=== PATIENT | female | born 1985 | race Caucasian/White ===

== ENCOUNTER → 2016-11-02 | Outpatient (CLI) | payer MEDICARE, OTHER ==
--- NOTE | 2016-11-02 11:49 | FL ---
EXAMINATION TYPE: FL barium swallow w video DATE OF EXAM: 11/02/2016 11:31 AM COMPARISON: NONE HISTORY: Pelvis and debris collection in the posterior nasopharynx. TECHNIQUE: Fluoroscopy. FINDINGS: Fluoroscopic guidance was provided for the procedure performed in conjunction with the [facility] pathology department. Please see complete report forthcoming from the Speech Pathology departmen t. Various consistencies from thin liquid to solids were administered. No aspiration or penetration was evident. No significant pooling was observed in the vallecula. There was normal propulsion of the bolus. IMPRESSION: 1. Normal modified barium swallow.
== END | disposition home or self-care (01) ==
LOC: RADFLMAIN 09:57
PROVIDERS: ATTEND Otolaryngology
DX: R13.10 Dysphagia, unspecified (principal)
CPT/HCPCS: 74230

== ENCOUNTER 2018-05-11 14:40 | Inpatient (IN) | payer MEDICARE, MEDICAID ==
--- NOTE | 2018-05-11 15:43 | ED ---
General Adult HPI - General Chief complaint: Psychiatric Symptoms Stated complaint: Psychosis Time Seen by Provider: 05/11/18 14:47 Source: patient, family, police, EMS, RN notes reviewed Mode of arrival: ambulatory Limitations: altered mental status - History of Present Illness Initial comments: Chief complaint history of present illness this is a 32-year-old female brought emergency room by [employer]. The patient's family filled out a petition. The patient does have history of psychotic breaks in the past. Patient states that she is suffering from past life he has deep. 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 Patient also presents with swollen left wrist left hand which is black and blue. Does not have an explanation as to how that happened. - Related Data Previous Rx's Medication Instructions Recorded ARIPiprazole [Abilify] 15 mg PO DAILY #30 tab 11/26/14 Allergies Allergy/AdvReac Type Severity Reaction Status Date / Time Sulfa (Sulfonamide Allergy Rash/Hives Verified 11/24/14 11:49 Antibiotics) Review of Systems ROS Statement: Those systems with pertinent positive or pertinent negative responses have been documented in the HPI. Review of systems. Due to the patient's general psychotic states she's not answering questions in an appropriate manner. Past medical problems is observed includes psychotic breaks. ALLERGIES to sulfa denies smoking denies drinking. What little history is available, small charges the patient's not answering correctly. ROS Other: All systems not noted in ROS Statement are negative. Past Medical History Past Medical History: No Reported History History of Any Multi-Drug Resistant Organisms: None Reported Past Surgical History: No Surgical Hx Reported Past Anesthesia/Blood Transfusion Reactions: No Reported Reaction Past Psychological History: Schizophrenia Smoking Status: Current every day smoker Past Alcohol Use History: None Reported Past Drug Use History: None Reported - Past Family History Father Family Medical History: No Reported History Additional Family Medical History / Comment(s): Age 52 Mother Family Medical History: No Reported History Additional Family Medical History / Comment(s): Age 52 General Exam - General Exam Comments Initial Comments: General: The patient is awake, appears agitated, speaking in her Rayle's about not see Lobo, [place], medical problems 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 Vital signs shows temperature 90.8 pulse 126 respiratory rate 16 pulse ox 90% room air blood pressure 170/103. Eye: Pupils are equal, round and reactive to light, extra-ocular movements are intact ; there is normal conjunctiva bilaterally. No signs of icterus. Ears, nose, mouth and throat: There are moist mucous membranes and no oral lesions. Neck: The neck is supple, no complaint of neck pain when asked. Cardiovascular: Tachycardic heart rate 120. Respiratory: Lungs are clear to auscultation, respirations are non-labored, breath sounds are equal. No wheezes, stridor, rales, or rhonchi. Gastrointestinal: No apparent discomfort with palpation. No guarding. Back: There is no tenderness to palpation in the midline. There is no obvious deformity. No rashes noted. Musculoskeletal: The patient is not well kept. She does have what there does appear to have been a surgery on the radial aspect of the wrist. The patient states that this was done by a surgeon to gain control over her. appears to be a painful swollen left wrist and hand. Neurological: Patient is able to stand and walk. Move her upper and lower extremities when asked to do so. Skin: Multiple areas where the patient has caused excoriation. Psychiatric: Patient appears to have a psychotic break. Talking gibberish, thinks she is suffering past life PTSD. 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 Limitations: altered mental status Course Vital Signs 05/11/18 05/11/18 14:54 19:04 Temperature 98 F Pulse Rate 126 H 111 H Respiratory 16 18 Rate Blood Pressure 170/103 O2 Sat by Pulse 98 98 Oximetry Procedures - Procedures Initial comment: 6 OCL splint 3" x 12" applied left hand and wrist, short forearm application. Dr. Delgado Medical Decision Making - Medical Decision Making The patient's discharge. Thoughts and conversation continue. Past history of psychotic break. Today's episode seems similar to events with the patient was admitted in medications altered. Labs show white count of 7 hemoglobin 13 hematocrit of 40 with a potassium 4.5. BUN 18 creatinine 0.7 GFR greater than 90. Glucose 122. Toxicology negative for Tylenol, aspirin. Patient was evaluated by psychiatric nurse she spoke with the psychiatrist the patient be admitted to the hospital. Tray of the wrist and hand done and reviewed by the radiologist. His impression is suspected acute fracture through the distal radius and radial aspect pass a prior open reduction internal fixation as read by Dr. Chavez I applied a 3" x 12" OCL splint for stabilization. Patient reports feeling better. No change in neuro status to the fingertips after application of the splint. Patient advised to keep it elevated - Lab Data Result diagrams: 05/11/18 16:32 05/11/18 16:32 Lab Results 05/11/18 05/11/18 Range/Units 16:32 16:32 WBC 7.3 (3.8-10.6) k/uL RBC 4.46 (3.80-5.40) m/uL Hgb 13.0 (11.4-16.0) gm/dL Hct 40.9 (34.0-46.0) % MCV 91.7 (80.0-100.0) fL MCH 29.2 (25.0-35.0) pg MCHC 31.9 (31.0-37.0) g/dL RDW 13.1 (11.5-15.5) % Plt Count 635 H (150-450) k/uL Neutrophils % 63 % Lymphocytes % 28 % Monocytes % 5 % Eosinophils % 1 % Basophils % 0 % Neutrophils # 4.6 (1.3-7.7) k/uL Lymphocytes # 2.1 (1.0-4.8) k/uL Monocytes # 0.4 (0-1.0) k/uL Eosinophils # 0.1 (0-0.7) k/uL Basophils # 0.0 (0-0.2) k/uL Sodium 143 (137-145) mmol/L Potassium 4.5 (3.5-5.1) mmol/L Chloride 107 (98-107) mmol/L Carbon Dioxide 25 (22-30) mmol/L Anion Gap 11 mmol/L BUN 18 H (7-17) mg/dL Creatinine 0.70 (0.52-1.04) mg/dL Est GFR (CKD-EPI)AfAm >90 (>60 ml/min/1.73 sqM) Est GFR (CKD-EPI)NonAf >90 (>60 ml/min/1.73 sqM) Glucose 122 H (74-99) mg/dL Calcium 10.5 H (8.4-10.2) mg/dL Total Bilirubin 0.3 (0.2-1.3) mg/dL AST 40 H (14-36) U/L ALT 38 (9-52) U/L Alkaline Phosphatase 99 (38-126) U/L Total Protein 8.1 (6.3-8.2) g/dL Albumin 5.0 (3.5-5.0) g/dL Salicylates <1.0 mg/dL Acetaminophen <10.0 ug/mL Serum Alcohol <10 mg/dL Disposition Clinical Impression: Psychotic disorder, Fracture of left radius Disposition: TRANSFER TO PSYCH HOSP/UNIT Condition: Serious Is patient prescribed a controlled substance at d/c from ED?: No Referrals: None,Stated [Primary Care Provider] - 1-2 days
[2018-05-11] MEDS ORDERED: SODIUM CHLORIDE 0.9% 500 ML IV STA (15:44)
[2018-05-11 16:45] LABS: Basophils % (A) 0 %; Eosinophils # (A) 0.1 k/uL (0-0.7); Eosinophils % (A) 1 %; HCT 40.9 % (34.0-46.0); Lymphocytes # (A) 2.1 k/uL (1.0-4.8); Lymphocytes % (A) 28 %; MCH 29.2 pg (25.0-35.0); MCHC 31.9 g/dL (31.0-37.0); MCV 91.7 fL (80.0-100.0); Mean Platelet Volume 6.2; Monocytes # (A) 0.4 k/uL (0-1.0); Monocytes % (A) 5 %; Neutrophils # (A) 4.6 k/uL (1.3-7.7); Neutrophils % (A) 63 %; Platelet Count 635 k/uL (150-450); RBC 4.46 m/uL (3.80-5.40); RDW 13.1 % (11.5-15.5); WBC 7.3 k/uL (3.8-10.6)
[2018-05-11 17:26] LABS: ALT 38 U/L (9-52); AST 40 U/L (14-36); Acetaminophen <10.0 ug/mL; Alcohol <10 mg/dL; Alkaline Phosphatase 99 U/L (38-126); Anion Gap 11 mmol/L; Blood Urea Nitrogen 18 mg/dL (7-17); Calcium 10.5 mg/dL (8.4-10.2); Carbon Dioxide 25 mmol/L (22-30); Chloride 107 mmol/L (98-107); Glucose 122 mg/dL (74-99); Potassium 4.5 mmol/L (3.5-5.1); Salicylate <1.0 mg/dL; Sodium 143 mmol/L (137-145); Total Bilirubin 0.3 mg/dL (0.2-1.3); Total Protein 8.1 g/dL (6.3-8.2)
--- NOTE | 2018-05-11 18:22 | XR ---
EXAMINATION TYPE: XR wrist complete LT DATE OF EXAM: 05/11/2018 COMPARISON: None at this location. HISTORY: Pain TECHNIQUE: 4 view left wrist. FINDINGS: There are plate and screws over the distal radius compatible with prior open reduction inte rnal fixation. There appears to be an acute fracture from the radial aspect of the distal radius with extension into the articular surface. This extends past a distal radial screw. The wrist appears intact. Mild diffuse soft tissue swelling appears to be present. IMPRESSION: 1. Suspected acute fracture through the distal radius the radial aspect pass a prior open reduction internal fixation.
--- NOTE | 2018-05-11 18:25 | XR ---
EXAMINATION TYPE: XR hand complete LT DATE OF EXAM: 05/11/2018 COMPARISON: Wrist images same date HISTORY: Pain TECHNIQUE: Three-view left hand FINDINGS: The suspected fracture of the distal radius is again evident. On this image there appears t o be a fracture of the ulnar styloid as well. The hand appears intact. No acute fractures within the hand are evident. Mild joint space narrowing i s present. Soft tissue swelling is over the wrist. IMPRESSION: 1. Fracture of the wrist including the distal radius and likely of the ulnar styloid not as well-vis ualized on the wrist study. 2. The left hand appears intact.
[2018-05-11] MEDS ORDERED: MAG HYDROX/AL HYDROX/SIMETH 30 ML CUP PO PRN (21:10)
[2018-05-11] MEDS ORDERED: ZIPRASIDONE 20 MG VIAL IM PRN (21:10)
[2018-05-11] MEDS ORDERED: MAGNESIUM HYDROXIDE 2,400 MG/10 ML CUP PO PRN (21:10)
[2018-05-11] MEDS ORDERED: LORazepam 1 MG TAB PO PRN (21:10)
[2018-05-11] MEDS ORDERED: ACETAMINOPHEN TAB 325 MG TAB PO PRN (21:10)
[2018-05-11] MEDS ORDERED: LORazepam 2 MG/ML INJ IM PRN (21:31)
[2018-05-11] MEDS ORDERED: WATER FOR INJECTION, STERILE 10 ML IV ONE (21:41)
[2018-05-11] MEDS ORDERED: ZIPRASIDONE 20 MG VIAL IM ONE (21:41)
[2018-05-11] MEDS: DIVALPROEX 500 MG TABLET.DR PO SCH (21:51)
[2018-05-12 00:07] VITALS: BMI 20.2
[2018-05-12] MEDS ORDERED: HALOPERIDOL LACTATE 5 MG/ML 1 ML VIAL IM STA (03:20)
[2018-05-12] MEDS ORDERED: LORazepam 2 MG/ML INJ IM STA (03:22)
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
[2018-05-12] MEDS: ARIPiprazole 10 MG TAB PO SCH (11:05)
[2018-05-12] MEDS: NICOTINE 14MG/24HR PATCH TRANSDERM SCH (11:05)
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
[2018-05-12] MEDS: DIVALPROEX 500 MG TABLET.DR PO SCH (20:11)
[2018-05-12 23:28] LABS: Bilirubin, Delta 0.3 mg/dL (0.0-0.2); Total Bilirubin 0.3 mg/dL (0.2-1.3); Total Protein 8.2 g/dL (6.3-8.2)
[2018-05-13] MEDS: ARIPiprazole 10 MG TAB PO SCH (08:48)
[2018-05-13] MEDS: NICOTINE 14MG/24HR PATCH TRANSDERM SCH (08:49)
[2018-05-13] MEDS ORDERED: ARIPiprazole 400 MG VIAL (NO CHARGE) IM ONE (09:54)
--- NOTE | 2018-05-13 09:59 | P.PN ---
Progress Note - Text Interval history: The patient is found in her room she follows me to an interview room. The patient was admitted again to the mental health unit for acute symptoms of psychosis. A drug screen was not available however this usually occurs in the context of stimulant or opioid use which exacerbates her psychosis. She admits to using Concerta recently before this admission. She was picked up by police his family called for help. The patient was reported to be agitated and demonstrating bizarre behavior. She apparently fractured her left upper extremity and has undergone open reduction internal fixation. She is focused on that injury and getting that cared for. We reviewed her last many mental health note from November. She states that she had stopped going to appointments. We reviewed her current psychotropic medication. She is agreeable to continuing with Abilify and is agreeable to having the Abilify maintena injection again. She was also placed on Depakote. This may not be necessary. I will confer with the treatment team regarding her recent behavior on the mental health unit. Historically she has been managed with Abilify as a mood stabilizer. Mental status exam: The patient is a thin female appearing her stated age. She has a disheveled appearance hygiene seems impaired. She is wearing eyeglasses. She has a splint that is wrapped in gauze involving her left hand and arm. She is dressed in her own attire which appears oversized. She has little spontaneous speech she appears to have some thought blocking. She appears distractible. She is endorsing no symptoms. She denies having any hallucinations or specific delusions. She denies having any thoughts of harming herself or others. She is not a valid historian at this time. She demonstrated no verbal or physical aggressiveness. She demonstrates no abnormal involuntary movements. Insight and judgment are impaired. Affect is flat. Plan: The patient will continue on the Abilify at its current dose. She is agreeable to receiving the Abilify maintena injection which she has been on in the past. We will initiate this at 400 mg IM today. I will consider discontinuing the Depakote as it may not be necessary as an augmentation strategy. I will confirm with staff regarding her behavior on the mental health unit. Vital signs reviewed. We will monitor her for safety. Reality orientation is provided when possible.
[2018-05-13] MEDS ORDERED: ARIPiprazole IM SYRINGE 400 MG (NO CHARGE) IM ONE (10:15)
[2018-05-13 11:52] LABS: Hemoglobin A1C 5.5 % (4.0-6.0)
[2018-05-13] MEDS: IBUPROFEN 600 MG TAB PO PRN (14:05)
--- NOTE | 2018-05-13 15:08 | P.CNOR ---
History of Present Illness - HPI Consult date: 05/13/18 History of present illness: This is a 32 year-old female who is admitted to the mental health unit. Orthopedics is consulted due to left wrist injury. Patient had a fall one week ago. Patient has a history of ORIF of the left wrist. Patient admits to pain in the left wrist today and states that her splint is not supportive. Patient denies any numbness, weakness or tingling. Review of Systems See HPI. Past Medical History Past Medical History: No Reported History, Unable to Obtain Additional Past Medical History / Comment(s): due to acute psychosis History of Any Multi-Drug Resistant Organisms: None Reported Past Surgical History: Unable to Obtain Additional Past Surgical History / Comment(s): xray of the left forearm shows evidence of open reduction and internal fixation of old fracture of the L forearm Past Anesthesia/Blood Transfusion Reactions: No Reported Reaction Past Psychological History: Unable to Obtain Smoking Status: Current every day smoker - Past Family History Father Family Medical History: No Reported History, Unable to Obtain Additional Family Medical History / Comment(s): Age 52 Mother Family Medical History: No Reported History, Unable to Obtain Additional Family Medical History / Comment(s): Age 52 Medications and Allergies Home Medications Medication Instructions Recorded Confirmed Type ARIPiprazole [Abilify] 15 mg PO DAILY #30 tab 11/26/14 05/11/18 Rx Allergies Allergy/AdvReac Type Severity Reaction Status Date / Time Sulfa (Sulfonamide Allergy Rash/Hives Verified 05/11/18 23:06 Antibiotics) Physical Examination On exam patient is lying comfortably in bed in on acute distress. There is no swelling, erythema or ecchymosis of the left wrist. There is tenderness to palpation over the left wrist. Patient has good range of motion of the left hand. Patient has pain with range of motion of the left wrist. Sensation intact. Capillary refill is normal at <2 seconds. Neurovascular status and circulatory status are intact. Results X-rays of the left wrist and hand are negative for any acute fracture or dislocation. Evidence of an old fracture left distal radius. No loosening of hardware. - Labs Labs: Abnormal Lab Results - Last 24 Hours (Table) 05/11/18 Range/Units 16:32 Delta Bilirubin 0.3 H (0.0-0.2) mg/dL AST 44 H (14-36) U/L Cholesterol 205 H (<200) mg/dL LDL Cholesterol, Calc 127 H (0-99) mg/dL H & H 05/11/18 Range/Units 16:32 Hgb 13.0 (11.4-16.0) gm/dL Hct 40.9 (34.0-46.0) % Result Diagrams: 05/11/18 16:32 05/11/18 16:32 Assessment and Plan (1) Left wrist pain Current Visit: Yes Status: Acute Code(s): M25.532 - PAIN IN LEFT WRIST SNOMED Code(s): 28887639 (2) Sprain of left wrist Current Visit: Yes Status: Acute Code(s): S63.502A - UNSPECIFIED SPRAIN OF LEFT WRIST, INITIAL ENCOUNTER SNOMED Code(s): 46120788 Plan: 1. Will obtain a brace for the left wrist. 2. Rest, ice and elevate the left wrist. 3. Work on gentle range of motion. 4. No surgical intervention planned. Patient may follow up as an outpatient on an as needed basis.
[2018-05-13] MEDS: DIVALPROEX 500 MG TABLET.DR PO SCH (20:11)
[2018-05-14] MEDS: NICOTINE 14MG/24HR PATCH TRANSDERM SCH (08:17)
[2018-05-14] MEDS: ARIPiprazole 10 MG TAB PO SCH (08:18)
[2018-05-14] MEDS: IBUPROFEN 600 MG TAB PO PRN ×2 (08:18→16:54)
--- NOTE | 2018-05-14 11:03 | P.PN ---
Progress Note - Text Interval history: The patient's found in her room she follows me to an interview room. Staff report that the patient has been isolating in her room other than meals. She was seen by orthopedics their consult was reviewed. They recommend a brace for her left upper extremity. We reviewed her medications. She has no questions regarding Abilify. She states that the Depakote seems to help stabilize her mood. She denies having any symptoms. Mental status exam: The patient is alert, hygiene grooming are impaired, she has not showered since she's been on the mental health unit. Eye contact is intermittent. She is dressed in the same clothing is yesterday. She has a splint on her left upper extremity which is wrapped in gauze. She quickly denies having any symptoms when asking about suicidal thoughts homicidal thoughts or symptoms of psychosis. She offers little spontaneous speech. She demonstrates no abnormal involuntary movements. She demonstrates no verbal or physical aggressiveness. She maintains a flat affect. Insight and judgment limited. Plan: The patient will continue on her current medications, we will continue to evaluate her daily to assess her clinical stabilization. We will monitor her for safety. She is instructed to shower and participate in the milieu. Vital signs reviewed.
[2018-05-14 17:02] LABS: Amorphous Sediment,Urine Rare /hpf; Appearance,Urine Cloudy (Clear); Bilirubin,Urine Negative (Negative); Blood,Urine Negative (Negative); Color,Urine Yellow; Glucose,Urine (UA) Negative (Negative); Ketones,Urine Negative (Negative); Leukocyte Esterase,Urine Negative (Negative); Mucus,Urine Rare /hpf; Nitrite,Urine Negative (Negative); PH, Urine 6.5 (5.0-8.0); Protein,Urine Negative (Negative); RBC,Urine 1 /hpf (0-5); Specific Gravity,Urine 1.019 (1.001-1.035); Squamous Epithelial Cell,Urine 3 /hpf (0-4); Urobilinogen,Urine <2.0 mg/dL (<2.0)
[2018-05-14 17:10] LABS: Amphetamine Screen,Urine Not Detected (NotDetected); Barbiturate Screen,Urine Not Detected (NotDetected); Benzodiazepines Screen,Urine Not Detected (NotDetected); Cocaine Screen,Urine Not Detected (NotDetected); Methadone Screen, Urine Not Detected (NotDetected); Opiate Screen,Urine Not Detected (NotDetected); Oxycodone Screen, Urine Not Detected (NotDetected); Phencyclidine Screen,Urine Not Detected (NotDetected); Tricyclic Antidepressant,Urine Not Detected (NotDetected); Urn Cannabinoid Scrn Not Detected (NotDetected)
[2018-05-14] MEDS: DIVALPROEX 500 MG TABLET.DR PO SCH (20:20)
[2018-05-15 06:48] VITALS: BP 127/76; PULSE 83; RESP 14; TEMP 98.1
[2018-05-15] MEDS: IBUPROFEN 600 MG TAB PO PRN ×2 (08:28→17:16)
[2018-05-15] MEDS: ARIPiprazole 10 MG TAB PO SCH (08:28)
[2018-05-15] MEDS: NICOTINE 14MG/24HR PATCH TRANSDERM SCH (08:31)
--- NOTE | 2018-05-15 08:41 | P.PN ---
Progress Note - Text Interval history: The patient is found in her room she follows me to an interview room. The patient now has an orthopedic brace on her left hand. She states that she was able to sleep last night to shower yesterday and attended one group. We discussed the importance of her attending most of the groups. In comparison to when she came in she states she feels better. She states that she felt "scrambled". She feels that her thoughts are beginning to become more organized. Mental status exam: The patient is alert she is a thin female appearing her stated age. She is wearing an orthopedic brace on her left hand. She wears her eyeglasses. Hygiene and grooming are improved. She is dressed in hospital gowns. She reports her mood is improved. She continues to deny having any auditory or visual hallucinations or any specific delusions. She presented with acute delusional thought content. She demonstrates no verbal or physical aggressiveness. She is oriented to person place and date. There is some poverty of thought. She does not generate conversation but will provide responses to questions asked. Insight and judgment are limited. She is reporting no suicidal or homicidal ideation intent or plan. Plan: The patient will continue on her current medication. She is instructed to fully engage in the milieu today. She does appear to be stabilizing in terms of her acute symptoms. I anticipate she will be appropriate for discharge in the next 1-2 days. Vital signs reviewed.
[2018-05-15] MEDS: DIVALPROEX 500 MG TABLET.DR PO SCH (20:12)
[2018-05-16] MEDS: IBUPROFEN 600 MG TAB PO PRN (08:20)
[2018-05-16] MEDS: ARIPiprazole 10 MG TAB PO SCH (08:20)
--- NOTE | 2018-05-16 08:40 | P.DS ---
Providers Date of admission: 05/11/18 20:41 Expected date of discharge: 05/16/18 Attending physician: Alek Hill Consults: 05/11/18 21:10 Consult Physician Routine Consulting Provider: James Page Consult Reason/Comments: H & P and medical care Do you want consulting provider notified?: Yes Primary care physician: Stated None - Discharge Diagnosis(es) (1) Schizophrenia Current Visit: Yes Status: Acute Priority: High (2) Stimulant use disorder Current Visit: Yes Status: Acute Priority: High (3) Opioid use disorder Current Visit: Yes Status: Acute Priority: Medium Hospital Course: Brief summary of admission note: This patient is a 32-year-old single female who was admitted to the mental health unit for symptoms of acute psychosis and bizarre agitated behavior. She was brought in by the police as she was petition by family. the patient is known to have a history of schizophrenia and had been noncompliant with medication. She is also known to have a history of stimulant and opiate abuse. For full details please refer to the psychiatric evaluation dated 05/12/2018. Summary of hospital course: The patient was admitted to the mental health unit she did sign in voluntarily. I assumed her care this past Sunday. She was evaluated by the [facility] physician and started on Abilify and Depakote. The patient has been stabilized with Abilify several times in the past. She was agreeable to receiving the Abilify maintena injection. The Abilify maintena injection was given on 05/13/2018. The Depakote was discontinued as it is felt to be unnecessary. The patient isolated in her room for several days but she has been increasing her participation in the milieu especially yesterday. She is alert she has been attending to her activities of daily living and is directable. She did present with a sprain of her left hand she was seen by orthopedics and was given a brace. This is in the context of her having a previous fracture to that extremity. We discussed the patient's substance use as she reported using stimulants not prescribed to her. She does not wish to participate in inpatient chemical dependency treatment. Mental status exam: The patient is a thin female appearing her stated age. She presents with adequate hygiene grooming. She is wearing her eyeglasses she is wearing an orthopedic brace on her left hand. She is dressed in her own clothing. She seated calmly in the chair. Eye contact is appropriate speech is fluent spontaneous nonpressured. She reports her mood is better. She is reporting no suicidal or homicidal ideation intent or plan. She is reporting no auditory or visual hallucinations. She is endorsing no specific delusions. She is demonstrating much less psychomotor slowing. Affect demonstrates some range including smiling and appropriate use of humor. She does not demonstrate any tangential thinking loose associations or flight of ideas. She does not appear hypomanic or manic. She remains oriented to person place and date. She is demonstrating no verbal or physical aggressiveness. She demonstrates no abnormal involuntary movements. Impressions 1. Schizophrenia, stimulant use disorder, opioid use disorder 2. Sprain of left hand, history of fracture to that extremity Plan: The patient will be discharged from the mental health unit to return home. She will continue on Abilify 10 mg daily for a total of 14 days after receiving the Abilify maintena injection. She was given her last Abilify maintena injection on 05/13/2018 which was 400 mg. The Depakote is felt to be unnecessary and I will discontinue that medication. She is instructed to abstain from any use of alcohol or marijuana or any illicit drug. She specifically instructed to abstain from any use of stimulants. We discussed these medications we'll exacerbate symptoms of psychosis and elevate her safety risk area she does not wish to participate in inpatient chemical dependency treatment. She is willing to address these issues along with her symptoms of psychosis as an outpatient and we'll continue to follow with [facility]. She will follow up with orthopedics regarding her left hand as directed. She is instructed to return to the hospital with any acute safety concerns. Patient Condition at Discharge: Stable Plan - Discharge Summary Discharge Rx Participant: Yes New Discharge Prescriptions: New ARIPiprazole [Abilify] 10 mg PO DAILY #11 tab ARIPiprazole IM [Abilify Maintena] 400 mg IM QMONTH #1 vial Discontinued ARIPiprazole [Abilify] 15 mg PO DAILY #30 tab Discharge Medication List ARIPiprazole IM [Abilify Maintena] 400 mg IM QMONTH #1 vial 05/16/18 [Rx] ARIPiprazole [Abilify] 10 mg PO DAILY #11 tab 05/16/18 [Rx] Follow up Appointment(s)/Referral(s): None,Stated [Primary Care Provider] - 1-2 days
== END 2018-05-16 12:53 | disposition home or self-care (01) | DRG 885 ==
LOC: EC 14:40 → EEVIPCON 20:41 → 3MHU 20:41
PROVIDERS: ADMIT Psychiatry & Neurology Psychiatry; ATTEND Psychiatry & Neurology Psychiatry
DX: F20.0 Paranoid schizophrenia (principal); S52.92XA Unspecified fracture of left forearm, initial encounter for closed fracture; F11.10 Opioid abuse, uncomplicated; F15.10 Other stimulant abuse, uncomplicated; F17.200 Nicotine dependence, unspecified, uncomplicated; S63.502A Unspecified sprain of left wrist, initial encounter; V18.4XXA Pedal cycle driver injured in noncollision transport accident in traffic accident, initial encounter; Y93.55 Activity, bike riding; Z79.899 Other long term (current) drug therapy; Z91.14 Patient's other noncompliance with medication regimen; Z88.2 Allergy status to sulfonamides
CPT/HCPCS: 29125; 36415; 80053; 80061; 80076; 80306; 80320; 81001; 83036; 83520; 84443; 84703; 85025; 96360; 99285

== ENCOUNTER 2018-05-23 13:47 | Inpatient (IN) | payer MEDICARE, MEDICAID ==
--- NOTE | 2018-05-23 14:32 | ED ---
General Adult HPI - General Chief complaint: Psychiatric Symptoms Stated complaint: Mental Health Time Seen by Provider: 05/23/18 13:49 Source: patient, police, RN notes reviewed Mode of arrival: ambulatory Limitations: no limitations - History of Present Illness Initial comments: Patient is a 32-year-old female presenting to the emergency department with secretary of police escort. Patient is petition. Patient states she was taken from her trailer where she is doing work in [employer]. Patient is singing most of her sentences and sings spontaneously disorganized thoughts. Patient also mentions concerns regarding a federal agent. Patient also states she needs to contact the master of [employer]. She states he is too busy at this time for her to contact him. Patient otherwise states she has no problems. Patient denies any hallucinations. Patient states she is taking her medications. Patient has no physical complaints. - Related Data Previous Rx's Medication Instructions Recorded ARIPiprazole [Abilify] 10 mg PO DAILY #11 tab 05/16/18 Allergies Allergy/AdvReac Type Severity Reaction Status Date / Time Sulfa (Sulfonamide Allergy Rash/Hives Verified 05/23/18 14:57 Antibiotics) Review of Systems ROS Statement: Those systems with pertinent positive or pertinent negative responses have been documented in the HPI. ROS Other: All systems not noted in ROS Statement are negative. Constitutional: Denies: fever Eyes: Denies: eye pain ENT: Denies: ear pain Respiratory: Denies: cough Cardiovascular: Denies: chest pain Endocrine: Denies: fatigue Gastrointestinal: Denies: abdominal pain Genitourinary: Denies: dysuria Musculoskeletal: Denies: back pain Skin: Denies: rash Neurological: Denies: weakness Psychiatric: Denies: auditory hallucinations, visual hallucinations, homicidal thoughts, suicidal thoughts Past Medical History Past Medical History: No Reported History, Unable to Obtain Additional Past Medical History / Comment(s): due to acute psychosis History of Any Multi-Drug Resistant Organisms: None Reported Past Surgical History: Unable to Obtain Additional Past Surgical History / Comment(s): xray of the left forearm shows evidence of open reduction and internal fixation of old fracture of the L forearm Past Anesthesia/Blood Transfusion Reactions: No Reported Reaction Past Psychological History: Unable to Obtain Smoking Status: Current every day smoker - Past Family History Father Family Medical History: No Reported History, Unable to Obtain Additional Family Medical History / Comment(s): Age 52 Mother Family Medical History: No Reported History, Unable to Obtain Additional Family Medical History / Comment(s): Age 52 General Exam Limitations: no limitations General appearance: alert, in no apparent distress Head exam: Present: atraumatic Eye exam: Present: normal appearance ENT exam: Present: normal oropharynx Neck exam: Present: normal inspection Respiratory exam: Present: normal lung sounds bilaterally Cardiovascular Exam: Present: regular rate, normal rhythm GI/Abdominal exam: Present: soft. Absent: tenderness Extremities exam: Present: normal inspection Neurological exam: Present: alert Psychiatric exam: Present: other (Flight of ideas. Hypomanic. Disorganized thoughts.) Skin exam: Present: normal color Course Vital Signs 05/23/18 13:56 Temperature 97.6 F Pulse Rate 114 H Respiratory 22 Rate Blood Pressure 136/84 O2 Sat by Pulse 99 Oximetry Medical Decision Making - Medical Decision Making Patient was seen by mental health services with plans for admission. Positive clinical certificate completed. Disposition Clinical Impression: Acute psychosis Disposition: TRANSFER TO PSYCH HOSP/UNIT Is patient prescribed a controlled substance at d/c from ED?: No Referrals: None,Stated [Primary Care Provider] - 1-2 days Decision Time: 16:04
[2018-05-23] MEDS ORDERED: ZIPRASIDONE 20 MG VIAL IM STA (15:28)
[2018-05-23] MEDS ORDERED: LORazepam 2 MG/ML INJ IM STA (15:29)
[2018-05-23] MEDS ORDERED: MAGNESIUM HYDROXIDE 2,400 MG/10 ML CUP PO PRN (16:18)
[2018-05-23] MEDS ORDERED: MAG HYDROX/AL HYDROX/SIMETH 30 ML CUP PO PRN (16:18)
[2018-05-23] MEDS ORDERED: ZIPRASIDONE 20 MG VIAL IM PRN (16:18)
[2018-05-23] MEDS: ARIPiprazole 10 MG TAB PO SCH (17:09)
[2018-05-23] MEDS: NICOTINE 14MG/24HR PATCH TRANSDERM SCH (17:11)
[2018-05-23 17:13] VITALS: BMI 17.2
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
[2018-05-24] MEDS: ARIPiprazole 10 MG TAB PO SCH (09:18)
[2018-05-24] MEDS: NICOTINE 14MG/24HR PATCH TRANSDERM SCH (09:19)
[2018-05-24 09:35] LABS: Basophils # (A) 0.1 k/uL (0-0.2); Basophils % (A) 1 %; Eosinophils # (A) 0.1 k/uL (0-0.7); Eosinophils % (A) 2 %; HCT 39.5 % (34.0-46.0); Lymphocytes # (A) 1.4 k/uL (1.0-4.8); Lymphocytes % (A) 20 %; MCH 30.3 pg (25.0-35.0); MCHC 32.8 g/dL (31.0-37.0); MCV 92.5 fL (80.0-100.0); Mean Platelet Volume 6.4; Monocytes # (A) 0.3 k/uL (0-1.0); Monocytes % (A) 4 %; Neutrophils # (A) 5.3 k/uL (1.3-7.7); Neutrophils % (A) 73 %; Platelet Count 477 k/uL (150-450); RBC 4.27 m/uL (3.80-5.40); RDW 12.7 % (11.5-15.5); WBC 7.2 k/uL (3.8-10.6)
[2018-05-24 10:13] LABS: ALT 32 U/L (9-52); AST 23 U/L (14-36); Albumin 4.3 g/dL (3.5-5.0); Alkaline Phosphatase 80 U/L (38-126); Anion Gap 9 mmol/L; Bilirubin, Delta 0.3 mg/dL (0.0-0.2); Bilirubin,Unconjugated 0.1 mg/dL (0.0-1.1); Blood Urea Nitrogen 19 mg/dL (7-17); Calcium 9.8 mg/dL (8.4-10.2); Carbon Dioxide 26 mmol/L (22-30); Chloride 106 mmol/L (98-107); Glucose 150 mg/dL (74-99); Sodium 141 mmol/L (137-145); Total Bilirubin 0.4 mg/dL (0.2-1.3)
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
[2018-05-24] MEDS: ACETAMINOPHEN TAB 325 MG TAB PO PRN (13:31)
[2018-05-25] MEDS: ACETAMINOPHEN TAB 325 MG TAB PO PRN (08:23)
[2018-05-25] MEDS: ARIPiprazole 10 MG TAB PO SCH (08:23)
[2018-05-25] MEDS: NICOTINE 14MG/24HR PATCH TRANSDERM SCH (08:23)
[2018-05-25] MEDS: LORazepam 1 MG TAB PO PRN (15:28)
--- NOTE | 2018-05-25 15:30 | P.PN ---
Progress Note - Text Progress Note Date: 05/25/18 Interval history: Patient seen in cross coverage today. She describes that she had been having thoughts that the RAMEZ was getting inside her mind. She reports that she is not thinking this way today. She was just recently hospitalized as an inpatient states she received an injection of Abilify maintenna. Mental status exam: She is alert and cooperative with the interview. Her affect overall is restricted. She describes her mood as "embarrassed." She denies any thoughts of harm to self or others. She reports that she had been dealing with thoughts that the RAMEZ was getting inside her mind, currently denies these thoughts. She does not verbalize any hallucinations. Plan: Patient will be maintained on current psychotropic medication regimen. Continue to monitor for any medication side effects and monitor her ongoing response. We'll continue to cover this patient through the weekend.
[2018-05-26] MEDS: ARIPiprazole 10 MG TAB PO SCH (08:31)
[2018-05-26] MEDS: NICOTINE 14MG/24HR PATCH TRANSDERM SCH (08:31)
--- NOTE | 2018-05-26 15:32 | P.PN ---
Progress Note - Text Progress Note Date: 05/26/18 Interval history: Patient is seen in [facility] again today. She does state that her mood is doing pretty good today. She states that she did eat breakfast and lunch today. She does not voice any adverse psychotropic medication side effects. Mental status exam: She is alert and cooperative with the interview. Her answers are fairly brief. She has overall restricted affect. She denies any thoughts of harm to self or others. She denies any paranoid/bothersome thoughts. She describes her mood is doing pretty good. Plan: Patient will be maintained on current psychotropic medication regimen. Continue to monitor for any medication side effects and monitor her ongoing response to treatment. Continue to monitor for any psychosis symptoms.
[2018-05-26] MEDS: LORazepam 1 MG TAB PO PRN (17:31)
[2018-05-27] MEDS: NICOTINE 14MG/24HR PATCH TRANSDERM SCH (09:05)
[2018-05-27] MEDS: ARIPiprazole 10 MG TAB PO SCH (09:05)
--- NOTE | 2018-05-27 10:26 | P.PN ---
Progress Note - Text Progress Note Date: 05/27/18 Interval History: Patient is a 32-year-old female who is being seen in coverage for Dr. Hill patient reports that she is feeling better but cannot elaborate on that further. She states she has not been attending groups or activities and has been sleeping and eating well. She denies any side effects from the medication. Mental Status: Appearance/Attitude: Patient is found in her room comes to the interview room dressed casually and makes intermittent eye contact and was cooperative. Behavior: Patient does not exhibit any psychomotor agitation or retardation. Speech/Language: Patient's speech is of normal volume and rhythm and she is coherent Thought Process: Patient's answers are brief and goal directed with little elaboration Thought Content: Patient denies any auditory or visual hallucinations and no delusions or paranoid ideation were elicited. Patient states she's been sleeping and eating well but has not been attending groups or activities and does not report any side effects. Suicidal/Homicidal Ideation: Patient denies any current suicidal or homicidal ideation Sensorium/Cognition: Patient is alert and oriented to person, place and time Mood/Affect: Patient's mood is pleasant and her affect is blunted Insight/Judgment: Patient's insight and judgment are fair Assessment: Patient continues on Abilify 10 mg orally and states that she is not having any psychotic symptoms and was not feeling suicidal or depressed. Patient has been compliant with her medications here. She is not attending groups or activities. She reports that she is sleeping and eating well and no side effects from the medication. Plan: Patient continues on Abilify 10 mg, she received her long-acting injectable Abilify on May 13. Patient continues to require hospitalization to further stabilize.
[2018-05-27] MEDS: LORazepam 1 MG TAB PO PRN (16:12)
[2018-05-27] MEDS: ACETAMINOPHEN TAB 325 MG TAB PO PRN (16:12)
[2018-05-28] MEDS: ARIPiprazole 10 MG TAB PO SCH (08:18)
[2018-05-28] MEDS: NICOTINE 14MG/24HR PATCH TRANSDERM SCH (08:18)
--- NOTE | 2018-05-28 11:15 | P.PN ---
Progress Note - Text Interval history: The patient is found in her room she follows me to an interview room. The patient was readmitted for an exacerbation of her psychotic symptoms. She states she did not engage in any substance use but did go off of the oral Abilify. That has been since restarted upon her readmission. She states that she continues to have concerns that the government is placing applications on her brain and that she is able to be tracked. She reports being fearful of going to groups as the government can "track paranoid schizophrenia". She states she will attempt groups now but we talked about it. Since she has been here she feels a little safer. She describes being limited because of the temporary wrist brace she is wearing. Prior to last hospitalization she had sprained her left wrist. Mental status exam: The patient is an alert disheveled female she is than she is dressed in layers. She is wearing a temporary brace on her left upper extremity. She wears eyeglasses. She is cooperative. She does have spontaneous speech. She demonstrates no pressured speech. She is reporting no suicidal or homicidal ideation. She discusses her fearfulness that she is being tracked and does not wish to discuss her thoughts with others as this will worsen the monitoring. She describes the government being able to place applications on her brain. She does have a repetitive motion of sticking her tongue out during the session several times we will track this further. Plan: The patient will continue on the current medication she did stabilize on the oral Abilify last time all waiting for the Abilify maintena to reach efficacy. She is encouraged to attend groups we will monitor her food intake. Vital signs reviewed.
[2018-05-28] MEDS: ACETAMINOPHEN TAB 325 MG TAB PO PRN (15:46)
[2018-05-28] MEDS: LORazepam 1 MG TAB PO PRN (15:46)
[2018-05-29] MEDS: ARIPiprazole 10 MG TAB PO SCH (08:21)
--- NOTE | 2018-05-29 10:53 | P.PN ---
Progress Note - Text Interval history: The patient is found in her room she follows me to an interview room. She states she's feeling better. She states she was admitted here because she thought "we were going to war". She also indicates that the stress of just using one arm was overwhelming which also facilitated the admission. She states that she has been attending groups staff agreed that her group participation has increased. She reports eating meals. Mental status exam: The patient is a thin female appearing her stated age. She is wearing her eyeglasses she is dressed in her own clothing and is wearing a brace on her left wrist. She removes the brace and shows me the surgical wound which is closed with no sign of infection. She reports her mood is better. She maintains a bland affect. She is reporting no suicidal or homicidal ideation. It does appear that symptoms of psychosis seem to be improving. She demonstrates no verbal or physical aggressiveness. Again she seems to be protruding her tongue intermittently throughout the session area she was asked if she is doing this voluntarily and she was uncertain. She does indicate that her lips are dry. Plan: The patient will continue on her current psychotropic medication. It does appear that she is responding to the Abilify again. She is not sufficiently stabilized yet but may be appropriate for discharge sometime this week. We will monitor her by mouth intake and group participation. We will monitor for safety. Vital signs reviewed.
[2018-05-29] MEDS: ACETAMINOPHEN TAB 325 MG TAB PO PRN (15:21)
[2018-05-29] MEDS: LORazepam 1 MG TAB PO PRN (15:23)
[2018-05-30] MEDS: ARIPiprazole 10 MG TAB PO SCH (08:02)
--- NOTE | 2018-05-30 09:17 | P.PN ---
Progress Note - Text Interval history: The patient is found in the hallway she follows me to an interview room. She did attend goalsetting group this morning and states that she attended several groups yesterday. She states her mood is good. She indicates that she slept last night appetite is stable. She reports feeling safe in the hospital. She has no questions or concerns regarding her medication. Mental status exam: The patient's is dressed in her own clothing and hospital attire. She is wearing her eyeglasses and continues to wear the brace on her left wrist. She is seated in the chair she does shake her legs during the session. She does continue to have an intermittent protrusion of her tongue. She indicates her mood is good. Affect is constricted. She is reporting no suicidal or homicidal ideation intent or plan. She has little spontaneous speech but does provide an answer to questions asked. Thinking appears to be concrete. She demonstrates no verbal or physical aggressiveness. She is oriented to person place and date. She demonstrates no tangential thinking loose associations or flight of ideas. She denies having any auditory or visual hallucinations. She reports feeling safe and endorses no paranoid or persecutory thoughts. Plan: The patient continue on her current psychotropic medication. We continue to provide the oral form of the Abilify as we wait for the Abilify maintena to demonstrate efficacy. The patient appears to be stabilizing again here in the hospital. She may be appropriate for discharge as early as tomorrow. I will confer with the treatment team regarding her behavior over the last 24 hours. We'll continue to monitor her for safety.
[2018-05-30 11:30] LABS: Amphetamine Screen,Urine Not Detected (NotDetected); Barbiturate Screen,Urine Not Detected (NotDetected); Benzodiazepines Screen,Urine Detected (NotDetected); Cocaine Screen,Urine Not Detected (NotDetected); Methadone Screen, Urine Not Detected (NotDetected); Opiate Screen,Urine Not Detected (NotDetected); Oxycodone Screen, Urine Not Detected (NotDetected); Phencyclidine Screen,Urine Not Detected (NotDetected); Tricyclic Antidepressant,Urine Not Detected (NotDetected); Urn Cannabinoid Scrn Not Detected (NotDetected)
[2018-05-30 12:36] LABS: Appearance,Urine Turbid (Clear); Bilirubin,Urine Negative (Negative); Blood,Urine Negative (Negative); Color,Urine Light Yellow; Glucose,Urine (UA) Negative (Negative); Ketones,Urine Negative (Negative); Leukocyte Esterase,Urine Negative (Negative); Mucus,Urine Rare /hpf; Nitrite,Urine Negative (Negative); Protein,Urine Negative (Negative); Specific Gravity,Urine 1.012 (1.001-1.035); Squamous Epithelial Cell,Urine 1 /hpf (0-4); Urobilinogen,Urine <2.0 mg/dL (<2.0)
[2018-05-30] MEDS: LORazepam 1 MG TAB PO PRN (14:48)
[2018-05-30] MEDS: ACETAMINOPHEN TAB 325 MG TAB PO PRN (14:48)
[2018-05-31 06:35] VITALS: BP 105/51; PULSE 74; RESP 20; TEMP 98.2
[2018-05-31] MEDS: ARIPiprazole 10 MG TAB PO SCH (08:51)
--- NOTE | 2018-05-31 10:59 | P.DS ---
Providers Date of admission: 05/23/18 16:15 Expected date of discharge: 05/31/18 Attending physician: Alek Hill Consults: 05/23/18 16:18 Consult Physician Routine Consulting Provider: James Physician Consult Reason/Comments: Medical care Do you want consulting provider notified?: Yes Primary care physician: Stated None - Discharge Diagnosis(es) (1) Schizophrenia Current Visit: No Status: Acute Priority: High (2) Stimulant use disorder Current Visit: Yes Status: Acute Priority: High (3) Opioid use disorder Current Visit: No Status: Acute Priority: Medium Hospital Course: Brief summary admission note: The patient is a 32-year-old single female who was admitted to the mental health unit with a relapse of psychotic symptoms. The patient is known to us and had a recent admission for a similar presentation. She has a known history of schizophrenia. During her last hospitalization she was started on Abilify maintena and was provided with the oral medication until the depot form reached steady state. Upon discharge the patient did not comply with the oral Abilify and experienced symptoms of psychosis that were debilitating. She had presented stating we were at war and she felt she was in danger. For full details please refer to the psychiatric evaluation performed on 05/24/2018. Summary of hospital course: The patient was admitted to the mental health unit she signed in voluntarily. The oral Abilify was restarted. The patient initially did not attend groups but as she improved she became more active and participated. She noted a resolution of her psychotic symptoms while here. Again she was seen by internal medicine for routine history and physical exam. No further attention was needed regarding her orthopedic issue involving her left wrist. She demonstrated no agitated behavior no aggressiveness. She will be participating in a support meeting involving her friend Shekhar today prior to discharge. Mental status exam: The patient is a thin female appearing her stated age. She is wearing eyeglasses and her left wrist brace. She is dressed in her own clothing and a hospital gown. Speech is fluent nonpressured. She has little spontaneous speech but provides answers to questions asked although brief. She states her mood is fine. She has a constricted affect. She reports no suicidal or homicidal ideation intent or plan. She is endorsing no auditory or visual hallucinations or any specific delusions. There is no observed evidence of psychosis. She demonstrates no tangential thinking loose associations or flight of ideas. She does not appear hypomanic or manic. Insight and judgment grossly intact. During the stay she has demonstrated some protrusion her tongue but none today. She is oriented to person place and date. Impressions 1. Schizophrenia, stimulant use disorder, opioid use disorder Plan: The patient will be discharged from mental health unit today to return to her own residence residing with a friend. She will follow up with [facility] social work will confirm that appointment. She will follow- up with orthopedics as previously scheduled. She is instructed to abstain from any use of alcohol marijuana or any other substance as it may elevate her safety risk and or cause an exacerbation of psychotic symptoms. She was provided and Abilify maintena injection with her last stay is not yet due for another dose this will be given as an outpatient. At this time is no imminent safety risk she is appropriate for transition outpatient care. She is instructed to return to the hospital any acute safety concerns. Patient Condition at Discharge: Stable Plan - Discharge Summary Discharge Rx Participant: No New Discharge Prescriptions: Continue ARIPiprazole IM [Abilify Maintena] 400 mg IM QMONTH ARIPiprazole [Abilify] 10 mg PO DAILY #14 tab Discharge Medication List ARIPiprazole IM [Abilify Maintena] 400 mg IM QMONTH 05/23/18 [History] ARIPiprazole [Abilify] 10 mg PO DAILY #14 tab 05/31/18 [Rx] Follow up Appointment(s)/Referral(s): [facility] [Outside] - 06/03/18 4:00 pm (06-03-18 @ 4:00 with Gabbie Robertson 06-14-18 @ 2:00 with Malu Chavez ) None,Stated [Primary Care Provider] - 1-2 days
== END 2018-05-31 14:49 | disposition home or self-care (01) | DRG 885 ==
LOC: EC 13:47 → 3MHU 16:15
PROVIDERS: ADMIT Psychiatry & Neurology Psychiatry; ATTEND Psychiatry & Neurology Psychiatry
DX: F20.9 Schizophrenia, unspecified (principal); F11.10 Opioid abuse, uncomplicated; F15.10 Other stimulant abuse, uncomplicated; F17.200 Nicotine dependence, unspecified, uncomplicated; Z79.899 Other long term (current) drug therapy; Z91.14 Patient's other noncompliance with medication regimen; Z88.2 Allergy status to sulfonamides; Z91.410 Personal history of adult physical and sexual abuse; S62.92XS Unspecified fracture of left hand, sequela; V19.3XXS Pedal cyclist (driver) (passenger) injured in unspecified nontraffic accident, sequela; M25.532 Pain in left wrist
CPT/HCPCS: 80053; 80306; 81001; 81025; 82075; 82248; 84443; 85025; 96372; 99284

== ENCOUNTER 2018-08-23 13:46 | Inpatient (IN) | payer MEDICARE, MEDICAID ==
[2018-08-23] MEDS ORDERED: LORazepam 1 MG TAB PO STA ×2 (13:50→13:52)
--- NOTE | 2018-08-23 15:15 | ED ---
Psych HPI - General Chief Complaint: Psychiatric Symptoms Stated Complaint: Mental health Time Seen by Provider: 08/23/18 13:46 Source: police, EMS, RN notes reviewed Mode of arrival: EMS - History of Present Illness Initial Comments: This is a 33-year-old female was brought in by police and paramedics for agitation and confusion she was barricaded in her house and would not come out. She was very verbally and physically threatening. She is brought in here on a pickup order. He didn't demonstrate flight of ideas. Thinking that went his cockroaches she was again barricaded in her house that wearing clothing she had a be extricated. She's not been sleeping she's been hallucinating. She denies any alcohol or drugs. She has not been taking her medication per report. MD Complaint: other - Related Data Home Medications Medication Instructions Recorded Confirmed ARIPiprazole [Abilify] 15 mg PO HS 08/23/18 08/23/18 Trihexyphenidyl HCl 2 mg PO TID 08/23/18 08/23/18 cloNIDine HCL [Catapres] 0.1 mg PO HS 08/23/18 08/23/18 Allergies Allergy/AdvReac Type Severity Reaction Status Date / Time Sulfa (Sulfonamide Allergy Rash/Hives Verified 08/23/18 14:20 Antibiotics) Review of Systems ROS Statement: Those systems with pertinent positive or pertinent negative responses have been documented in the HPI. ROS Other: All systems not noted in ROS Statement are negative. Past Medical History Past Medical History: No Reported History, Unable to Obtain Additional Past Medical History / Comment(s): due to acute psychosis History of Any Multi-Drug Resistant Organisms: None Reported Past Surgical History: Unable to Obtain Additional Past Surgical History / Comment(s): xray of the left forearm shows evidence of open reduction and internal fixation of old fracture of the L forearm Past Anesthesia/Blood Transfusion Reactions: No Reported Reaction Past Psychological History: Unable to Obtain Smoking Status: Current every day smoker Past Alcohol Use History: None Reported Past Drug Use History: None Reported - Past Family History Father Family Medical History: No Reported History, Unable to Obtain Additional Family Medical History / Comment(s): Age 52 Mother Family Medical History: No Reported History, Unable to Obtain Additional Family Medical History / Comment(s): Age 52 General Exam - General Exam Comments Initial Comments: This a well-developed asthenic appearing female who is awake alert demonstrating tangential thoughts flight of ideas with pressured speech. Limitations: no limitations General appearance: alert, anxious Head exam: Present: atraumatic, normocephalic, normal inspection Eye exam: Present: normal appearance, PERRL, EOMI. Absent: scleral icterus, conjunctival injection, periorbital swelling ENT exam: Present: mucous membranes dry Neck exam: Present: normal inspection. Absent: tenderness, meningismus, lymphadenopathy Respiratory exam: Present: normal lung sounds bilaterally. Absent: respiratory distress, wheezes, rales, rhonchi, stridor Cardiovascular Exam: Present: normal rhythm, bradycardia, normal heart sounds. Absent: systolic murmur, diastolic murmur, rubs, gallop, clicks GI/Abdominal exam: Present: soft, normal bowel sounds. Absent: distended, tenderness, guarding, rebound, rigid Extremities exam: Present: normal inspection, full ROM, normal capillary refill. Absent: tenderness, pedal edema, joint swelling, calf tenderness Back exam: Present: normal inspection Neurological exam: Present: alert, oriented X3, CN II-XII intact Psychiatric exam: Present: normal affect, normal mood Skin exam: Present: warm, dry, intact, normal color. Absent: rash Course Vital Signs 08/23/18 13:56 Temperature 97.7 F Pulse Rate 50 L Respiratory 22 Rate Blood Pressure 142/93 O2 Sat by Pulse 99 Oximetry Medical Decision Making - Medical Decision Making Hgb require oral medication for sedation. Patient was evaluated by psychiatric service and will be admitted for inpatient treatment of schizophrenia and acute psychosis. Disposition Clinical Impression: Schizophrenia, Acute exacerbation of psychosis Disposition: TRANSFER TO PSYCH HOSP/UNIT Condition: Stable Referrals: None,Stated [Primary Care Provider] - 1-2 days
[2018-08-23 15:32] LABS: Amphetamine Screen,Urine Detected (NotDetected); Barbiturate Screen,Urine Not Detected (NotDetected); Benzodiazepines Screen,Urine Not Detected (NotDetected); Cocaine Screen,Urine Not Detected (NotDetected); Methadone Screen, Urine Not Detected (NotDetected); Opiate Screen,Urine Not Detected (NotDetected); Oxycodone Screen, Urine Not Detected (NotDetected); Phencyclidine Screen,Urine Not Detected (NotDetected); Tricyclic Antidepressant,Urine Not Detected (NotDetected); Urn Cannabinoid Scrn Not Detected (NotDetected)
[2018-08-23] MEDS ORDERED: MAGNESIUM HYDROXIDE 2,400 MG/10 ML CUP PO PRN (15:44)
[2018-08-23] MEDS ORDERED: ZIPRASIDONE 20 MG VIAL IM PRN (15:44)
[2018-08-23] MEDS ORDERED: MAG HYDROX/AL HYDROX/SIMETH 30 ML CUP PO PRN (15:44)
[2018-08-23] MEDS ORDERED: ACETAMINOPHEN TAB 325 MG TAB PO PRN (15:44)
[2018-08-23] MEDS ORDERED: LORazepam 2 MG/ML INJ IM PRN (15:50)
[2018-08-23] MEDS: TRIHEXYPHENIDYL 2 MG TAB PO SCH ×2 (16:01→21:12)
[2018-08-23] MEDS: cloNIDine HCL 0.1 MG TAB PO SCH ×2 (21:12→21:54)
[2018-08-23] MEDS: ARIPiprazole 15 MG TAB PO SCH (21:12)
[2018-08-24] MEDS: TRIHEXYPHENIDYL 2 MG TAB PO SCH ×3 (07:56→21:07)
[2018-08-24 09:16] LABS: Basophils # (A) 0.1 k/uL (0-0.2); Basophils % (A) 1 %; Eosinophils # (A) 0.3 k/uL (0-0.7); Eosinophils % (A) 4 %; HCT 38.8 % (34.0-46.0); HGB 12.2 gm/dL (11.4-16.0); Lymphocytes # (A) 1.5 k/uL (1.0-4.8); Lymphocytes % (A) 23 %; MCH 29.4 pg (25.0-35.0); MCHC 31.6 g/dL (31.0-37.0); Mean Platelet Volume 6.2; Monocytes # (A) 0.4 k/uL (0-1.0); Monocytes % (A) 5 %; Neutrophils # (A) 4.3 k/uL (1.3-7.7); Neutrophils % (A) 65 %; Platelet Count 453 k/uL (150-450); RBC 4.17 m/uL (3.80-5.40); RDW 12.7 % (11.5-15.5); WBC 6.6 k/uL (3.8-10.6)
[2018-08-24 09:23] LABS: ALT 45 U/L (9-52); AST 35 U/L (14-36); Alkaline Phosphatase 92 U/L (38-126); Anion Gap 10 mmol/L; Bilirubin, Delta 0.4 mg/dL (0.0-0.2); Bilirubin,Unconjugated 0.1 mg/dL (0.0-1.1); Blood Urea Nitrogen 15 mg/dL (7-17); Calcium 9.4 mg/dL (8.4-10.2); Carbon Dioxide 22 mmol/L (22-30); Chloride 109 mmol/L (98-107); Cholesterol 160 mg/dL (<200); Glucose 102 mg/dL (74-99); HDL Cholesterol 63 mg/dL (40-60); LDL Cholesterol,Calculated 88 mg/dL (0-99); Potassium 4.2 mmol/L (3.5-5.1); Sodium 141 mmol/L (137-145); Total Bilirubin 0.5 mg/dL (0.2-1.3); Total Protein 6.7 g/dL (6.3-8.2); Triglycerides 43 mg/dL (<150)
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
[2018-08-24 17:53] LABS: Hemoglobin A1C 5.2 % (4.0-6.0)
[2018-08-24] MEDS: ARIPiprazole 15 MG TAB PO SCH (21:07)
[2018-08-24] MEDS: cloNIDine HCL 0.1 MG TAB PO SCH (21:07)
--- NOTE | 2018-08-24 23:44 | P.MDCNMH ---
History of Present Illness H&P Date: 08/24/18 Chief Complaint: Psychosis Patient is a 33-year-old female with a known history of schizophrenia was brought to the hospital by police and paramedics for agitation and confusion. She was barricaded in her house and would not come out. Patient was verbally and physically threatening. Patient was brought to the hospital by police. Apparently patient has not been sleeping and was having hallucinations, thinking about cockroaches went over again. Denied any alcohol abuse. UDS is positive for amphetamines. Patient does smoke on daily basis. Patient has not been taking her medications. Currently denied any complaints of chest pain or shortness of breath. No nausea vomiting or abdominal pain or diarrhea. No fever no chills. No cough or sputum production. No headache or dizziness or lightheadedness. Review of Systems Constitutional: Patient denies any fever or chills . No generalized weakness or weight loss. Abdomen: Patient denied nausea vomiting and diarrhea and abdominal pain. Cardiovascular: Patient denies any chest pain or short of breath no palpitations. Respiratory: patient denied any cough is from production. No shortness of breath Neurologic: Patient denied any numbness or tingling headache. Musculoskeletal: Patient denies any complaints of joint swelling or deformity. Skin: Negative Psychiatric: Anxious and agitated Endocrine: No heat or cold intolerance. No recent weight gain. Genitourinary: No dysuria or hematuria. All other 14 point ROS negative except the above Past Medical History Past Medical History: No Reported History, Unable to Obtain Additional Past Medical History / Comment(s): due to acute psychosis History of Any Multi-Drug Resistant Organisms: None Reported Past Surgical History: Unable to Obtain Additional Past Surgical History / Comment(s): xray of the left forearm shows evidence of open reduction and internal fixation of old fracture of the L forearm Past Anesthesia/Blood Transfusion Reactions: No Reported Reaction Past Psychological History: Unable to Obtain Smoking Status: Current every day smoker Past Alcohol Use History: None Reported Past Drug Use History: None Reported - Past Family History Father Family Medical History: No Reported History, Unable to Obtain Additional Family Medical History / Comment(s): Age 52 Mother Family Medical History: No Reported History, Unable to Obtain Additional Family Medical History / Comment(s): Age 52 Medications and Allergies Home Medications Medication Instructions Recorded Confirmed Type ARIPiprazole [Abilify] 15 mg PO HS 08/23/18 08/23/18 History Trihexyphenidyl HCl 2 mg PO TID 08/23/18 08/23/18 History cloNIDine HCL [Catapres] 0.1 mg PO HS 08/23/18 08/23/18 History Allergies Allergy/AdvReac Type Severity Reaction Status Date / Time Sulfa (Sulfonamide Allergy Rash/Hives Verified 08/23/18 14:20 Antibiotics) Physical Exam Vitals: Vital Signs Temp Pulse Pulse Resp BP BP Pulse Ox 08/24/18 06:20 73 12 110/65 08/23/18 21:10 101/61 08/23/18 15:55 90 20 99/65 08/23/18 13:56 97.7 F 50 L 22 142/93 99 PHYSICAL EXAMINATION: Patient is lying in the bed comfortably, no acute distress, awake alert and oriented.. HEENT: Normocephalic. Neck is supple. Pupils reactive. Nostrils clear. Oral cavity is moist. Ears reveal no drainage. Neck reveals no JVD, carotid bruits, or thyromegaly. CHEST EXAMINATION: Trachea is central. Symmetrical expansion. Lung epstein clear to auscultation and percussion. CARDIAC: Normal S1, S2 with no gallops. No murmurs ABDOMEN: Soft. Bowel sounds normal. No organomegaly. No abdominal bruits. Extremities: reveal no edema. No clubbing or cyanosis Neurologically awake, alert, oriented x3 with well-coordinated movements. No focal deficits noted Skin: No rash or skin lesions. Psychiatric: Coperative. denied any suicidal ideation. Seems anxious. Musculoskeletal: No joint swelling or deformity. Normal range of motion. Cranial Nerve Examination - Cranial Nerves Cranial Nerve I- Olfactory: Intact Cranial Nerve II- Optic: Intact Cranial Nerve III- Oculomotor: Intact Cranial Nerve IV- Trochlear: Intact Cranial Nerve V- Trigeminal: Intact Cranial Nerve - Abducens: Intact Cranial Nerve VII- Facial: Intact Cranial Nerve VIII- Auditory: Intact Cranial Nerve IX- Glossopharyngeal: Intact Cranial Nerve X- Vagus: Intact Cranial Nerve XI- Accessory: Intact Cranial Nerve XII- Hypoglossal: Intact Results CBC & Chem 7: 08/24/18 08:41 08/24/18 08:41 Labs: Abnormal Lab Results - Last 24 Hours (Table) 11/16/18 11/17/18 11/17/18 Range/Units 14:53 08:41 08:41 Plt Count 453 H (150-450) k/uL Chloride 109 H (98-107) mmol/L Glucose 102 H (74-99) mg/dL Delta Bilirubin 0.4 H (0.0-0.2) mg/dL HDL Cholesterol 63 H (40-60) mg/dL Ur Amphetamines Screen Detected H (NotDetected) Assessment and Plan Assessment: Acute psychosis History of schizophrenia Hypertension controlled Noncompliance medications Mild thrombocytosis Early ambulation for DVT prophylaxis Smoking cessation has been counseled extensively. Plan: Patient be continued on current psychiatric medications. Continue the current management and follow up closely. Further recommendations based on the clinical course. Thank you for your consult
[2018-08-25] MEDS: TRIHEXYPHENIDYL 2 MG TAB PO SCH ×3 (08:36→20:46)
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
[2018-08-25] MEDS: cloNIDine HCL 0.1 MG TAB PO SCH (20:46)
[2018-08-25] MEDS: ARIPiprazole 15 MG TAB PO SCH (20:46)
[2018-08-26] MEDS: TRIHEXYPHENIDYL 2 MG TAB PO SCH (08:08)
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
[2018-08-26] MEDS: BENZTROPINE MESYLATE 1 MG TAB PO SCH (20:25)
[2018-08-26] MEDS: ARIPiprazole 15 MG TAB PO SCH (20:25)
[2018-08-26] MEDS: cloNIDine HCL 0.1 MG TAB PO SCH (20:25)
[2018-08-27] MEDS: BENZTROPINE MESYLATE 1 MG TAB PO SCH ×2 (08:12→20:42)
--- NOTE | 2018-08-27 13:21 | P.PN ---
Subjective Progress Note Date: 08/27/18 Principal diagnosis: Schizophrenia, stimulant use disorder I want patient's rooms morning and had wake her up. She was easily arousable and oriented person place and time. She states that depression is 4 out of 10 anxiety 4 out of 10. She has no auditory or visual hallucinations. Prior to coming in the hospital if she was seeing cockroaches on the floor which didn't exist. I asked her to get up and be part of the day since he slept most of yesterday and encouraged her to groups and activities. Objective - Vital Signs Vital signs: Vital Signs Temp 98.4 F 08/27/18 06:28 Pulse 60 08/27/18 06:28 Resp 20 08/27/18 06:28 BP 96/59 08/27/18 06:28 Pulse Ox 99 08/23/18 13:56 Intake & Output 08/26/18 08/27/18 08/27/18 18:59 06:59 18:59 Weight 52.6 kg - Labs CBC & Chem 7: 08/24/18 08:41 08/24/18 08:41 Assessment and Plan (1) Acute exacerbation of psychosis Narrative/Plan: This is a 33-year-old female was brought in by police and paramedics for agitation and confusion she was barricaded in her house and would not come out. She was very verbally and physically threatening. She is brought in here on a pickup order. He didn't demonstrate flight of ideas. Thinking that went his cockroaches she was again barricaded in her house that wearing clothing she had a be extricated. She's not been sleeping she's been hallucinating. She denies any alcohol or drugs. She has not been taking her medication per report. Musculoskeletal Abnormal/Involuntary Movements: [none Strength: [greater than antigravity (greater than/equal to 3/5) in all extremities Muscle Tone: [no impairment Gait: [grossly normal Station: [grossly normal Mental Status Examination - General Appearance: [ disheveled bizarre, appears younger than stated age] Speech/Language: [spontaneous, expressive,sof Attitude/Behavior: [cooperative Mood: [depressed, anxious, irritable, fearful, hopelessness Affect: [lively, incongruent, labile] Orientation: [time, person, place situation] Thought Content: [ delusions Risk Factors: [She is not suicidal (ideations, plan), and/or Homicidal ( ideations, plan), other] Perception: hallucinations (auditory Thought Processes: [concrete, circumstantial, tangential, other] Concentration/Attention Span: [impaired] [Per observation and interview with the patient] Recent Memory: [ impaired] [0, 1, 2 or 3 out of 3 in 3 minutes] Remote Memory: [wnl] [past events, as related history] Intelligence: [below average] [based on history, based on vocabulary, syntax, grammar, and content] Judgement: [ poor] [per patient's behavior/history of present illness] Insight: [poor] [understanding severity of illness/history of present illness] Admitting Diagnosis: [Schizophrenia, stimulant use disorder] Patient Strengths - Housing stability: [x] Able to vocalize needs: [x] Patient Limitations: [medication, non-compliance, pathological/unsupported environment Initial Plan of Care: [To be admitted to the psychiatric unit on an involuntary basis since she's on demand hearing and required to receive psychiatric treatment. She had recently been at another hospital where she was mandated for treatment. Her last hospitalization here was formal voluntary but she is now been placed on 90 day order and she is not been compliant with her medications or her appointments. She'll be evaluated by medicine, psychiatry, nursing staff, social work, recreational therapy and multidisciplinary team approach Sunday through Sunday and adjustment of her medications until she is stable. She was placed on the medicines that she was restless but taking outpatient includes Abilify.] Estimated Length of Stay: [3 days] Initial Discharge Plan: [facility], [facility] Prognosis: [good, fair, guarded] [ Current Visit: Yes Status: Acute Priority: High Code(s): F29 - UNSP PSYCHOSIS NOT DUE TO A SUBSTANCE OR KNOWN PHYSIOL COND SNOMED Code(s): 43199435 (2) Schizophrenia Current Visit: Yes Status: Acute Priority: High Code(s): F20.9 - SCHIZOPHRENIA, UNSPECIFIED SNOMED Code(s): 54768168 Plan: Continue her Artane 3 times a day, Abilify 15 mg by mouth daily. Encourage her to go to groups and activities and stay up during the daytime. She will continue on clonidine for withdrawal from the amphetamines.Stop Artane and change to Cogentin 1 mg po bid. Time with Patient: Less than 30
[2018-08-27] MEDS: cloNIDine HCL 0.1 MG TAB PO SCH (20:42)
[2018-08-27] MEDS: ARIPiprazole 15 MG TAB PO SCH (20:42)
[2018-08-28] MEDS: BENZTROPINE MESYLATE 1 MG TAB PO SCH ×2 (07:41→20:17)
--- NOTE | 2018-08-28 11:16 | P.PN ---
Subjective Progress Note Date: 08/28/18 Principal diagnosis: Schizophrenia, stimulant use disorder versus schizoaffective bipolar type I want patient's rooms morning and had wake her up. She was easily arousable and oriented person place and time. She states that depression is 4 out of 10 anxiety 4 out of 10. She has no auditory or visual hallucinations. Prior to coming in the hospital if she was seeing cockroaches on the floor which didn't exist. I asked her to get up and be part of the day since he slept most of yesterday and encouraged her to groups and activities. She does to admit to having racing thoughts and periods of paranoia when she listens to the news. She tends to have rapid cycling moments unrelated to the amphetamines. We discussed in detail about on Sunday using Abilify maintana and use of Depakote at bedtime with her side effect medication Cogentin twice a day. She is agreeable to the treatment plan. Objective - Vital Signs Vital signs: Vital Signs Temp 98.4 F 08/27/18 06:28 Pulse 60 08/27/18 06:28 Resp 20 08/27/18 06:28 BP 96/59 08/27/18 06:28 Pulse Ox 99 08/23/18 13:56 Intake & Output 08/27/18 08/28/18 08/28/18 18:59 06:59 18:59 Weight 52.6 kg - Labs CBC & Chem 7: 08/24/18 08:41 08/24/18 08:41 Assessment and Plan (1) Acute exacerbation of psychosis Narrative/Plan: This is a 33-year-old female was brought in by police and paramedics for agitation and confusion she was barricaded in her house and would not come out. She was very verbally and physically threatening. She is brought in here on a pickup order. He didn't demonstrate flight of ideas. Thinking that went his cockroaches she was again barricaded in her house that wearing clothing she had a be extricated. She's not been sleeping she's been hallucinating. She denies any alcohol or drugs. She has not been taking her medication per report. Musculoskeletal Abnormal/Involuntary Movements: [none Strength: [greater than antigravity (greater than/equal to 3/5) in all extremities Muscle Tone: [no impairment Gait: [grossly normal Station: [grossly normal Mental Status Examination - General Appearance: [ disheveled bizarre, appears younger than stated age] Speech/Language: [spontaneous, expressive,sof Attitude/Behavior: [cooperative Mood: [depressed, anxious, irritable, fearful, hopelessness Affect: [lively, incongruent, labile] Orientation: [time, person, place situation] Thought Content: [ delusions Risk Factors: [She is not suicidal (ideations, plan), and/or Homicidal ( ideations, plan), other] Perception: hallucinations (auditory Thought Processes: [concrete, circumstantial, tangential, other] Concentration/Attention Span: [impaired] [Per observation and interview with the patient] Recent Memory: [ impaired] [0, 1, 2 or 3 out of 3 in 3 minutes] Remote Memory: [wnl] [past events, as related history] Intelligence: [below average] [based on history, based on vocabulary, syntax, grammar, and content] Judgement: [ poor] [per patient's behavior/history of present illness] Insight: [poor] [understanding severity of illness/history of present illness] Admitting Diagnosis: [Schizophrenia, stimulant use disorder versus schizoaffective bipolar type] Patient Limitations: [medication, non-compliance, pathological/unsupported environment Initial Plan of Care: [To be admitted to the psychiatric unit on an involuntary basis since she's on demand hearing and required to receive psychiatric treatment. She had recently been at another hospital where she was mandated for treatment. Her last hospitalization here was formal voluntary but she is now been placed on 90 day order and she is not been compliant with her medications or her appointments. She'll be evaluated by medicine, psychiatry, nursing staff, social work, recreational therapy and multidisciplinary team approach Sunday through Sunday and adjustment of her medications until she is stable. She was placed on the medicines that she was restless but taking outpatient includes Abilify.] Estimated Length of Stay: [3 days] Initial Discharge Plan: [[place], [facility], referred to therapist Prognosis: [good] [ Current Visit: Yes Status: Acute Priority: High Code(s): F29 - UNSP PSYCHOSIS NOT DUE TO A SUBSTANCE OR KNOWN PHYSIOL COND SNOMED Code(s): 65003581 (2) Schizophrenia Current Visit: Yes Status: Acute Priority: High Code(s): F20.9 - SCHIZOPHRENIA, UNSPECIFIED SNOMED Code(s): 41175023 Plan: Continue her Artane 3 times a day, Abilify 20 mg by mouth daily. Encourage her to go to groups and activities and stay up during the daytime. She will continue on clonidine for withdrawal from the amphetamines.Stop Artane and change to Cogentin 1 mg po bid. we'll also add Depakote 250 mg ER at bedtime for her racing thoughts and mood instability. Time with Patient: Less than 30
[2018-08-28] MEDS: LORazepam 1 MG TAB PO PRN (16:38)
[2018-08-28] MEDS: DIVALPROEX ER 250 MG TAB.ER.24H PO SCH (20:17)
[2018-08-28] MEDS: cloNIDine HCL 0.1 MG TAB PO SCH (20:18)
[2018-08-29] MEDS: BENZTROPINE MESYLATE 1 MG TAB PO SCH ×2 (07:53→20:34)
--- NOTE | 2018-08-29 13:56 | P.PN ---
Subjective Progress Note Date: 08/29/18 Principal diagnosis: Schizophrenia Patient seen and interviewed in detail. Reports feeling some what better. She has been medications complaint and tolerating them well. Reports feeling paranoid at times, but denies hearinga ny voices or seeing things. Eating and sleeping well. Denies any suicidal or homicidal ideation. MSE : AAOx4. Fair grooming andeye contact. Speech soft tone. Mood anxious with congruent affect. Denies any suicidal or homicidal ideation. Paranoid delusional. Inisght and judgement improving gradually. Plan : Will use SOLIS atypical antipsychotics eventually for better complaince. Castro while will keep her on current medications. Objective - Vital Signs Vital signs: Vital Signs Temp 97.5 F L 08/29/18 06:33 Pulse 69 08/29/18 06:33 Resp 16 08/29/18 06:33 BP 109/55 08/29/18 06:33 Pulse Ox 99 08/23/18 13:56 - Labs CBC & Chem 7: 08/24/18 08:41 08/24/18 08:41
[2018-08-29] MEDS: LORazepam 1 MG TAB PO PRN (15:50)
[2018-08-29] MEDS: cloNIDine HCL 0.1 MG TAB PO SCH (20:34)
[2018-08-29] MEDS: DIVALPROEX ER 250 MG TAB.ER.24H PO SCH (20:34)
[2018-08-30] MEDS: BENZTROPINE MESYLATE 1 MG TAB PO SCH ×2 (08:04→20:45)
[2018-08-30] MEDS: LORazepam 1 MG TAB PO PRN (16:34)
--- NOTE | 2018-08-30 17:47 | P.PN ---
Subjective Progress Note Date: 08/30/18 Principal diagnosis: Schizophrenia Schizophrenia Patient seen and interviewed in detail. Reports feeling some what better. She has been medications complaint and tolerating them well. Reports feeling paranoid at times, but denies hearinga ny voices or seeing things. Eating and sleeping well. Denies any suicidal or homicidal ideation. MSE : AAOx4. Fair grooming andeye contact. Speech soft tone. Mood anxious with congruent affect. Denies any suicidal or homicidal ideation. Paranoid delusional. Inisght and judgement improving gradually. Plan : Will use SOLIS atypical antipsychotics eventually for better complaince. Castro while will keep her on current medications. Objective - Vital Signs Vital signs: Vital Signs Temp 97.8 F 08/30/18 06:45 Pulse 63 08/30/18 06:45 Resp 16 08/30/18 06:45 BP 99/51 08/30/18 06:45 Pulse Ox 99 08/23/18 13:56 - Labs CBC & Chem 7: 08/24/18 08:41 08/24/18 08:41
[2018-08-30] MEDS: cloNIDine HCL 0.1 MG TAB PO SCH (20:45)
[2018-08-30] MEDS: DIVALPROEX ER 250 MG TAB.ER.24H PO SCH (20:45)
[2018-08-31] MEDS: BENZTROPINE MESYLATE 1 MG TAB PO SCH ×2 (08:36→20:07)
--- NOTE | 2018-08-31 11:21 | P.PN ---
Subjective Progress Note Date: 08/31/18 Principal diagnosis: Schizophrenia Schizophrenia Patient seen and interviewed in detail. Reports feeling some what better. She has been medications complaint and tolerating them well. Reports feeling paranoid at times, but denies hearing any voices or seeing things. Eating and sleeping well. Denies any suicidal or homicidal ideation. MSE : AAOx4. Fair grooming and eye contact. Speech soft tone. Mood anxious with congruent affect. Denies any suicidal or homicidal ideation. Paranoid delusional. Insight and judgment improving gradually. Plan : Will use SOLIS atypical antipsychotics eventually for better compliance. Castro while will keep her on current medications. Objective - Vital Signs Vital signs: Vital Signs Temp 97.8 F 08/30/18 06:45 Pulse 63 08/30/18 06:45 Resp 16 08/30/18 06:45 BP 99/51 08/30/18 06:45 Pulse Ox 99 08/23/18 13:56 - Labs CBC & Chem 7: 08/24/18 08:41 08/24/18 08:41
[2018-08-31] MEDS: cloNIDine HCL 0.1 MG TAB PO SCH (20:07)
[2018-08-31] MEDS: DIVALPROEX ER 250 MG TAB.ER.24H PO SCH (20:07)
[2018-09-01] MEDS: BENZTROPINE MESYLATE 1 MG TAB PO SCH ×2 (08:47→20:20)
[2018-09-01] MEDS: LORazepam 1 MG TAB PO PRN (16:37)
--- NOTE | 2018-09-01 18:23 | P.PN ---
Subjective Progress Note Date: 09/01/18 Principal diagnosis: Schizophrenia Schizophrenia Patient seen and interviewed in detail. Reports feeling some what better. She has been medications complaint and tolerating them well. Reports feeling paranoid at times, but denies hearing any voices or seeing things. Eating and sleeping well. Denies any suicidal or homicidal ideation. MSE : AAOx4. Fair grooming and eye contact. Speech soft tone. Mood anxious with congruent affect. Denies any suicidal or homicidal ideation. Paranoid delusional. Insight and judgment improving gradually. Plan : Will use SOLIS atypical antipsychotics eventually for better compliance. Castro while will keep her on current medications. Objective - Vital Signs Vital signs: Vital Signs Temp 97.7 F 09/01/18 06:41 Pulse 67 09/01/18 06:41 Resp 18 09/01/18 06:41 BP 98/53 09/01/18 06:41 Pulse Ox 99 08/23/18 13:56 Intake & Output 08/31/18 09/01/18 09/01/18 18:59 06:59 18:59 Weight 54.3 kg - Labs CBC & Chem 7: 08/24/18 08:41 08/24/18 08:41
[2018-09-01] MEDS: cloNIDine HCL 0.1 MG TAB PO SCH (20:20)
[2018-09-01] MEDS: DIVALPROEX ER 250 MG TAB.ER.24H PO SCH (20:20)
[2018-09-02] MEDS: BENZTROPINE MESYLATE 1 MG TAB PO SCH ×2 (07:54→20:07)
--- NOTE | 2018-09-02 11:54 | P.PN ---
Subjective Progress Note Date: 09/02/18 Principal diagnosis: Schizophrenia, stimulant use disorder versus schizoaffective bipolar type I want patient's rooms morning and had wake her up. She was easily arousable and oriented person place and time. She states that depression is 4 out of 10 anxiety 4 out of 10. She has no auditory or visual hallucinations. Prior to coming in the hospital if she was seeing cockroaches on the floor which didn't exist. I asked her to get up and be part of the day since he slept most of yesterday and encouraged her to groups and activities. She does to admit to having racing thoughts and periods of paranoia when she listens to the news. She tends to have rapid cycling moments unrelated to the amphetamines. We discussed in detail about on Sunday using Abilify maintana and use of Depakote at bedtime with her side effect medication Cogentin twice a day. She is agreeable to the treatment plan. X I hate it I just want to be normal I HATE IT WHEN I GET OCCUPIED BY SPIRITS Objective - Vital Signs Vital signs: Vital Signs Temp 97.9 F 09/02/18 06:36 Pulse 64 09/02/18 06:36 Resp 16 09/02/18 06:36 BP 95/62 09/02/18 06:36 Pulse Ox 99 08/23/18 13:56 Intake & Output 09/01/18 09/02/18 09/02/18 18:59 06:59 18:59 Weight 54.3 kg - Labs CBC & Chem 7: 08/24/18 08:41 08/24/18 08:41 Assessment and Plan (1) Acute exacerbation of psychosis Narrative/Plan: This is a 33-year-old female was brought in by police and paramedics for agitation and confusion she was barricaded in her house and would not come out. She was very verbally and physically threatening. She is brought in here on a pickup order. He didn't demonstrate flight of ideas. Thinking that went his cockroaches she was again barricaded in her house that wearing clothing she had a be extricated. She's not been sleeping she's been hallucinating. She denies any alcohol or drugs. She has not been taking her medication per report. Mental Status Examination - General Appearance: [ disheveled bizarre, appears younger than stated age] Speech/Language: [spontaneous, expressive,soft Attitude/Behavior: [cooperative Mood: [depressed, anxious, irritable, fearful, hopelessness Affect: [lively, incongruent, labile] Orientation: [time, person, place situation] Thought Content: [ delusions Risk Factors: [She is not suicidal (ideations, plan), and/or Homicidal ( ideations, plan), other] Perception: hallucinations (auditory Thought Processes: [concrete, circumstantial, tangential, other] Concentration/Attention Span: [impaired] [Per observation and interview with the patient] Recent Memory: [ impaired] [0, 1, 2 or 3 out of 3 in 3 minutes] Remote Memory: [wnl] [past events, as related history] Intelligence: [below average] [based on history, based on vocabulary, syntax, grammar, and content] Judgement: [ poor] [per patient's behavior/history of present illness] Insight: [poor] [understanding severity of illness/history of present illness] Admitting Diagnosis: [Schizophrenia, stimulant use disorder versus schizoaffective bipolar type] Patient Limitations: [medication, non-compliance, pathological/unsupported environment Initial Plan of Care: [To be admitted to the psychiatric unit on an involuntary basis since she's on demand hearing and required to receive psychiatric treatment. She had recently been at another hospital where she was mandated for treatment. Her last hospitalization here was formal voluntary but she is now been placed on 90 day order and she is not been compliant with her medications or her appointments. She'll be evaluated by medicine, psychiatry, nursing staff, social work, recreational therapy and multidisciplinary team approach Sunday through Sunday and adjustment of her medications until she is stable. She was placed on the medicines that she was restless but taking outpatient includes Abilify.] Estimated Length of Stay: [3 days] Initial Discharge Plan: [home, [facility], referred to therapist Prognosis: [good] [ Current Visit: Yes Status: Acute Priority: High Code(s): F29 - UNSP PSYCHOSIS NOT DUE TO A SUBSTANCE OR KNOWN PHYSIOL COND SNOMED Code(s): 51773108 (2) Schizophrenia Current Visit: Yes Status: Acute Priority: High Code(s): F20.9 - SCHIZOPHRENIA, UNSPECIFIED SNOMED Code(s): 02274172 Plan: Continue her Artane 3 times a day, Abilify 10 mg by mouth daily. Encourage her to go to groups and activities and stay up during the daytime. She will continue on clonidine for withdrawal from the amphetamines.Stop Artane and change to Cogentin 1 mg po bid. we'll also add Depakote 500 mg ER at bedtime for her racing thoughts and mood instability. Today she will get the Abilify intramuscular maintenna of 300 mg.
[2018-09-02] MEDS ORDERED: ARIPiprazole IM 400 MG VIAL (NO COST) IM ONE (12:00)
[2018-09-02] MEDS: LORazepam 1 MG TAB PO PRN (16:01)
[2018-09-02] MEDS: ARIPiprazole 10 MG TAB PO SCH (20:07)
[2018-09-02] MEDS: cloNIDine HCL 0.1 MG TAB PO SCH (20:07)
[2018-09-02] MEDS: DIVALPROEX ER 500 MG TAB.ER.24H PO SCH (20:07)
[2018-09-03] MEDS: BENZTROPINE MESYLATE 1 MG TAB PO SCH ×2 (08:25→20:12)
--- NOTE | 2018-09-03 13:26 | P.PN ---
Subjective Progress Note Date: 09/03/18 Principal diagnosis: Schizophrenia, stimulant use disorder versus schizoaffective bipolar type I want patient's rooms morning and had wake her up. She was easily arousable and oriented person place and time. She states that depression is 4 out of 10 anxiety 4 out of 10. She has no auditory or visual hallucinations. Prior to coming in the hospital if she was seeing cockroaches on the floor which didn't exist. I asked her to get up and be part of the day since he slept most of yesterday and encouraged her to groups and activities. She does to admit to having racing thoughts and periods of paranoia when she listens to the news. She tends to have rapid cycling moments unrelated to the amphetamines. We discussed in detail about on Sunday using Abilify maintana and use of Depakote at bedtime with her side effect medication Cogentin twice a day. She is agreeable to the treatment plan. X I feel that the medications are working. Decreasing racing thoughts and no SI/ HI. No auditory or visual. Objective - Vital Signs Vital signs: Vital Signs Temp 98 F 09/03/18 06:33 Pulse 81 09/03/18 06:33 Resp 18 09/03/18 06:33 BP 97/53 09/03/18 06:33 Pulse Ox 99 08/23/18 13:56 - Labs CBC & Chem 7: 08/24/18 08:41 08/24/18 08:41 Assessment and Plan (1) Acute exacerbation of psychosis Narrative/Plan: This is a 33-year-old female was brought in by police and paramedics for agitation and confusion she was barricaded in her house and would not come out. She was very verbally and physically threatening. She is brought in here on a pickup order. He didn't demonstrate flight of ideas. Thinking that went his cockroaches she was again barricaded in her house that wearing clothing she had a be extricated. She's not been sleeping she's been hallucinating. She denies any alcohol or drugs. She has not been taking her medication per report. Mental Status Examination - General Appearance: [ disheveled bizarre, appears younger than stated age] Speech/Language: [spontaneous, expressive,soft Attitude/Behavior: [cooperative Mood: [depressed, anxious, irritable, fearful, hopelessness Affect: [lively, incongruent, labile] Orientation: [time, person, place situation] Thought Content: [ delusions Risk Factors: [She is not suicidal (ideations, plan), and/or Homicidal ( ideations, plan), other] Perception: hallucinations (auditory Thought Processes: [concrete, circumstantial, tangential, other] Concentration/Attention Span: [impaired] [Per observation and interview with the patient] Recent Memory: [ impaired] [ 2 out of 3 in 3 minutes] Remote Memory: [wnl] [past events, as related history] Intelligence: [below average] [based on history, based on vocabulary, syntax, grammar, and content] Judgement: [ poor] [per patient's behavior/history of present illness] Insight: [poor] [understanding severity of illness/history of present illness] Admitting Diagnosis: [Schizophrenia, stimulant use disorder versus schizoaffective bipolar type] Patient Limitations: [medication, non-compliance, pathological/unsupported environment Initial Plan of Care: [To be admitted to the psychiatric unit on an involuntary basis since she's on demand hearing and required to receive psychiatric treatment. She had recently been at another hospital where she was mandated for treatment. Her last hospitalization here was formal voluntary but she is now been placed on 90 day order and she is not been compliant with her medications or her appointments. She'll be evaluated by medicine, psychiatry, nursing staff, social work, recreational therapy and multidisciplinary team approach Sunday through Sunday and adjustment of her medications until she is stable. She was placed on the medicines that she was restless but taking outpatient includes Abilify.] Estimated Length of Stay: [1 days] Initial Discharge Plan: [[place], [facility], referred to therapist Prognosis: [good] [ Current Visit: Yes Status: Acute Priority: Low Code(s): F29 - UNSP PSYCHOSIS NOT DUE TO A SUBSTANCE OR KNOWN PHYSIOL COND SNOMED Code(s): 77146919 (2) Schizophrenia Current Visit: Yes Status: Acute Priority: Low Code(s): F20.9 - SCHIZOPHRENIA, UNSPECIFIED SNOMED Code(s): 78054278 Plan: Continue her Artane 3 times a day, Abilify 10 mg by mouth daily. Encourage her to go to groups and activities and stay up during the daytime. She will continue on clonidine for withdrawal from the amphetamines. to Cogentin 2 mg po bid. we'll also add Depakote 500 mg ER at bedtime for her racing thoughts and mood instability. she will got the Abilify intramuscular maintenna of 300 mg.Depakote level Time with Patient: Less than 30
[2018-09-03 14:07] VITALS: BMI 18.7
[2018-09-03] MEDS: LORazepam 1 MG TAB PO PRN (16:47)
[2018-09-03] MEDS: cloNIDine HCL 0.1 MG TAB PO SCH (20:12)
[2018-09-03] MEDS: DIVALPROEX ER 500 MG TAB.ER.24H PO SCH (20:12)
[2018-09-03] MEDS: ARIPiprazole 10 MG TAB PO SCH (20:12)
[2018-09-04] MEDS: BENZTROPINE MESYLATE 1 MG TAB PO SCH ×2 (08:20→20:56)
--- NOTE | 2018-09-04 09:29 | P.PN ---
Subjective Progress Note Date: 09/04/18 Principal diagnosis: Schizophrenia, stimulant use disorder versus schizoaffective bipolar type I want patient's rooms morning and had wake her up. She was easily arousable and oriented person place and time. She states that depression is 4 out of 10 anxiety 4 out of 10. She has no auditory or visual hallucinations. Prior to coming in the hospital if she was seeing cockroaches on the floor which didn't exist. I asked her to get up and be part of the day since he slept most of yesterday and encouraged her to groups and activities. She does to admit to having racing thoughts and periods of paranoia when she listens to the news. She tends to have rapid cycling moments unrelated to the amphetamines. We discussed in detail about on Sunday using Abilify maintana and use of Depakote at bedtime with her side effect medication Cogentin twice a day. She is agreeable to the treatment plan. I feel that the medications are working. Decreasing racing thoughts and no SI/ HI. No auditory or visual. Objective - Vital Signs Vital signs: Vital Signs Temp 98.1 F 09/04/18 06:20 Pulse 73 09/04/18 06:20 Resp 12 09/04/18 06:20 BP 92/55 09/04/18 06:20 Pulse Ox 99 08/23/18 13:56 Intake & Output 09/03/18 09/04/18 09/04/18 18:59 06:59 18:59 Weight 54.3 kg - Labs CBC & Chem 7: 08/24/18 08:41 08/24/18 08:41 Assessment and Plan (1) Acute exacerbation of psychosis Narrative/Plan: This is a 33-year-old female was brought in by police and paramedics for agitation and confusion she was barricaded in her house and would not come out. She was very verbally and physically threatening. She is brought in here on a pickup order. He didn't demonstrate flight of ideas. Thinking that went his cockroaches she was again barricaded in her house that wearing clothing she had a be extricated. She's not been sleeping she's been hallucinating. She denies any alcohol or drugs. She has not been taking her medication per report. Mental Status Examination - General Appearance: [ disheveled bizarre, appears younger than stated age] Speech/Language: [spontaneous, expressive,soft Attitude/Behavior: [cooperative Mood: [depressed, anxious, irritable, fearful, hopelessness Affect: [lively, incongruent, labile] Orientation: [time, person, place situation] Thought Content: [ delusions Risk Factors: [She is not suicidal (ideations, plan), and/or Homicidal ( ideations, plan), other] Perception: hallucinations (auditory Thought Processes: [concrete, circumstantial, tangential, other] Concentration/Attention Span: [impaired] [Per observation and interview with the patient] Recent Memory: [ impaired] [ 2 out of 3 in 3 minutes] Remote Memory: [wnl] [past events, as related history] Intelligence: [below average] [based on history, based on vocabulary, syntax, grammar, and content] Judgement: [ poor] [per patient's behavior/history of present illness] Insight: [poor] [understanding severity of illness/history of present illness] Admitting Diagnosis: [Schizophrenia, stimulant use disorder versus schizoaffective bipolar type] Patient Limitations: [medication, non-compliance, pathological/unsupported environment Initial Plan of Care: [To be admitted to the psychiatric unit on an involuntary basis since she's on demand hearing and required to receive psychiatric treatment. She had recently been at another hospital where she was mandated for treatment. Her last hospitalization here was formal voluntary but she is now been placed on 90 day order and she is not been compliant with her medications or her appointments. She'll be evaluated by medicine, psychiatry, nursing staff, social work, recreational therapy and multidisciplinary team approach Sunday through Sunday and adjustment of her medications until she is stable. She was placed on the medicines that she was restless but taking outpatient includes Abilify.] Estimated Length of Stay: [1 days] Initial Discharge Plan: [home, [facility], referred to therapist Prognosis: [good] [ Current Visit: Yes Status: Acute Priority: Low Code(s): F29 - UNSP PSYCHOSIS NOT DUE TO A SUBSTANCE OR KNOWN PHYSIOL COND SNOMED Code(s): 10195997 (2) Schizophrenia Current Visit: Yes Status: Acute Priority: Low Code(s): F20.9 - SCHIZOPHRENIA, UNSPECIFIED SNOMED Code(s): 44875513 Plan: Continue her Artane 3 times a day, Abilify 10 mg by mouth daily. Encourage her to go to groups and activities and stay up during the daytime. She will continue on clonidine for withdrawal from the amphetamines. add Cogentin 2 mg po bid. we'll also add Depakote 500 mg ER at bedtime for her racing thoughts and mood instability. she will got the Abilify intramuscular maintenna of 300 mg.Depakote level
[2018-09-04 18:37] LABS: Appearance,Urine Cloudy (Clear); Bacteria,Urine Few /hpf; Bilirubin,Urine Negative (Negative); Blood,Urine Negative (Negative); Color,Urine Light Yellow; Glucose,Urine (UA) Negative (Negative); Ketones,Urine Negative (Negative); Leukocyte Esterase,Urine Negative (Negative); Mucus,Urine Rare /hpf; Nitrite,Urine Positive (Negative); PH, Urine 6.5 (5.0-8.0); Protein,Urine Negative (Negative); Squamous Epithelial Cell,Urine 4 /hpf (0-4); Urobilinogen,Urine <2.0 mg/dL (<2.0); WBC,Urine 2 /hpf (0-5)
[2018-09-04] MEDS: LORazepam 1 MG TAB PO PRN (19:41)
[2018-09-04] MEDS: ARIPiprazole 10 MG TAB PO SCH (20:56)
[2018-09-04] MEDS: DIVALPROEX ER 500 MG TAB.ER.24H PO SCH (20:56)
[2018-09-04] MEDS: cloNIDine HCL 0.1 MG TAB PO SCH (20:56)
[2018-09-05 08:08] VITALS: BP 141/55; PULSE 73; RESP 16; TEMP 98
[2018-09-05] MEDS: BENZTROPINE MESYLATE 1 MG TAB PO SCH (08:33)
[2018-09-05] MEDS ORDERED: ARIPiprazole IM 400 MG VIAL (NO COST) IM ONE (11:30)
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
== END 2018-09-05 12:10 | disposition home or self-care (01) | DRG 885 ==
LOC: EC 13:46 → 3MHU 15:17
PROVIDERS: ADMIT Psychiatry & Neurology Psychiatry; ATTEND Psychiatry & Neurology Psychiatry
DX: F25.0 Schizoaffective disorder, bipolar type (principal); F15.14 Other stimulant abuse with stimulant-induced mood disorder; Z71.6 Tobacco abuse counseling; F17.210 Nicotine dependence, cigarettes, uncomplicated; F43.10 Post-traumatic stress disorder, unspecified; Z79.899 Other long term (current) drug therapy; Z91.19 Patient's noncompliance with other medical treatment and regimen; Z87.81 Personal history of (healed) traumatic fracture; Z88.2 Allergy status to sulfonamides; I10 Essential (primary) hypertension; F98.8 Other specified behavioral and emotional disorders with onset usually occurring in childhood and adolescence; Z56.0 Unemployment, unspecified; T43.8X6A Underdosing of other psychotropic drugs, initial encounter; Z91.128 Patient's intentional underdosing of medication regimen for other reason
CPT/HCPCS: 80053; 80061; 80164; 80306; 81001; 81025; 82075; 82248; 83036; 84443; 85025; 99285

== ENCOUNTER 2019-06-23 21:02 | Inpatient (IN) | payer MEDICARE, MEDICAID ==
--- NOTE | 2019-06-23 21:30 | ED ---
Psych HPI - General Chief Complaint: Psychiatric Symptoms Stated Complaint: Mental Health Time Seen by Provider: 06/23/19 21:30 Source: patient, police Mode of arrival: ambulatory - History of Present Illness Initial Comments: Coco is a 33-year-old female that extensive psychiatric history who is brought to the emergency department today by police with a pickup order. The patient was seen and evaluated by psychiatry last week at which time her urine drug screen was positive for multiple drugs the patient was manic or possibly psychotic at that time. Today she did not attend her follow-up appointment there is concern for her safety therefore pickup order was issued. Patient states that she didn't hear anybody come to her home for her follow-up visit. She developed the door. She states that he can obviously see her brain is working fine and she doesn't need to be here. - Related Data Home Medications Medication Instructions Recorded Confirmed Divalproex ER [Depakote ER] 500 mg PO HS 06/23/19 06/23/19 Divalproex Sodium [Depakote ER] 250 mg PO HS 06/23/19 06/23/19 LORazepam [Ativan] 2 mg PO Q4H PRN 06/23/19 06/23/19 Paliperidone IM [Invega Sustenna] 234 mg IM Q28D 06/23/19 06/23/19 Valbenazine Tosylate [Ingrezza] 40 mg PO DAILY 06/23/19 06/23/19 Previous Rx's Medication Instructions Recorded cloNIDine HCL [Catapres] 0.1 mg PO HS 30 Days #30 tab 09/05/18 Allergies Allergy/AdvReac Type Severity Reaction Status Date / Time Sulfa (Sulfonamide Allergy Rash/Hives Verified 06/23/19 22:02 Antibiotics) Review of Systems ROS Statement: Those systems with pertinent positive or pertinent negative responses have been documented in the HPI. ROS Other: All systems not noted in ROS Statement are negative. Past Medical History Past Medical History: No Reported History, Unable to Obtain Additional Past Medical History / Comment(s): due to acute psychosis History of Any Multi-Drug Resistant Organisms: None Reported Past Surgical History: Unable to Obtain Additional Past Surgical History / Comment(s): xray of the left forearm shows evidence of open reduction and internal fixation of old fracture of the L forearm Past Anesthesia/Blood Transfusion Reactions: No Reported Reaction Past Psychological History: Unable to Obtain Smoking Status: Current every day smoker Past Alcohol Use History: None Reported Past Drug Use History: None Reported - Past Family History Father Family Medical History: No Reported History, Unable to Obtain Additional Family Medical History / Comment(s): Age 52 Mother Family Medical History: No Reported History, Unable to Obtain Additional Family Medical History / Comment(s): Age 52 General Exam - General Exam Comments Initial Comments: Physical Exam GENERAL: Patient is well-developed and well-nourished. Patient is nontoxic and well- hydrated and is in no distress. HENT: Normocephalic, Atraumatic. EYES: PERRL, EOMI PULMONARY: Unlabored respirations. No audible rales rhonchi or wheezing was noted. CARDIOVASCULAR: There is a regular rate and rhythm without any murmurs gallops or rubs. ABDOMEN: Soft and nontender with normal bowel sounds. SKIN: Skin is clear with no lesions or rashes and otherwise unremarkable. : Deferred NEUROLOGIC: Patient is alert and oriented x3. Moving all extremities spontaneously MUSCULOSKELETAL: Normal extremities with adequate strength and full range of motion. No lower extremity swelling or edema. No calf tenderness. PSYCHIATRIC: Agitated, manic Limitations: no limitations Course Vital Signs 06/23/19 06/24/19 06/24/19 21:15 05:48 10:40 Temperature 99.2 F 97.6 F 98.0 F Pulse Rate 112 H 90 76 Respiratory 18 16 16 Rate Blood Pressure 145/80 108/65 120/85 O2 Sat by Pulse 97 96 100 Oximetry Medical Decision Making - Medical Decision Making The patient was seen and evaluated, history is obtained from police, review of the pickup order and the patient Patient with a history of psychiatric illness, noncompliance with medication, substance abuse, patient is been somewhat manic Concern for her safety Patient was evaluated by EPS, at this time there is no admission criteria here however the patient needs to be evaluated further and will be evaluated in the morning. She care was signed out to Dr. Wright, patient is pending evaluation by [facility] - Lab Data Result diagrams: 06/23/19 22:25 06/23/19 22:25 Lab Results 06/23/19 06/23/19 06/23/19 Range/Units 06:00 06:00 22:25 WBC (3.8-10.6) k/uL RBC (3.80-5.40) m/uL Hgb (11.4-16.0) gm/dL Hct (34.0-46.0) % MCV (80.0-100.0) fL MCH (25.0-35.0) pg MCHC (31.0-37.0) g/dL RDW (11.5-15.5) % Plt Count (150-450) k/uL Neutrophils % % Lymphocytes % % Monocytes % % Eosinophils % % Basophils % % Neutrophils # (1.3-7.7) k/uL Lymphocytes # (1.0-4.8) k/uL Monocytes # (0-1.0) k/uL Eosinophils # (0-0.7) k/uL Basophils # (0-0.2) k/uL Sodium 140 (137-145) mmol/L Potassium 4.3 (3.5-5.1) mmol/L Chloride 104 (98-107) mmol/L Carbon Dioxide 27 (22-30) mmol/L Anion Gap 9 mmol/L BUN 13 (7-17) mg/dL Creatinine 0.81 (0.52-1.04) mg/dL Est GFR (CKD-EPI)AfAm >90 (>60 ml/min/1.73 sqM) Est GFR (CKD-EPI)NonAf >90 (>60 ml/min/1.73 sqM) Glucose 106 H (74-99) mg/dL Estimated Ave Glu mg/dL 114 Hemoglobin A1c 5.6 (4.0-6.0) % Calcium 9.4 (8.4-10.2) mg/dL Total Bilirubin <0.1 L (0.2-1.3) mg/dL AST 20 (14-36) U/L ALT 11 (9-52) U/L Alkaline Phosphatase 90 (38-126) U/L Total Protein 6.8 (6.3-8.2) g/dL Albumin 4.0 (3.5-5.0) g/dL Triglycerides 89 (<150) mg/dL Cholesterol 138 (<200) mg/dL LDL Cholesterol, Calc 81 (0-99) mg/dL HDL Cholesterol 39 L (40-60) mg/dL TSH 1.870 (0.465-4.680) mIU/L Urine Color Urine Appearance (Clear) Urine pH (5.0-8.0) Ur Specific [place] (1.001-1.035) Urine Protein (Negative) Urine Glucose (UA) (Negative) Urine Ketones (Negative) Urine Blood (Negative) Urine Nitrite (Negative) Urine Bilirubin (Negative) Urine Urobilinogen (<2.0) mg/dL Ur Leukocyte Esterase (Negative) Urine RBC (0-5) /hpf Urine WBC (0-5) /hpf Ur Squamous Epith Cells (0-4) /hpf Urine Mucus (None) /hpf Urine HCG, Qual (Not Detectd) Salicylates <1.0 mg/dL Urine Opiates Screen (NotDetected) Ur Oxycodone Screen (NotDetected) Urine Methadone Screen (NotDetected) Ur Propoxyphene Screen (NotDetected) Acetaminophen <10.0 ug/mL Ur Barbiturates Screen (NotDetected) Valproic Acid 26.7 ug/mL U Tricyclic Antidepress (NotDetected) Ur Phencyclidine Scrn (NotDetected) Ur Amphetamines Screen (NotDetected) U Methamphetamines Scrn (NotDetected) U Benzodiazepines Scrn (NotDetected) Urine Cocaine Screen (NotDetected) U Marijuana (THC) Screen (NotDetected) Serum Alcohol <10 mg/dL 06/23/19 06/23/19 06/23/19 Range/Units 22:25 22:25 22:25 WBC 6.0 (3.8-10.6) k/uL RBC 4.01 (3.80-5.40) m/uL Hgb 12.3 (11.4-16.0) gm/dL Hct 36.3 (34.0-46.0) % MCV 90.5 (80.0-100.0) fL MCH 30.7 (25.0-35.0) pg MCHC 33.9 (31.0-37.0) g/dL RDW 14.6 (11.5-15.5) % Plt Count 316 (150-450) k/uL Neutrophils % 61 % Lymphocytes % 25 % Monocytes % 7 % Eosinophils % 5 % Basophils % 1 % Neutrophils # 3.7 (1.3-7.7) k/uL Lymphocytes # 1.5 (1.0-4.8) k/uL Monocytes # 0.4 (0-1.0) k/uL Eosinophils # 0.3 (0-0.7) k/uL Basophils # 0.1 (0-0.2) k/uL Sodium (137-145) mmol/L Potassium (3.5-5.1) mmol/L Chloride (98-107) mmol/L Carbon Dioxide (22-30) mmol/L Anion Gap mmol/L BUN (7-17) mg/dL Creatinine (0.52-1.04) mg/dL Est GFR (CKD-EPI)AfAm (>60 ml/min/1.73 sqM) Est GFR (CKD-EPI)NonAf (>60 ml/min/1.73 sqM) Glucose (74-99) mg/dL Estimated Ave Glu mg/dL Hemoglobin A1c (4.0-6.0) % Calcium (8.4-10.2) mg/dL Total Bilirubin (0.2-1.3) mg/dL AST (14-36) U/L ALT (9-52) U/L Alkaline Phosphatase (38-126) U/L Total Protein (6.3-8.2) g/dL Albumin (3.5-5.0) g/dL Triglycerides (<150) mg/dL Cholesterol (<200) mg/dL LDL Cholesterol, Calc (0-99) mg/dL HDL Cholesterol (40-60) mg/dL TSH (0.465-4.680) mIU/L Urine Color Light Yellow Urine Appearance Clear (Clear) Urine pH 6.5 (5.0-8.0) Ur Specific [place] 1.009 (1.001-1.035) Urine Protein Negative (Negative) Urine Glucose (UA) Negative (Negative) Urine Ketones Negative (Negative) Urine Blood Negative (Negative) Urine Nitrite Negative (Negative) Urine Bilirubin Negative (Negative) Urine Urobilinogen <2.0 (<2.0) mg/dL Ur Leukocyte Esterase Moderate H (Negative) Urine RBC 1 (0-5) /hpf Urine WBC 11 H (0-5) /hpf Ur Squamous Epith Cells 2 (0-4) /hpf Urine Mucus Rare H (None) /hpf Urine HCG, Qual Not Detected (Not Detectd) Salicylates mg/dL Urine Opiates Screen Not Detected (NotDetected) Ur Oxycodone Screen Not Detected (NotDetected) Urine Methadone Screen Not Detected (NotDetected) Ur Propoxyphene Screen Not Detected (NotDetected) Acetaminophen ug/mL Ur Barbiturates Screen Not Detected (NotDetected) Valproic Acid ug/mL U Tricyclic Antidepress Not Detected (NotDetected) Ur Phencyclidine Scrn Not Detected (NotDetected) Ur Amphetamines Screen Detected H (NotDetected) U Methamphetamines Scrn Detected H (NotDetected) U Benzodiazepines Scrn Detected H (NotDetected) Urine Cocaine Screen Not Detected (NotDetected) U Marijuana (THC) Screen Not Detected (NotDetected) Serum Alcohol mg/dL Disposition Clinical Impression: Acute exacerbation of psychosis, Substance abuse Disposition: HOME SELF-CARE Condition: Stable Is patient prescribed a controlled substance at d/c from ED?: No
[2019-06-23 22:37] LABS: Basophils # (A) 0.1 k/uL (0-0.2); Basophils % (A) 1 %; Eosinophils # (A) 0.3 k/uL (0-0.7); Eosinophils % (A) 5 %; HCT 36.3 % (34.0-46.0); HGB 12.3 gm/dL (11.4-16.0); Lymphocytes # (A) 1.5 k/uL (1.0-4.8); Lymphocytes % (A) 25 %; MCH 30.7 pg (25.0-35.0); MCHC 33.9 g/dL (31.0-37.0); MCV 90.5 fL (80.0-100.0); Mean Platelet Volume 6.5; Monocytes # (A) 0.4 k/uL (0-1.0); Monocytes % (A) 7 %; Neutrophils # (A) 3.7 k/uL (1.3-7.7); Neutrophils % (A) 61 %; Platelet Count 316 k/uL (150-450); RBC 4.01 m/uL (3.80-5.40); RDW 14.6 % (11.5-15.5)
[2019-06-23 22:44] LABS: Appearance,Urine Clear (Clear); Bilirubin,Urine Negative (Negative); Blood,Urine Negative (Negative); Color,Urine Light Yellow; Glucose,Urine (UA) Negative (Negative); Ketones,Urine Negative (Negative); Leukocyte Esterase,Urine Moderate (Negative); Mucus,Urine Rare /hpf; Nitrite,Urine Negative (Negative); PH, Urine 6.5 (5.0-8.0); Protein,Urine Negative (Negative); RBC,Urine 1 /hpf (0-5); Specific Gravity,Urine 1.009 (1.001-1.035); Squamous Epithelial Cell,Urine 2 /hpf (0-4); Urobilinogen,Urine <2.0 mg/dL (<2.0); WBC,Urine 11 /hpf (0-5)
[2019-06-23 22:46] LABS: ALT 11 U/L (9-52); AST 20 U/L (14-36); Acetaminophen <10.0 ug/mL; African American GFR (CKD) >90 (>60 ml/min/1.73 sqM); Alcohol <10 mg/dL; Alkaline Phosphatase 90 U/L (38-126); Anion Gap 9 mmol/L; Blood Urea Nitrogen 13 mg/dL (7-17); Calcium 9.4 mg/dL (8.4-10.2); Carbon Dioxide 27 mmol/L (22-30); Chloride 104 mmol/L (98-107); Glucose 106 mg/dL (74-99); Potassium 4.3 mmol/L (3.5-5.1); Salicylate <1.0 mg/dL; Sodium 140 mmol/L (137-145); Total Bilirubin <0.1 mg/dL (0.2-1.3); Total Protein 6.8 g/dL (6.3-8.2)
[2019-06-23 22:48] LABS: Amphetamine Screen,Urine Detected (NotDetected); Barbiturate Screen,Urine Not Detected (NotDetected); Benzodiazepines Screen,Urine Detected (NotDetected); Cocaine Screen,Urine Not Detected (NotDetected); Methadone Screen, Urine Not Detected (NotDetected); Opiate Screen,Urine Not Detected (NotDetected); Oxycodone Screen, Urine Not Detected (NotDetected); Phencyclidine Screen,Urine Not Detected (NotDetected); Tricyclic Antidepressant,Urine Not Detected (NotDetected); Urn Cannabinoid Scrn Not Detected (NotDetected)
[2019-06-24] MEDS ORDERED: NICOTINE 21MG/24HR PATCH TRANSDERM STA (13:37)
[2019-06-24] MEDS ORDERED: ACETAMINOPHEN TAB 325 MG TAB PO STA (14:08)
[2019-06-24] MEDS ORDERED: LORazepam 2 MG/ML INJ IM STA (18:24)
[2019-06-24] MEDS ORDERED: MAG HYDROX/AL HYDROX/SIMETH 30 ML CUP PO PRN (19:11)
[2019-06-24] MEDS ORDERED: ACETAMINOPHEN TAB 325 MG TAB PO PRN (19:11)
[2019-06-24] MEDS ORDERED: MAGNESIUM HYDROXIDE 2,400 MG/10 ML CUP PO PRN (19:11)
[2019-06-24] MEDS ORDERED: LORazepam 2 MG/ML INJ IM PRN (19:13)
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
--- NOTE | 2019-06-25 14:28 | P.CONS ---
History of Present Illness - History of Present Illness This is a pleasant 53 years old female with past medical history of schizophr enia. She was admitted to the psychiatric mental health unit for acute psychosis signs and symptoms. We were consulted for apical management. Patient is walking without difficulty. She denies chest pain or dyspnea. She has no nausea vomiting. She starting that well. No abdominal pain. No change in urine or bowel habits. No fever. No headache. No weakness or abnormal sensation. Vitas looks stable. Labs were unremarkable, she has negative urine test. Urine drug green is showing amphetamine, methamphetamine, benzodiazepine. She smokes about 2-3 cigars per day, no alcohol or illicit tracts as patient states. Review of Systems CONSTITUTIONAL: No fever, no malaise, no fatigue. HEENT: No recent visual problems or hearing problems. Denied any sore throat. CARDIOVASCULAR: No orthopnea, PND, no palpitations, no syncope. PULMONARY: No shortness of breath, no cough, no hemoptysis. GASTROINTESTINAL: No diarrhea, no nausea, no vomiting, no abdominal pain. Normoactive bowel sounds. NEUROLOGICAL: No headaches, no weakness, no numbness. HEMATOLOGICAL: Denies any bleeding or petechiae. GENITOURINARY: Denies any burning micturition, frequency, or urgency. MUSCULOSKELETAL/RHEUMATOLOGICAL: Denies any joint pain, swelling, or any muscle pain. ENDOCRINE: Denies any polyuria or polydipsia. Past Medical History Past Medical History: No Reported History, Unable to Obtain Additional Past Medical History / Comment(s): due to acute psychosis History of Any Multi-Drug Resistant Organisms: None Reported Past Surgical History: Unable to Obtain Additional Past Surgical History / Comment(s): xray of the left forearm shows evidence of open reduction and internal fixation of old fracture of the L forear m Past Anesthesia/Blood Transfusion Reactions: No Reported Reaction Past Psychological History: Unable to Obtain Smoking Status: Current every day smoker Past Alcohol Use History: None Reported Past Drug Use History: None Reported - Past Family History Father Family Medical History: No Reported History, Unable to Obtain Additional Family Medical History / Comment(s): Age 52 Mother Family Medical History: No Reported History, Unable to Obtain Additional Family Medical History / Comment(s): Age 52 Medications and Allergies Home Medications Medication Instructions Recorded Confirmed Type cloNIDine HCL [Catapres] 0.1 mg PO HS 30 Days #30 tab 09/05/18 06/23/19 Rx Divalproex ER [Depakote ER] 500 mg PO HS 06/23/19 06/23/19 History Divalproex Sodium [Depakote ER] 250 mg PO HS 06/23/19 06/23/19 History LORazepam [Ativan] 2 mg PO Q4H PRN 06/23/19 06/23/19 History Paliperidone IM [Invega Sustenna] 234 mg IM Q28D 06/23/19 06/23/19 History Valbenazine Tosylate [Ingrezza] 40 mg PO DAILY 06/23/19 06/23/19 History Allergies Allergy/AdvReac Type Severity Reaction Status Date / Time Sulfa (Sulfonamide Allergy Rash/Hives Verified 06/23/19 22:02 Antibiotics) Physical Exam Vitals: Vital Signs Temp Pulse Resp BP 06/24/19 18:57 98.2 F 108 H 16 129/79 Intake and Output 06/24/19 06/25/19 06/25/19 22:59 06:59 14:59 Other: Weight 59 kg GENERAL: The patient is alert and oriented x3, not in any acute distress. Well developed, well nourished. HEENT: Pupils are round and equally reacting to light. EOMI. No scleral icterus. No conjunctival pallor. Normocephalic, atraumatic. No pharyngeal erythema. No thyromegaly. CARDIOVASCULAR: S1 and S2 present. No murmurs, rubs, or gallops. PULMONARY: Chest is clear to auscultation, no wheezing or crackles. ABDOMEN: Soft, nontender, nondistended, normoactive bowel sounds. No palpable organomegaly. MUSCULOSKELETAL: No joint swelling or deformity. EXTREMITIES: No cyanosis, clubbing, or pedal edema. NEUROLOGICAL: Gross neurological examination did not reveal any focal deficits. SKIN: No rashes. Results CBC & Chem 7: 06/23/19 22:25 06/23/19 22:25 Labs: Abnormal Lab Results - Last 24 Hours (Table) 06/23/19 Range/Units 06:00 HDL Cholesterol 39 L (40-60) mg/dL Assessment and Plan Assessment: -Schizophrenia and acute psychosis, management as per primary -nicotine dependence, patient is counseled. Patient declined nicotine patch -DVT prophylaxis. Low risk. No heparin. As patient is mobile - GI prophylaxis: No need recommend patient follow up with his PCP within one week after discharge Thank you for consulting us please feel free to contact us for any further question or concern
[2019-06-25] MEDS: LORazepam 1 MG TAB PO PRN (14:38)
[2019-06-25 15:33] LABS: Hemoglobin A1C 5.6 % (4.0-6.0)
[2019-06-25] MEDS: HALOPERIDOL LACTATE 5 MG/ML 1 ML VIAL IM PRN (15:58)
[2019-06-25] MEDS: INGREZZA 40 MG PO SCH (16:58)
[2019-06-25] MEDS: DIVALPROEX ER 250 MG TAB.ER.24H PO SCH (21:43)
[2019-06-26] MEDS: INGREZZA 40 MG PO SCH (08:38)
--- NOTE | 2019-06-26 09:22 | P.PN ---
Progress Note - Text Interval history: The patient's found in her room she follows me to an interview room. She states she's feeling better. When asked how she is feeling better she states "less of the paranoid stuff I guess". She indicates she did not go to group yesterday or goalsetting group this morning. She is encouraged to attend groups. She states that she is eating she has not yet showered. She reports compliance with her medication. We discussed that we are able to get the Ingrezza from [facility] brought to the mental health unit. We reviewed her other psychotropic medication. Mental status exam: The patient is alert she is dressed in her own clothing. Her pants are dirty she has not showered since she's been here. Eye contact is appropriate. She frequently changes position while seated in the chair predominantly moving her legs there is some repetitive jaw movement. She offers no spontaneous speech she provides brief answers to questions asked. She's not particularly engaging in the interview today. She reports her mood is good affect is bland. She appears to be minimizing symptoms of psychosis when just yesterday she described a very detailed delusional construct. Insight and judgment are impaired. Due to her limited participation thought process was fairly linear. She demonstrated no verbal or physical aggressiveness. Plan: The patient will continue on her current psychotropic medications. We will monitor for any side effects from the Ingrezza. We will plan to draw another Depakote level during the hospitalization. She is encouraged participate in the milieu. We will monitor her for safety. She requires continued psychiatric hospitalization to further stabilize.
[2019-06-26] MEDS: LORazepam 1 MG TAB PO PRN (12:26)
[2019-06-26] MEDS: DIVALPROEX ER 250 MG TAB.ER.24H PO SCH (22:21)
[2019-06-27] MEDS: INGREZZA 40 MG PO SCH (09:11)
--- NOTE | 2019-06-27 10:17 | P.PN ---
Progress Note - Text Interval history: The patient is found in group she follows me to an interview room. She reports her mood is fine. She ask when she can be discharged. She has been compliant with her medication. She reports no side effects from the Ingrezza so far. She indicates that she is attending more groups. Appetite reported as stable. She indicates she does not wish to participate in inpatient chemical dependency treatment. She spontaneously states that she is fearful because she is alone. We discussed ways in which she could develop her support further once discharged. We discussed the need for her to discontinue using methamphetamine and Adderall. She states she will never use methamphetamine again but is somewhat resistant to the idea of not using Adderall. Mental status exam: The patient is a female appearing her stated age. She is dressed in her own clothing hygiene adequate she is wearing her eyeglasses. She has healing excoriation wounds on her face. She continues to demonstrate symptoms of tardive dyskinesia with trunk and lower extremity movement and some intermittent tongue protrusion. She reports no suicidal or homicidal thoughts. Initially she denies having any hallucinations then when challenged she states she is hearing her own voice speaking to her. She does continue to have some paranoid delusional thought content. She demonstrates no verbal or physical aggressiveness. Insight and judgment limited. Schizophrenia, methamphetamine use disorder, stimulant use disorder, the patient will continue on her current medications. Once appropriate we will obtain a Depakote level. We will continue to discuss the need for her to discontinue use of Adderall as well as methamphetamine. She will be encouraged to reconsider inpatient chemical dependency treatment. Vital signs reviewed. We will monitor her for safety. At this time she requires continued psychiatric hospitalization.
[2019-06-27] MEDS: LORazepam 1 MG TAB PO PRN (14:46)
[2019-06-27] MEDS: HALOPERIDOL LACTATE 5 MG/ML 1 ML VIAL IM PRN (16:58)
[2019-06-27] MEDS: DIVALPROEX ER 250 MG TAB.ER.24H PO SCH (22:15)
[2019-06-28] MEDS: INGREZZA 40 MG PO SCH (08:10)
--- NOTE | 2019-06-28 12:13 | P.PN ---
Progress Note - Text Progress Note Date: 06/28/19 Interval history: Patient was seen wandering the hallways and was agreeable to speak to freelance writer. Patient was directable and cooperative today. She stated that she is feeling much better as she is "away from the drugs". She stated that she is participating in groups and is learning coping skills. She claims that she is taking her medications and denies any problem with them. She claims that she slept well last night and has been eating well. At this time patient denies any suicidal or homicidal ideations intent or plan. Denies any Auditory or visual hallucinations. Patient denies any side effects from the medications and has been compliant with meds. Mental status exam: General Appearance: Patient appears to be older than stated age is alert, directable and cooperative. Behavior: No agitated behavior. Patient is calm and directable Speech: Patient's speech is fluent and nonpressured. Mood/Affect: Mood is improving, affect is congruent Suicidality/Homicidality: Patient denies having any suicidal or homicidal ideation intent or plan. Perceptions: Patient denies any auditory or visual hallucinations. Though content/process: There is no evidence of any delusional thought content and thought process is linear and goal-directed. Memory and concentration: AOX3, grossly intact for the purposes of this session Judgment and insight: improving, mildly Assessment/Plan: Continue with current diagnosis. Patient continues to meet criteria for inpatient psychiatric admission for symptom stabilization and safety.Patient will be maintained on current psychotropic medication regimen. Monitor for medication compliance and for any psychotropic medication side effects. Will continue to monitor ongoing response to treatment.
[2019-06-28] MEDS: LORazepam 1 MG TAB PO PRN ×2 (15:26→22:06)
[2019-06-28] MEDS: HALOPERIDOL LACTATE 5 MG/ML 1 ML VIAL IM PRN (16:55)
[2019-06-28] MEDS: DIVALPROEX ER 250 MG TAB.ER.24H PO SCH (22:05)
[2019-06-29 06:56] VITALS: RESP 16
[2019-06-29] MEDS: INGREZZA 40 MG PO SCH (08:08)
--- NOTE | 2019-06-29 12:37 | P.PN ---
Progress Note - Text Progress Note Date: 06/29/19 Interval history: Patient was seen in the group and was agreeable to speak to inspector automatic typewriter. Patient was directable and cooperative today and appeared to have no overnight complaints. She stated that she is better as she is on the medications and in the hospital. She stated that she is participating in groups and is learning coping skills which she plans on using when she is discharged. She claims that she is taking her medications and denies any problem with them. She claims that she slept well last night and has been eating well. At this time patient denies any suicidal or homicidal ideations intent or plan. Denies any Auditory or visual hallucinations. Patient denies any side effects from the medications and has been compliant with meds. Mental status exam: General Appearance: Patient appears to be older than stated age is alert, directable and cooperative. Behavior: No agitated behavior. Patient is calm and directable Speech: Patient's speech is fluent and nonpressured. Mood/Affect: Mood is improving, affect is congruent Suicidality/Homicidality: Patient denies having any suicidal or homicidal ideation intent or plan. Perceptions: Patient denies any auditory or visual hallucinations. Though content/process: There is no evidence of any delusional thought content and thought process is linear and goal-directed. Memory and concentration: AOX3, grossly intact for the purposes of this session Judgment and insight: improving, mildly Assessment/Plan: Continue with current diagnosis. Patient continues to meet criteria for inpatient psychiatric admission for symptom stabilization and safety.Patient will be maintained on current psychotropic medication regimen. M onitor for medication compliance and for any psychotropic medication side effects. Will continue to monitor ongoing response to treatment.
[2019-06-29] MEDS: LORazepam 1 MG TAB PO PRN (15:20)
[2019-06-29] MEDS: DIVALPROEX ER 250 MG TAB.ER.24H PO SCH (21:42)
[2019-06-30] MEDS: INGREZZA 40 MG PO SCH (08:31)
--- NOTE | 2019-06-30 09:28 | P.PN ---
Progress Note - Text Interval history: The patient is found in her room she follows me to an interview room. She reports her mood is good. She inquires as to whether or not she can return to her room and board. We reviewed her psychotropic medications. She indicates she slept last night staff reported she slept 6 hours. She reports that she is eating. We discussed her substance use she still does not wish to attend inpatient chemical dependency treatment. Progress notes from the weekend were reviewed. Mental status exam: The patient is alert she is seated in the chair eye contact is staring in nature. She demonstrates no spontaneous speech but answers questions briefly. Hygiene grooming improved. She continues to demonstrate evidence of tardive dyskinesia but the amplitude of her leg movements seems to be decreased today during this session. She is reporting no suicidal or homicidal thoughts. She endorses no auditory or visual hallucinations but she is likely under reporting. She is known to have psychotic symptoms at baseline mainly delusional thought. She demonstrates no verbal or physical aggressiveness. Insight and judgment limited. She is oriented to person place and date. Impression/plan: Schizophrenia, we will continue her current medication. We will draw a Depakote level in the morning. Social work will confirm that she is able to return to her room and board. She is encouraged to fully participate in the milieu. She refuses referral for inpatient chemical dependency treatment. She does not wish to take any additional medications such as naltrexone for substance use issues. If she remains clinically stable we will consider discharge tomorrow. I will signs reviewed. I will confer with the treatment team regarding her progress over the last 2 days.
[2019-06-30] MEDS: LORazepam 1 MG TAB PO PRN (15:17)
[2019-06-30] MEDS: DIVALPROEX ER 250 MG TAB.ER.24H PO SCH (21:15)
[2019-07-01 06:47] VITALS: BP 108/57; PULSE 76; TEMP 98.3
[2019-07-01] MEDS: INGREZZA 40 MG PO SCH (08:56)
--- NOTE | 2019-07-01 10:16 | P.DS ---
Providers Date of admission: 06/24/19 18:25 Expected date of discharge: 07/01/19 Attending physician: Alek Hill Consults: 06/24/19 19:11 Consult Physician Routine Consulting Provider: Gianna Nye Consult Reason/Comments: H&P and medical Do you want consulting provider notified?: Yes Primary care physician: Vinnie Bueno - Discharge Diagnosis(es) (1) Schizophrenia Current Visit: Yes Status: Acute Priority: High (2) Methamphetamine use disorder, severe Current Visit: Yes Status: Acute Priority: High (3) Opioid use disorder Current Visit: Yes Status: Acute Priority: Medium Hospital Course: Brief summary of admission note: This patient is a 33-year-old single female who was admitted to the mental health unit for acute symptoms of psychosis. The patient is known to the psychiatric service she has an established diagnosis of schizophrenia. She is also known to abuse methamphetamine and stimulant medication. Her drug screen was positive for amphetamine and methamphetamine. She presented with a variety of delusional statements and sad mood. Sleep was decreased appetite was decreased energy level was heightened. For full details please refer to my psychiatric evaluation dated 06/25/2019. Summary of hospital course: The patient was admitted to the mental health unit in voluntarily. A second clinical certificate was completed. During the hospitalization a deferral conference was held with her document review attorney and the patient decided to defer a full court hearing. The patient had been given an injection of Invega Sustenna 234 mg on 06/17/2019. She had also been prescribed Depakote ER 750 mg at bedtime which was restarted. Her Depakote level upon presentation was subtherapeutic at approximately 27. She was also on Ingrezza 40 mg daily for tardive dyskinesia but she had not yet started that medication. Ativan was provided as needed the clonidine was discontinued. Clearly upon presentation the patient's symptoms of psychosis were exacerbated by use of methamphetamine. Over the course of the hospitalization she demonstrated improved stability. Her behavior became much more appropriate. She is now directable. She is able to participate in her own activities of daily living. She is attending groups and is seated quietly in her chair during group. She has been sleeping adequately throughout the night she is eating appropriately. At this time we feel that she is stabilized and is appropriate to transition back to outpatient care. Mental status exam: The patient is a thin female she is dressed in her own clothing hygiene grooming much improved. The facial excoriations are healing. She endorses a good mood affect is constricted. She mainly response to questions and does not have much spontaneous speech. When she seated in the chair she demonstrates some intermittent protrusion of her tongue and jaw mov ement she is shaking her leg throughout the session. Since starting the Ingrezza there has been some improvement however in terms of the amplitude and frequency of leg movements. The patient reports no suicidal or homicidal ideation intent or plan. She is reporting no auditory or visual hallucinations. She is endorsing no specific delusions however I suspect she continues to have baseline paranoid thinking. She demonstrates no verbal or physical aggressiveness. Overall she is pleasant and cooperative and easily directed in the session. Impressions 1. Schizophrenia, methamphetamine use disorder, opioid use disorder Plan: The patient will be discharged from mental health unit today so long as she is able to return to her room and board as directed by her guardian. She will continue following up with [facility] for outpatient care. The patient is on a deferral agreement regarding ongoing psychiatric care. She will continue on Invega Sustenna injections of 234 mg in the next injection will be due on 07/08/2019. He will continue on Depakote ER 750 mg at bedtime. Her Depakote level as of today was 78.5 her liver enzymes are well within normal limits. Continue the Ingrezza supplied by [facility] 40 mg daily. It appears that this medication is having a beneficial effect and I would consider titrating it further. She declined attending inpatient chemical dependency treatment. She declines being prescribed any medication for substance use such as naltrexone. We discussed the importance of her abstaining from any medicines that are not prescribed to her as well as illicit drugs as these will precipitate symptoms of psychosis and elevate her safety risk. At this time there is no imminent safety risk she is appropriate for continued care as an outpatient. She is instructed to return to the hospital for any acute safety concerns. Patient Condition at Discharge: Stable Plan - Discharge Summary New Discharge Prescriptions: New Divalproex ER [Depakote ER] 750 mg PO HS #45 tab.er.24h Continue Valbenazine Tosylate [Ingrezza] 40 mg PO DAILY Paliperidone IM [Invega Sustenna] 234 mg IM Q28D #1 ml Discontinued cloNIDine HCL [Catapres] 0.1 mg PO HS 30 Days #30 tab LORazepam [Ativan] 2 mg PO Q4H PRN PRN Reason: Agitation Or Acute Anxiety Divalproex Sodium [Depakote ER] 250 mg PO HS Divalproex ER [Depakote ER] 500 mg PO HS Discharge Medication List Valbenazine Tosylate [Ingrezza] 40 mg PO DAILY 06/23/19 [History] Divalproex ER [Depakote ER] 750 mg PO HS #45 tab.er.24h 07/01/19 [Rx] Paliperidone IM [Invega Sustenna] 234 mg IM Q28D #1 ml 07/01/19 [Rx] Follow up Appointment(s)/Referral(s): Myles Birmingham MD [Primary Care Provider] - 1-2 days Patient Instructions/Handouts: Methamphetamine Abuse (ED), Polysubstance Abuse (ED) Activity/Diet/Wound Care/Special Instructions: Activity and diet as tolerated. Avoid the use of street drugs and alcohol. Take all medications as prescribed. When you are in need of refills on your medications please contact your medical provider and/ or outpatient psychiatrist to have this done. Please go to scheduled outpatient appointment for aftercare. If symptoms return or become worse call the crisis line at and/or go to the nearest emergency room for evaluation.
== END 2019-07-01 14:28 | disposition home or self-care (01) | DRG 885 ==
LOC: EC 21:02 → 3MHU 06-24 18:25
PROVIDERS: ADMIT Psychiatry & Neurology Psychiatry; ATTEND Psychiatry & Neurology Psychiatry
DX: F20.9 Schizophrenia, unspecified (principal); F15.20 Other stimulant dependence, uncomplicated; F11.10 Opioid abuse, uncomplicated; F17.200 Nicotine dependence, unspecified, uncomplicated; G24.01 Drug induced subacute dyskinesia; Z79.899 Other long term (current) drug therapy; Z91.14 Patient's other noncompliance with medication regimen; Z88.2 Allergy status to sulfonamides; Z98.890 Other specified postprocedural states
CPT/HCPCS: 36415; 80053; 80061; 80164; 80306; 80320; 80329; 81001; 81025; 82075; 83036; 83520; 84443; 84450; 84460; 85025; 96372; 99285

== ENCOUNTER 2019-07-07 22:54 | Inpatient (IN) | payer MEDICARE, MEDICAID ==
--- NOTE | 2019-07-08 00:55 | ED ---
Psych HPI - General Chief Complaint: Psychiatric Symptoms Stated Complaint: Mental Health Time Seen by Provider: 07/07/19 23:38 Source: patient, police Mode of arrival: ambulatory Limitations: altered mental status - History of Present Illness Initial Comments: This patient is a 33-year-old woman brought to the emergency department to be evaluated for what sounds like worsening of her psychiatric symptoms. The patient at my interview voices paranoid delusions. She states that she is not a which. She believes that someone has kept her as a prisoner wore. The patient also comments that the blankets smell like [employer]mers glue. Complaint: other -: unknown Associated Psychiatric Symptoms: delusions History of same: Yes - Related Data Home Medications Medication Instructions Recorded Confirmed Valbenazine Tosylate [Ingrezza] 40 mg PO DAILY 06/23/19 07/08/19 traZODone HCL 200 mg PO HS 07/08/19 07/08/19 Previous Rx's Medication Instructions Recorded Divalproex ER [Depakote ER] 750 mg PO HS #45 tab.er.24h 07/01/19 Paliperidone IM [Invega Sustenna] 234 mg IM Q28D #1 ml 07/01/19 Allergies Allergy/AdvReac Type Severity Reaction Status Date / Time Sulfa (Sulfonamide Allergy Rash/Hives Verified 07/08/19 07:28 Antibiotics) Review of Systems ROS Statement: Those systems with pertinent positive or pertinent negative responses have been documented in the HPI. ROS Other: All systems not noted in ROS Statement are negative. Limitations: ROS unobtainable due to patients medical condition Past Medical History Past Medical History: No Reported History, Unable to Obtain Additional Past Medical History / Comment(s): due to acute psychosis History of Any Multi-Drug Resistant Organisms: None Reported Past Surgical History: Unable to Obtain Additional Past Surgical History / Comment(s): xray of the left forearm shows evidence of open reduction and internal fixation of old fracture of the L forea rm Past Anesthesia/Blood Transfusion Reactions: No Reported Reaction Past Psychological History: Unable to Obtain Smoking Status: Current every day smoker Past Alcohol Use History: None Reported Past Drug Use History: None Reported - Past Family History Father Family Medical History: No Reported History, Unable to Obtain Additional Family Medical History / Comment(s): Age 52 Mother Family Medical History: No Reported History, Unable to Obtain Additional Family Medical History / Comment(s): Age 52 General Exam Limitations: no limitations General appearance: alert, in no apparent distress Head exam: Present: atraumatic, normocephalic Eye exam: Present: normal appearance. Absent: scleral icterus, conjunctival injection ENT exam: Present: normal oropharynx Neck exam: Present: normal inspection Respiratory exam: Present: normal lung sounds bilaterally. Absent: respiratory distress, wheezes, rales, rhonchi, stridor Cardiovascular Exam: Present: regular rate, normal rhythm, normal heart sounds. Absent: systolic murmur, diastolic murmur, rubs, gallop GI/Abdominal exam: Present: soft. Absent: distended, tenderness, guarding, rebound Extremities exam: Present: normal inspection, normal capillary refill. Absent: pedal edema Neurological exam: Present: alert, normal gait Psychiatric exam: Present: anxious, flat affect, other (Bizarre affect with evidence of paranoid delusions. Tangential thought processes). Absent: homicidal ideation, suicidal ideation Skin exam: Present: warm, dry, intact, normal color. Absent: rash Course Vital Signs 07/07/19 07/08/19 23:07 04:15 Temperature 98.5 F Pulse Rate 109 H 99 Respiratory 18 18 Rate Blood Pressure 96/71 102/78 O2 Sat by Pulse 94 L 95 Oximetry Medical Decision Making - Lab Data Result diagrams: 07/08/19 03:00 Lab Results 07/08/19 07/08/19 Range/Units 03:00 03:00 WBC 6.9 (3.8-10.6) k/uL RBC 4.18 (3.80-5.40) m/uL Hgb 12.2 (11.4-16.0) gm/dL Hct 37.9 (34.0-46.0) % MCV 90.6 (80.0-100.0) fL MCH 29.2 (25.0-35.0) pg MCHC 32.3 (31.0-37.0) g/dL RDW 12.9 (11.5-15.5) % Plt Count 255 (150-450) k/uL Neutrophils % 61 % Lymphocytes % 24 % Monocytes % 7 % Eosinophils % 5 % Basophils % 1 % Neutrophils # 4.2 (1.3-7.7) k/uL Lymphocytes # 1.7 (1.0-4.8) k/uL Monocytes # 0.5 (0-1.0) k/uL Eosinophils # 0.4 (0-0.7) k/uL Basophils # 0.1 (0-0.2) k/uL TSH 1.670 (0.465-4.680) mIU/L Disposition Clinical Impression: Acute psychosis Disposition: ADMITTED IP TO THIS [facility] Condition: Poor Is patient prescribed a controlled substance at d/c from ED?: No Referrals: Myles Birmingham MD [Primary Care Provider] - 1-2 days
[2019-07-08] MEDS: LORazepam 1 MG TAB PO STA ×2 (01:57→02:00)
[2019-07-08] MEDS ORDERED: LORazepam 1 MG TAB PO STA (01:59)
[2019-07-08 03:16] LABS: Basophils # (A) 0.1 k/uL (0-0.2); Basophils % (A) 1 %; Eosinophils # (A) 0.4 k/uL (0-0.7); Eosinophils % (A) 5 %; HCT 37.9 % (34.0-46.0); HGB 12.2 gm/dL (11.4-16.0); Lymphocytes # (A) 1.7 k/uL (1.0-4.8); Lymphocytes % (A) 24 %; MCH 29.2 pg (25.0-35.0); MCHC 32.3 g/dL (31.0-37.0); MCV 90.6 fL (80.0-100.0); Mean Platelet Volume 6.5; Monocytes # (A) 0.5 k/uL (0-1.0); Monocytes % (A) 7 %; Neutrophils # (A) 4.2 k/uL (1.3-7.7); Neutrophils % (A) 61 %; Platelet Count 255 k/uL (150-450); RBC 4.18 m/uL (3.80-5.40); RDW 12.9 % (11.5-15.5); WBC 6.9 k/uL (3.8-10.6)
[2019-07-08] MEDS ORDERED: MAGNESIUM HYDROXIDE 2,400 MG/10 ML CUP PO PRN (12:48)
[2019-07-08] MEDS ORDERED: MAG HYDROX/AL HYDROX/SIMETH 30 ML CUP PO PRN (12:48)
[2019-07-08 14:19] VITALS: BMI 21.2
[2019-07-08 15:41] LABS: Amphetamine Screen,Urine Detected (NotDetected); Barbiturate Screen,Urine Not Detected (NotDetected); Benzodiazepines Screen,Urine Detected (NotDetected); Cocaine Screen,Urine Not Detected (NotDetected); Methadone Screen, Urine Not Detected (NotDetected); Opiate Screen,Urine Detected (NotDetected); Oxycodone Screen, Urine Not Detected (NotDetected); Phencyclidine Screen,Urine Not Detected (NotDetected); Tricyclic Antidepressant,Urine Not Detected (NotDetected); Urn Cannabinoid Scrn Not Detected (NotDetected)
[2019-07-08 19:22] LABS: Appearance,Urine Cloudy (Clear); Bilirubin,Urine Negative (Negative); Blood,Urine Negative (Negative); Color,Urine Yellow; Glucose,Urine (UA) Negative (Negative); Ketones,Urine Negative (Negative); Leukocyte Esterase,Urine Negative (Negative); Mucus,Urine Rare /hpf; Nitrite,Urine Negative (Negative); Protein,Urine Negative (Negative); Specific Gravity,Urine 1.017 (1.001-1.035); Squamous Epithelial Cell,Urine 2 /hpf (0-4); Urobilinogen,Urine <2.0 mg/dL (<2.0); WBC,Urine 3 /hpf (0-5)
[2019-07-08] MEDS: DIVALPROEX ER 250 MG TAB.ER.24H PO SCH (20:16)
[2019-07-09] MEDS: VALBENAZINE TOSYLATE PO SCH (09:28)
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
[2019-07-09] MEDS: ZIPRASIDONE 20 MG VIAL IM PRN (12:14)
--- NOTE | 2019-07-09 13:13 | P.CONS ---
History of Present Illness - Reason for Consult Medical clearance - History of Present Illness Patient is a 33-year-old female admitted for acute psychosis patient does have history of schizophrenia. Patient was provided good history until I asked her about her drug abuse history and she said she rather not talk about that with me. Although she admits to using methamphetamine denied any IV drug use. P atient any fever chills nausea vomiting abdominal pain patient denied any other medical complaints. Patient looked bit paranoid and little fatigued as well probably because of her psychiatric medications. Review of Systems REVIEW OF SYSTEMS: CONSTITUTIONAL: No fever, no malaise, no fatigue. HEENT: No recent visual problems or hearing problems. Denied any sore throat. CARDIOVASCULAR: No chest pain, orthopnea, PND, no palpitations, no syncope. PULMONARY: No shortness of breath, no cough, no hemoptysis. GASTROINTESTINAL: No diarrhea, no nausea, no vomiting, no abdominal pain. NEUROLOGICAL: No headaches, no weakness, no numbness. HEMATOLOGICAL: Denies any bleeding or petechiae. GENITOURINARY: Denies any burning micturition, frequency, or urgency. MUSCULOSKELETAL/RHEUMATOLOGICAL: Denies any joint pain, swelling, or any muscle pain. ENDOCRINE: Denies any polyuria or polydipsia. The rest of the 14-point review of systems is negative. Past Medical History Past Medical History: No Reported History Additional Past Medical History / Comment(s): due to acute psychosis History of Any Multi-Drug Resistant Organisms: None Reported Past Surgical History: No Surgical Hx Reported Additional Past Surgical History / Comment(s): xray of the left forearm shows evidence of open reduction and internal fixation of old fracture of the L forearm Past Anesthesia/Blood Transfusion Reactions: No Reported Reaction Smoking Status: Light tobacco smoker - Past Family History Father Family Medical History: No Reported History Additional Family Medical History / Comment(s): Age 52 Mother Family Medical History: No Reported History Additional Family Medical History / Comment(s): Age 52 Medications and Allergies Home Medications Medication Instructions Recorded Confirmed Type Valbenazine Tosylate [Ingrezza] 40 mg PO DAILY 06/23/19 07/08/19 History Divalproex ER [Depakote ER] 750 mg PO HS #45 [id number] 07/01/19 07/08/19 Rx Paliperidone IM [Invega Sustenna] 234 mg IM Q28D #1 ml 07/01/19 07/08/19 Rx traZODone HCL 200 mg PO HS 07/08/19 07/08/19 History Allergies Allergy/AdvReac Type Severity Reaction Status Date / Time Sulfa (Sulfonamide Allergy Rash/Hives Verified 07/08/19 07:28 Antibiotics) Physical Exam PHYSICAL EXAMINATION: GENERAL: The patient is alert and oriented x3, not in any acute distress. Well developed, well nourished. Patient appears to be bit paranoid does have dry mouth. HEENT: Pupils are round and equally reacting to light. EOMI. No scleral icterus. No conjunctival pallor. Normocephalic, atraumatic. No pharyngeal erythema. No thyromegaly. CARDIOVASCULAR: S1 and S2 present. No murmurs, rubs, or gallops. PULMONARY: Chest is clear to auscultation, no wheezing or crackles. ABDOMEN: Soft, nontender, nondistended, normoactive bowel sounds. No palpable organomegaly. MUSCULOSKELETAL: No joint swelling or deformity. EXTREMITIES: No cyanosis, clubbing, or pedal edema. NEUROLOGICAL: Gross neurological examination did not reveal any focal deficits. SKIN: No rashes. Results CBC & Chem 7: 07/08/19 03:00 Labs: Abnormal Lab Results - Last 24 Hours (Table) 07/08/19 07/08/19 Range/Units 12:20 18:30 Urine Appearance Cloudy H (Clear) Urine Mucus Rare H (None) /hpf Urine Opiates Screen Detected H (NotDetected) Ur Amphetamines Screen Detected H (NotDetected) U Methamphetamines Scrn Detected H (NotDetected) U Benzodiazepines Scrn Detected H (NotDetected) Assessment and Plan Plan: -Acute psychosis and schizophrenia: Management as per primary service -Nicotine abuse: Counseling was provided -Medical marijuana and methamphetamine abuse: Counseling was provided as well. UTI ruled out, patient doesn't have any other medical complaints no further recommendations from medicine.
[2019-07-09] MEDS: DIVALPROEX ER 250 MG TAB.ER.24H PO SCH (21:19)
[2019-07-10] MEDS: VALBENAZINE TOSYLATE PO SCH (08:55)
--- NOTE | 2019-07-10 10:07 | P.PN ---
Progress Note - Text Interval history: The patient's found in her room she follows me to an interview room. She sits down and states she has "several worries". She refuses to specify further. She then states she wants to talk tomorrow and leaves the room. Staff reported she slept 7 hours. Reportedly she has been eating meals. She has not been attending groups. Mental status exam: The patient is a thin female appearing her stated age. She has a disheveled appearance hygiene grooming impaired she is wearing her eyeglasses. She is dressed in hospital gowns. Speech is fluent nonpressured she provides very limited answers. She terminates the session soon after begins. It is noticed that she continues to experience the tardive dyskin esia movements involving her upper extremities and trunk. She demonstrated no verbal or physical aggressiveness. Affect is flat. No other questions could be asked due to her terminating the session prematurely. Plan: Schizophrenia, stimulant methamphetamine and opioid use disorders, the patient will continue on her current psychotropic medication. We are allowing her time to stabilize. We have filed a demand for court ordered treatment. Vital signs reviewed. She is encouraged to participate in the milieu although she refuses. We will continue to monitor her for safety.
[2019-07-10] MEDS: INGREZZA 40 MG PO SCH (15:01)
[2019-07-10] MEDS: ACETAMINOPHEN TAB 325 MG TAB PO PRN (15:02)
[2019-07-10] MEDS: ZIPRASIDONE 20 MG VIAL IM PRN (18:48)
[2019-07-10] MEDS: DIVALPROEX ER 250 MG TAB.ER.24H PO SCH (22:06)
[2019-07-11] MEDS: INGREZZA 40 MG PO SCH (08:38)
[2019-07-11] MEDS: ACETAMINOPHEN TAB 325 MG TAB PO PRN (08:39)
--- NOTE | 2019-07-11 08:57 | P.PN ---
Progress Note - Text Interval history: The patient is found in her room she reluctantly follows me to an interview room. She indicates that she feels paranoid about the hold. She provides no specifics. She states she doesn't feel good in her whole body. Staff reported she slept last night. She indicates that she is eating meals. Otherwise she has been isolating in her room. Continues to report a feeling of fatigue. Again she is likely experiencing any symptoms due to her recent use of methamphetamine and most likely Adderall as well. She has no questions or concerns regarding her medication. She is due for her next Invega Sustenna injection next week. Mental status exam: The patient is alert she's wearing her eyeglasses she seated in the chair. She continues to demonstrate hip flexion of both lower extremities movement of her trunk and intermittent protrusion of her tongue. She speaks very softly and slowly. She demonstrates some psychomotor slowing in general. She reports no thoughts of wanting to harm herself or others. She demonstrates no verbal or physical aggressiveness. She continues to endorse paranoid thoughts in terms of delusional thought content. Again she gets up in terminates the session early before we could conclude today's interview. Plan: Continued schizophrenia in the context of methamphetamine, opioid and stimulant use disorders. We will continue her current psychotropic medication she is due for her next Invega Sustenna injection next week. Vital signs reviewed. We have requested a demand for hearing. She requires continued psychiatric hospitalization.
[2019-07-11] MEDS: ZIPRASIDONE 20 MG VIAL IM PRN (16:33)
[2019-07-11] MEDS: DIVALPROEX ER 250 MG TAB.ER.24H PO SCH (21:54)
[2019-07-12] MEDS: INGREZZA 40 MG PO SCH (08:16)
--- NOTE | 2019-07-12 09:46 | P.PN ---
Progress Note - Text Interval history: The patient's found in her room she follows me to an interview room. She states that she stressed but does not explain why. She has been eating. She continues to refuse group attendance. She has been compliant with medication on the mental health unit. She inquires into her court date and we discussed that further. Mental status exam: The patient is alert she has a disheveled appearance she is wearing her eyeglasses. She been wearing the same dressed for 3 days. Speech is fluent somewhat spontaneous. Each day she terminates the session early indicating she doesn't want to talk anymore. She continues to briefly describe a delusional thought content. She describes feeling tired. She demonstrates no verbal or physical aggressiveness. She is reporting no thoughts of harming herself or others. She does continue to demonstrate ongoing involuntary repetitive movement of her tongue in her lower extremities. The amplitude during this session was less than yesterday. Insight and judgment are poor. She was not oriented to time but is oriented to person and place. Plan: The patient will continue on her current psychotropic medications vital signs reviewed. She is encouraged to participate in the milieu. We will continue to monitor her for safety. I would expect her symptoms of psychosis to reduce as she continues to recover from her recent use of methamphetamine. She requires continued psychiatric hospitalization. Her court date is scheduled for July 23.
[2019-07-12] MEDS: ZIPRASIDONE 20 MG VIAL IM PRN (14:23)
[2019-07-12] MEDS ORDERED: BENZTROPINE 2 MG/2 ML AMP IM STA (17:57)
[2019-07-12] MEDS: DIVALPROEX ER 250 MG TAB.ER.24H PO SCH (21:20)
[2019-07-13] MEDS: INGREZZA 40 MG PO SCH (08:13)
--- NOTE | 2019-07-13 12:13 | P.PN ---
Progress Note - Text Interval history: The patient is found in her room she follows me to an interview room. She continues to isolate and not attend groups. She states that she has been eating meals. She has not showered in 2 days but is willing to shower today. In terms of her paranoid thinking she states that it mildly improved. She feels safe in the hospital but not outside of the hospital. She is endorsing no hallucinations today. She refuses to describe paranoid thoughts specifically. She again is uncomfortable in session and wants to terminate early but did remain in the room longer than the previous days Mental status exam: The patient is alert she has a disheveled appearance hygiene is impaired. She is wearing the same dressed that she's had on for several days. She is wearing her eyeglasses. Speech is fluent a little more spontaneous nonpressured. She reports feelings of paranoia but does not provide any specifics. She reports no suicidal or homicidal ideation. She demonstrates no verbal or physical aggressiveness. Her involuntary repetitive movements are decreased today. Insight and judgment remain impaired. Affect is blunted. Plan: The patient continues to have symptoms of psychosis. She is reporting some mild improvement. Typically takes several days for her to improve after using methamphetamine or Adderall. She will be due for her Invega Sustenna injection this week. We'll continue monitoring her for safety. We will draw a Depakote level tomorrow. Vital signs reviewed.
[2019-07-13] MEDS: DIVALPROEX ER 250 MG TAB.ER.24H PO SCH (20:36)
[2019-07-14] MEDS: INGREZZA 40 MG PO SCH (08:47)
--- NOTE | 2019-07-14 09:59 | P.PN ---
Progress Note - Text Interval history: The patient is found in her room she follows me to an interview room. She continues to isolate in her room other than for meals. He states she did take a shower yesterday. She reports still feeling safe on the mental health unit but still feeling unsafe outside of the hospital. She is reporting no physical pain or dizziness. She has no questions or concerns regarding her psychotropic medication. Again we discussed her use of substances and her recent relapse. Mental status exam: The patient is alert she is dressed in hospital gowns. Hygiene is improved. Eye contact is staring in nature. Speech is fluent nonspontaneous but she does provide answers to questions. She continues to demonstrate on protrusion movement of her lower extremities. She endorses continued paranoid thoughts but feels that they're gradually getting better. She demonstrates no verbal or physical aggressiveness. She maintains a bland affect throughout the session. Insight and judgment are impaired. She demonstrates no spontaneous tangential thinking loose associations or flight of ideas. Plan: The patient will continue on her current psychotropic medication. She is due for the Invega Sustenna injection tomorrow. Her Depakote level is 82.2 which is within the therapeutic range. Vital signs reviewed. We will continue to encourage participation in the milieu. We'll monitor her for safety. We are awaiting her full hearing date on July 23.
[2019-07-14] MEDS ORDERED: BENZTROPINE MESYLATE 1 MG TAB PO ONE (17:14)
[2019-07-14] MEDS: ACETAMINOPHEN TAB 325 MG TAB PO PRN (17:39)
[2019-07-14] MEDS: DIVALPROEX ER 250 MG TAB.ER.24H PO SCH (22:03)
[2019-07-15] MEDS: INGREZZA 40 MG PO SCH (08:13)
[2019-07-15] MEDS ORDERED: PALIPERIDONE IM 234 MG/1.5 ML SYG IM SCH (09:00)
--- NOTE | 2019-07-15 09:38 | P.PN ---
Progress Note - Text Interval history: The patient's found in her room she follows me to an interview room. She indicates that she attended 1 group yesterday. She states her mood is okay. She feels safe here but states she doesn't feel safe returning home yet. She does not specify why. She states "I'm just being paranoid". She continues to eat meals. We discussed the court hearing scheduled for this afternoon. She had no questions pertaining to the hearing. We discussed her continued use of methamphetamine and how to remain in remission. She d emonstrates little insight with that conversation. Mental status exam: The patient is a thin female appearing her stated age. She is dressed in [employer]. She has a disheveled appearance hygiene and fair. Eye contact intermittent. Speech is fluent she has little spontaneous speech but provides brief answers to questions asked. She is reporting no suicidal or homicidal thoughts. She is endorsing no auditory or visual hallucinations. She continues to endorse nonspecific paranoid thoughts. She indicates feeling safe in the hospital. Insight and judgment are impaired. She demonstrates no verbal or physical aggressiveness. She continues to demonstrate tardive dyskinesia in the form of tongue protrusion and movement of her lower extremities however the amplitude of the movements has decreased since being back on Ingrezza. Plan: The patient has received return to assist on injection this morning. We will await the result of the court hearing this afternoon. The patient seems to be very slowly improving in terms of her symptoms of psychosis. She set a goal of attending two groups today. Vital signs reviewed. We will continue to monitor her for safety.
[2019-07-15] MEDS: DIVALPROEX ER 250 MG TAB.ER.24H PO SCH (21:27)
[2019-07-16] MEDS: INGREZZA 40 MG PO SCH (08:47)
--- NOTE | 2019-07-16 09:03 | P.PN ---
Progress Note - Text Interval history: The patient's found in her room she follows me to an interview room. She indicates her mood is improving. She states she attended 2 groups yesterday. She has been eating meals. She has no questions or concerns regarding her medications. She states that she feels less tired during the day. Again me to discussed her use of substances and her plan for abstaining from them upon discharge. Mental status exam: The patient is alert she is dressed in her own clothing hygiene grooming fair. Eye contacts appropriate. She demonstrates a brighter affect she is more interactive in the session. She continues to demonstrate protrusion of her tongue and flexion movement of her lower extremities at the hip. She reports no suicidal or homicidal ideation. She is endorsing no auditory or visual hallucinations. I suspect she still has some paranoid thoughts but is not reporting those at this time. She demonstrates no verbal or physical aggressiveness.. Insight and judgment slowly improving but chronically limited given her diagnosis. Plan: The patient will continue on her current psychotropic medications. She is slowly stabilizing in terms of her acute psychotic symptoms. She may be appropriate for discharge by the end of the week. We will monitor her for safety and encourage full participation in the milieu. Vital signs reviewed.
[2019-07-16] MEDS: DIVALPROEX ER 250 MG TAB.ER.24H PO SCH (21:05)
[2019-07-17] MEDS: INGREZZA 40 MG PO SCH (08:44)
--- NOTE | 2019-07-17 09:11 | P.PN ---
Progress Note - Text Interval history: The patient is found in her room she follows me to an interview room. She reports that her mood is better. She did sleep throughout the night staff recorded at least 7 hours. She indicates she got up for breakfast this morning. She last showered yesterday. She has no questions or concerns regarding her psychotropic medication. She has been minimally participating in groups. She continues to refuse inpatient chemical dependency treatment. Mental status exam: The patient is alert she is dressed in her own clothing hygiene grooming adequate. Eye contact is staring in nature. She seated in the chair without any agitation however she continues to demonstrate continued involuntary repetitive movements involving her tongue and lower extremities. She is reporting no suicidal or homicidal ideation intent or plan. She is endorsing no auditory or visual hallucinations or any specific delusions. She reports having less paranoid thinking and feels safer. Insight and judgment chronically limited but improved from time of admission. Plan: The patient will continue on her current psychotropic medications. We will consider discharging her in the next 1-2 days depending on clinical progress. We will confirm that she is able to return to her prior residence. Vital signs reviewed. Her acute symptoms of psychosis are much improved.
[2019-07-17] MEDS: DIVALPROEX ER 250 MG TAB.ER.24H PO SCH (21:10)
[2019-07-18] MEDS: INGREZZA 40 MG PO SCH (08:12)
[2019-07-18] MEDS: hydrOXYzine PAMOATE 25 MG CAP PO PRN ×2 (09:55→21:49)
--- NOTE | 2019-07-18 10:59 | P.PN ---
Progress Note - Text Interval history: The patient is found in her room she follows me to an interview room. She indicates her mood is better. She is sleeping at night she indicates that she's been showering, appetite stable. She has no questions or concerns regarding her medications. She is beginning to attend more groups. Mental status exam: The patient is a female appearing her stated age. She presents with adequate hygiene grooming. Eye contacts appropriate. She has little spontaneous speech but does provide answers to questions. She demonstrates no verbal or physical aggressiveness she does continue to demonstrate movements related to her tardive dyskinesia. She is reporting no suicidal or homicidal ideation. She indicates that symptoms of psychosis continue to improve each day. She does continue to have a paranoid thought content however. She maintains a blunted affect. Plan: The patient will continue on her current medication. We discussed her care during treatment team. We will anticipate discharging her Sunday. She will have act team involvement on Sunday and has an appointment with her outpatient psychiatrist on that day as well. We are asking them to complete a petition and clinical certificate for substance use treatment. We will monitor the patient for safety she is encouraged to continue participating in the milieu. Vital signs reviewed.
[2019-07-18] MEDS: DIVALPROEX ER 250 MG TAB.ER.24H PO SCH (21:48)
[2019-07-19 06:39] VITALS: BP 105/58; PULSE 69; RESP 14; TEMP 97.9
[2019-07-19] MEDS: INGREZZA 40 MG PO SCH (09:14)
[2019-07-19] MEDS: hydrOXYzine PAMOATE 25 MG CAP PO PRN (11:40)
[2019-07-19] MEDS: DIVALPROEX ER 250 MG TAB.ER.24H PO SCH (20:42)
--- NOTE | 2019-07-19 20:48 | P.PN ---
Progress Note - Text Progress Note Date: 07/19/19 IDENTIFICATION DATA: 33-year-old single female who was admitted to the mental health unit for acute symptoms of psychosis. INTERVAL HISTORY: Patient was seen today. She stays isolated inside her room and sleeps most of the day. She says her goal is to get her life back together and to go back to room and board. She reports good appetite. Reports being compliant with her medications. No side effects reported. MENTAL STATUS EXAMINATION: 33-year old woman appears stated age in marginal grooming and hygine. Is alert and oriented 4. Mood is reported as ok and affect is constricted. Speech and thought processes are guarded. thought content is negative for suicidal or homicidal ideation. Denies auditory and visual hallucinations. Denies paranoid ideations. insight and judgment are improving Assessment Schizophrenia, stimulant use disorder, methamphetamine use disorder severe, opioid use disorder Plan Continue invega Sustena for psychosis Depakote ER 750 mg at bedtime and vistaril She continue to meet criteria for inpatient treatment of psychosis
[2019-07-20] MEDS: INGREZZA 40 MG PO SCH (10:33)
--- NOTE | 2019-07-20 14:28 | P.PN ---
Progress Note - Text Progress Note Date: 07/20/19 IDENTIFICATION DATA: 33-year-old single female who was admitted to the mental health unit for acute symptoms of psychosis. INTERVAL HISTORY: Patient was seen today. She says enjoys watching TV and arts and crafts. She reports going to only some groups and stays inside her room sleeping most of the time. She says she currently feels safe to go back to room and board. Tolerates medications well no side effects reported. MENTAL STATUS EXAMINATION: 33-year old woman appears stated age in marginal grooming and hygine. Is alert and oriented 4. Mood is reported as good and affect is constricted. Speech and thought processes are guarded. thought content is negative for suicidal or homicidal ideation. Denies auditory and visual hallucinations. Denies paranoid ideations. insight and judgment are improving Assessment Schizophrenia, stimulant use disorder, methamphetamine use disorder severe, opioid use disorder Plan Continue invega Sustena for psychosis Depakote ER 750 mg at bedtime and vistaril She continue to meet criteria for inpatient treatment of psychosis
[2019-07-20] MEDS: hydrOXYzine PAMOATE 25 MG CAP PO PRN (20:52)
[2019-07-20] MEDS: DIVALPROEX ER 250 MG TAB.ER.24H PO SCH (20:52)
[2019-07-21] MEDS: INGREZZA 40 MG PO SCH (08:58)
[2019-07-21] MEDS: hydrOXYzine PAMOATE 25 MG CAP PO PRN (10:07)
--- NOTE | 2019-07-21 10:07 | P.DS ---
Providers Date of admission: 07/08/19 12:13 Expected date of discharge: 07/21/19 Attending physician: Alek Hill Consults: 07/08/19 12:48 Consult Physician Routine Consulting Provider: Gianna Nye Consult Reason/Comments: History and physical Do you want consulting provider notified?: Yes Primary care physician: Vinnie Bueno - Discharge Diagnosis(es) (1) Schizophrenia Current Visit: Yes Status: Acute Priority: High (2) Methamphetamine use disorder, severe Current Visit: No Status: Acute Priority: High (3) Opioid use disorder Current Visit: No Status: Acute Priority: Medium (4) Stimulant use disorder Current Visit: No Status: Acute Priority: High Hospital Course: Brief summary of admission note: This patient is a 33-year-old single female who was admitted to the mental health unit for acute symptoms of psychosis. The patient was just recently on this mental health unit with her last admission being in 06/25/2019. She presents this time with a similar scenario. She presented with acute psychosis in the context of relapsing on methamphetamine and other substances. Her urine drug screen was positive for opioids, methamphetamine, and benzodiazepines. Her Depakote level was subtherapeutic. She has been receiving invega systemic injections. She has been refusing inpatient chemical dependency treatment. For full details please refer to my psychiatric evaluation dated 07/09/2019. Summary of hospital course: The patient was admitted to the mental health unit in voluntarily. She did have an existing deferral agreement in place. We requested a demand for hearing as she has been noncompliant with her medication specifically the Depakote. She does continue to use illicit drugs which precipitate and exacerbate her symptoms of psychosis. We feel this causes significant dysfunction and elevates her safety risk. The patient was seen by internal medicine for routine history and physical exam. Social work met with the patient to complete a psychosocial assessment and to begin discharge planning. The patient was continued on the Invega Sustenna she received her injection of 234 mg IM on 07/15/2019. We restarted the Depakote ER 750 mg at bedtime. After several days her Depakote level was measured at 82.2. Vistaril was used as needed for anxiety symptoms 50 mg up to every 8 hours as needed. Once in court the patient decided to stipulate to a full treatment order. We discussed the need for the patient to participate in inpatient chemical dependency treatment but she refuses With the [facility] mental health liaison we discussed having [facility] petition for court ordered chemical dependency treatment. In terms of her acute psychosis her symptoms did slowly improve over the course of this admission. She primarily isolated in her room other than for meals. Mental status exam: The patient is a thin female appearing her stated age. She is dressed in her own clothing. Hygiene and grooming are improved. She indicates her mood is fine. Affect is brighter than admission. She reports no suicidal or homicidal ideation intent or plan. She is reporting no hopelessness thinking. She reports no auditory or visual hallucinations. She endorses no specific delusions but she is typically known to have some paranoid thinking as part of her baseline function. Clearly her symptoms of psychosis are much improved from time of admission. We continue to feel that her symptoms of psychosis are exacerbated by her relapse of methamphetamine opiates benzos etc. She demonstrates no verbal or physical aggressiveness. She continues to demonstrate symptoms of tardive dyskinesia involving tongue protrusion and flexion of her lower extremities at her hips. Insight and judgment improved from time of admission but chronically impaired due to her diagnosis. Impressions 1. Schizophrenia stimulant use disorder, opioid use disorder Plan: The patient will be discharged mental health unit today. She will return to her room and board residence. She will continue following with [facility] and is now on an existing treatment order. She has an appointment with her outpatient psychiatrist today. We are asking that a petition for chemical dependency treatment be filed. The patient will continue on invega systemic 234 mg IM every 28 days next dose is due 08/12/2019. She will continue on Depakote ER 750 mg at bedtime. She will continue Ingrezza 40 mg daily. Consider titrating the Ingrezza dose further. At length we discussed the importance of her abstaining from alcohol marijuana and all other illicit drugs. We discussed that these will precipitate symptoms of psychosis and elevate her safety risk. She continues to refuse referral for inpatient chemical dependency treatment or any medication specifically targeting substance use. At this time she is stabilized in terms of her symptoms of psychosis there is no imminent safety risk. She is instructed to return to the hospital with any acute safety risks. Her guardian has been involved in treatment and discharge planning. Patient Condition at Discharge: Stable Plan - Discharge Summary New Discharge Prescriptions: Continue Valbenazine Tosylate [Ingrezza] 40 mg PO DAILY Divalproex ER [Depakote ER] 750 mg PO HS #45 tab.er.24h Paliperidone IM [Invega Sustenna] 234 mg IM Q28D #1 ml Discontinued traZODone HCL 200 mg PO HS Discharge Medication List Valbenazine Tosylate [Ingrezza] 40 mg PO DAILY 06/23/19 [History] Divalproex ER [Depakote ER] 750 mg PO HS #45 tab.er.24h 07/21/19 [Rx] Paliperidone IM [Invega Sustenna] 234 mg IM Q28D #1 ml 07/21/19 [Rx] Follow up Appointment(s)/Referral(s): [facility] [Outside] - 07/21/19 4:40 pm (07-21-19 @ 4:[address] Weller) Myles Birmingham MD [Primary Care Provider] - 1-2 days
== END 2019-07-21 14:54 | disposition home or self-care (01) | DRG 885 ==
LOC: EC 22:54 → 3MHU 07-08 12:13
PROVIDERS: ADMIT Psychiatry & Neurology Psychiatry; ATTEND Psychiatry & Neurology Psychiatry
DX: F20.9 Schizophrenia, unspecified (principal); Z91.14 Patient's other noncompliance with medication regimen; Z79.899 Other long term (current) drug therapy; F17.200 Nicotine dependence, unspecified, uncomplicated; F15.99 Other stimulant use, unspecified with unspecified stimulant-induced disorder; F11.99 Opioid use, unspecified with unspecified opioid-induced disorder; Z88.2 Allergy status to sulfonamides
CPT/HCPCS: 36415; 80164; 80306; 81001; 81025; 82075; 84443; 85025; 93005; 99285

== ENCOUNTER 2020-08-30 13:38 | Emergency (ER) | payer MEDICARE, OTHER ==
[2020-08-30 13:51] VITALS: RESP 18
[2020-08-30] MEDS ORDERED: BENZTROPINE 2 MG/2 ML AMP IM STA (13:57)
[2020-08-30] MEDS ORDERED: SODIUM CHLORIDE 0.9% 1,000 ML IV STA (14:10)
--- NOTE | 2020-08-30 14:11 | ED ---
General Adult HPI - General Source: patient Mode of arrival: ambulatory Limitations: no limitations <Carson Mclaughlin - Last Filed: 08/30/20 15:02> <Philip Chun - Last Filed: 08/30/20 16:50> - General Chief complaint: Recheck/Abnormal Lab/Rx Stated complaint: Mental Health Time Seen by Provider: 08/30/20 13:56 - History of Present Illness Initial comments: Dictation was produced using [employer] dictation software. please excuse any grammatical, word or spelling errors. This patient was cared for during a federal and state declared state of emergency secondary to Covid 19 Chief Complaint: 35-year-old female presents today for possible extrapyramidal symptoms History of Present Illness: 35-year-old female presents today with her [facility] counselor. CBC also is concerned about EPS reactions. She is recently started on new medications. She reports that her psychiatrist tried to manage her outpatient EPS reaction with other medications however unsuccessful. Patient has not tried to take Cogentin. Patient states she feels stiff. Counselor knows that she has cold-like characteristics to her hand and that she feels mildly stiff. Tonsils concerned about her well-being. She is a typically very artistic individual person and urinalysis clearly abnormal for her. The ROS documented in this emergency department record has been reviewed and confirmed by me. Those systems with pertinent positive or negative responses have been documented in the HPI. All other systems are other negative and/or noncontributory. PHYSICAL EXAM: General Impression: Alert and oriented x3, not in acute distress, tremulous HEENT: Normocephalic atraumatic, extra-ocular movements intact, pupils equal and reactive to light bilaterally, mucous membranes moist. Cardiovascular: Heart regular rate and rhythm Chest: Able to complete full sentences, no retractions, no tachypnea Abdomen: abdomen soft, non-tender, non-distended, no organomegaly Musculoskeletal: Pulses present and equal in all extremities, no peripheral edema, mild rigidity with passive range of motion to the upper extremity, no clonus Neurological: CN II-XII grossly intact, no focal motor or sensory deficits noted, is all showing is grossly Skin: Intact with no visualized rashes Psych: Normal affect and mood ED course: 68-year-old female brought by her [facility] counselor for concerns of extraparametal reaction. Vital signs upon arrival shows heart rate of 120, so vital signs within acceptable limits. Laboratory evaluation obtained. CBC, metabolic panel, electrolytes are negative. Patient reports slight improvement with administration of Cogentin. Patient also given diphenhydramine. Patient care signed out to Dr. Chun. (Carson Mclaughlin) - Related Data Home Medications Medication Instructions Recorded Confirmed Divalproex ER [Depakote ER] See Taper PO HS 08/30/20 08/30/20 Gabapentin 300 mg PO TID 08/30/20 08/30/20 Mirtazapine [Remeron] 15 mg PO HS 08/30/20 08/30/20 amantadine HCL [Amantadine] 100 mg PO TID 08/30/20 08/30/20 rOPINIRole HCL [Requip] 1 mg PO QID 08/30/20 08/30/20 Previous Rx's Medication Instructions Recorded Benztropine Mesylate [Cogentin] 1 mg PO DAILY #7 tablet 08/30/20 Allergies Allergy/AdvReac Type Severity Reaction Status Date / Time Sulfa (Sulfonamide Allergy Rash/Hives Verified 08/30/20 15:48 Antibiotics) Review of Systems ROS Other: All systems not noted in ROS Statement are negative. <Carson Mclaughlin - Last Filed: 08/30/20 15:02> ROS Other: All systems not noted in ROS Statement are negative. <Philip Chun - Last Filed: 08/30/20 16:50> ROS Statement: Those systems with pertinent positive or pertinent negative responses have been documented in the HPI. Past Medical History Past Medical History: No Reported History Additional Past Medical History / Comment(s): due to acute psychosis History of Any Multi-Drug Resistant Organisms: None Reported Past Surgical History: No Surgical Hx Reported Additional Past Surgical History / Comment(s): xray of the left forearm shows evidence of open reduction and internal fixation of old fracture of the L forearm Past Anesthesia/Blood Transfusion Reactions: No Reported Reaction Past Psychological History: Schizophrenia Smoking Status: Current every day smoker Past Alcohol Use History: None Reported Past Drug Use History: None Reported, Methamphetamine - Past Family History Father Family Medical History: No Reported History Additional Family Medical History / Comment(s): Age 52 Mother Family Medical History: No Reported History Additional Family Medical History / Comment(s): Age 52 <Carson Mclaughlin - Last Filed: 08/30/20 15:02> General Exam Limitations: no limitations <Carson Mclaughlin - Last Filed: 08/30/20 15:02> Course Vital Signs 08/30/20 08/30/20 08/30/20 13:48 14:45 15:29 Temperature 98 F Pulse Rate 128 H 109 H 64 Respiratory 18 18 18 Rate Blood Pressure 109/79 129/85 92/67 O2 Sat by Pulse 96 96 99 Oximetry Medical Decision Making - Lab Data Result diagrams: 08/30/20 14:28 08/30/20 14:28 <Carson Mclaughlin - Last Filed: 08/30/20 15:02> - Lab Data Result diagrams: 08/30/20 14:28 08/30/20 14:28 <Philip Chun - Last Filed: 08/30/20 16:50> - Medical Decision Making Patient seen by mental health services. Psychiatrist did recommend holding Requip and amantadine and prescribing Cogentin. Patient will follow up with [facility]. Counselors present. They're comfortable with discharge home (Philip Chun) - Lab Data Lab Results 08/30/20 08/30/20 08/30/20 Range/Units 14:28 14:28 14:28 WBC 6.2 (3.8-10.6) k/uL RBC 4.58 (3.80-5.40) m/uL Hgb 13.8 (11.4-16.0) gm/dL Hct 41.4 (34.0-46.0) % MCV 90.5 (80.0-100.0) fL MCH 30.2 (25.0-35.0) pg MCHC 33.4 (31.0-37.0) g/dL RDW 12.5 (11.5-15.5) % Plt Count 305 (150-450) k/uL MPV 6.4 Neutrophils % 75 % Lymphocytes % 17 % Monocytes % 5 % Eosinophils % 1 % Basophils % 1 % Neutrophils # 4.7 (1.3-7.7) k/uL Lymphocytes # 1.1 (1.0-4.8) k/uL Monocytes # 0.3 (0-1.0) k/uL Eosinophils # 0.0 (0-0.7) k/uL Basophils # 0.1 (0-0.2) k/uL Sodium 140 (137-145) mmol/L Potassium 4.3 (3.5-5.1) mmol/L Chloride 106 (98-107) mmol/L Carbon Dioxide 25 (22-30) mmol/L Anion Gap 9 mmol/L BUN 15 (7-17) mg/dL Creatinine 0.69 (0.52-1.04) mg/dL Est GFR (CKD-EPI)AfAm >90 (>60 ml/min/1.73 sqM) Est GFR (CKD-EPI)NonAf >90 (>60 ml/min/1.73 sqM) Glucose 129 H (74-99) mg/dL Calcium 10.0 (8.4-10.2) mg/dL Ionized Calcium Shadia 5.1 (4.5-5.3) mg/dL Magnesium 1.9 (1.6-2.3) mg/dL Valproic Acid 29.9 ug/mL Disposition <Carson Mclaughlin - Last Filed: 08/30/20 15:02> Is patient prescribed a controlled substance at d/c from ED?: No Time of Disposition: 16:50 <Philip Chun - Last Filed: 08/30/20 16:50> Clinical Impression: Medication reaction Disposition: HOME SELF-CARE Condition: Stable Instructions (If sedation given, give patient instructions): Extrapyramidal Symptoms (ED) Additional Instructions: Prescription sent to [facility]. Please follow-up with [facility] in the next day or 2 for recheck and further recommendations. Hold Requip and amantadine. Return for shaking, loss of control of muscle function, thoughts of self-harm or harming others, worsening symptoms or other concerns Prescriptions: Benztropine Mesylate [Cogentin] 1 mg PO DAILY #7 tablet Referrals: Myles Birmingham MD [Primary Care Provider] - 1-2 days
[2020-08-30 14:39] LABS: Basophils # (A) 0.1 k/uL (0-0.2); Basophils % (A) 1 %; Eosinophils % (A) 1 %; HCT 41.4 % (34.0-46.0); HGB 13.8 gm/dL (11.4-16.0); Lymphocytes # (A) 1.1 k/uL (1.0-4.8); Lymphocytes % (A) 17 %; MCH 30.2 pg (25.0-35.0); MCHC 33.4 g/dL (31.0-37.0); MCV 90.5 fL (80.0-100.0); Mean Platelet Volume 6.4; Monocytes # (A) 0.3 k/uL (0-1.0); Monocytes % (A) 5 %; Neutrophils # (A) 4.7 k/uL (1.3-7.7); Neutrophils % (A) 75 %; Platelet Count 305 k/uL (150-450); RBC 4.58 m/uL (3.80-5.40); RDW 12.5 % (11.5-15.5); WBC 6.2 k/uL (3.8-10.6)
[2020-08-30 14:42] LABS: Ionized Calcium 5.1 mg/dL (4.5-5.3)
[2020-08-30 14:49] LABS: African American GFR (CKD) >90 (>60 ml/min/1.73 sqM); Anion Gap 9 mmol/L; Blood Urea Nitrogen 15 mg/dL (7-17); Carbon Dioxide 25 mmol/L (22-30); Chloride 106 mmol/L (98-107); Glucose 129 mg/dL (74-99); Magnesium 1.9 mg/dL (1.6-2.3); Non-African American GFR(CKD) >90 (>60 ml/min/1.73 sqM); Potassium 4.3 mmol/L (3.5-5.1); Sodium 140 mmol/L (137-145)
[2020-08-30] MEDS ORDERED: diphenhydrAMINE 50 MG/ML 1 ML VIAL IVP STA (14:57)
[2020-08-30 17:05] VITALS: BP 110/88; PULSE 76; TEMP 98
== END 2020-08-30 17:05 | disposition home or self-care (01) ==
LOC: EC 13:38
DX: R82.90 Unspecified abnormal findings in urine (principal); T50.905A Adverse effect of unspecified drugs, medicaments and biological substances, initial encounter; F17.200 Nicotine dependence, unspecified, uncomplicated; Z79.899 Other long term (current) drug therapy; Z88.2 Allergy status to sulfonamides
CPT/HCPCS: 82075; 36415; 93005; 80164; 80048; 82330; 83735; 85025; 99284; 96374; 96361 ×2; 96372; J1200; J0515

== ENCOUNTER 2021-12-01 22:48 | Inpatient (IN) | payer MEDICARE, MEDICAID ==
[2021-12-01] MEDS ORDERED: SODIUM CHLORIDE 0.9% 1,000 ML IV STA (23:02)
--- NOTE | 2021-12-01 23:04 | ED ---
Altered Mental Status HPI - General Chief Complaint: Altered Mental Status Stated Complaint: Altered Mental Status Time Seen by Provider: 12/01/21 22:52 Source: patient, EMS, RN notes reviewed, old records reviewed Mode of arrival: EMS Limitations: no limitations - History of Present Illness Initial Comments: This is a 28-year-old female presents by police department on pickup for psychiatric evaluation. Patient appears to be refusing to participate in history taking currently. Patient was brought to Hospital due to low oxygen level oxygen is currently find patient has no difficulty breathing. Again patient refuses to answer questions aside to complain of left wrist pain MD Complaint: altered mental status, confusion, decreased responsiveness -: unknown Severity: moderate Consistency of Symptoms: constant Context: alcohol abuse Associated Symptoms: denies other symptoms Treatments Prior to Arrival: oxygen - Related Data Home Medications Medication Instructions Recorded Confirmed Mirtazapine [Remeron] 15 mg PO HS 08/30/20 12/01/21 Benztropine Mesylate [Cogentin] 1 mg PO BID PRN 12/01/21 12/01/21 Gabapentin [Neurontin] 400 mg PO TID 12/01/21 12/01/21 Paliperidone [Paliperidone ER] 9 mg PO HS 12/01/21 12/01/21 Allergies Allergy/AdvReac Type Severity Reaction Status Date / Time Sulfa (Sulfonamide Allergy Rash/Hives Verified 12/01/21 23:12 Antibiotics) Review of Systems ROS Statement: Those systems with pertinent positive or pertinent negative responses have been documented in the HPI. ROS Other: All systems not noted in ROS Statement are negative. Past Medical History Past Medical History: No Reported History Additional Past Medical History / Comment(s): due to acute psychosis History of Any Multi-Drug Resistant Organisms: None Reported Past Surgical History: No Surgical Hx Reported Additional Past Surgical History / Comment(s): xray of the left forearm shows evidence of open reduction and internal fixation of old fracture of the L forearm Past Anesthesia/Blood Transfusion Reactions: No Reported Reaction Past Psychological History: Schizophrenia Smoking Status: Current every day smoker Past Alcohol Use History: None Reported Past Drug Use History: None Reported, Methamphetamine - Past Family History Father Family Medical History: No Reported History Additional Family Medical History / Comment(s): Age 52 Mother Family Medical History: No Reported History Additional Family Medical History / Comment(s): Age 52 General Exam Limitations: altered mental status General appearance: alert, in no apparent distress Head exam: Present: atraumatic, normocephalic, normal inspection Eye exam: Present: normal appearance, PERRL, EOMI. Absent: scleral icterus, conjunctival injection, periorbital swelling ENT exam: Present: normal exam, mucous membranes moist Neck exam: Present: normal inspection. Absent: tenderness, meningismus, lymphadenopathy Respiratory exam: Present: normal lung sounds bilaterally. Absent: respiratory distress, wheezes, rales, rhonchi, stridor Cardiovascular Exam: Present: regular rate, normal rhythm, normal heart sounds. Absent: systolic murmur, diastolic murmur, rubs, gallop, clicks GI/Abdominal exam: Present: soft, normal bowel sounds. Absent: distended, tenderness, guarding, rebound, rigid Extremities exam: Present: normal inspection, full ROM, normal capillary refill. Absent: tenderness, pedal edema, joint swelling, calf tenderness Back exam: Present: normal inspection Neurological exam: Present: alert, oriented X3, CN II-XII intact Psychiatric exam: Present: normal affect, normal mood Skin exam: Present: warm, dry, intact, normal color. Absent: rash Course Vital Signs 12/01/21 12/01/21 22:50 23:42 Temperature 98.2 F Pulse Rate 116 H 121 H Respiratory 20 18 Rate Blood Pressure 126/88 O2 Sat by Pulse 97 97 Oximetry - Reevaluation(s) Reevaluation #1: 12/02/21 00:47 Medical records reviewed Medical Decision Making - Medical Decision Making 36 female seen and evaluated psychiatry, patient be admitted for psychiatric evaluation and treatment - Lab Data Result diagrams: 12/01/21 23:17 12/01/21 23:17 Lab Results 12/01/21 12/01/21 12/01/21 Range/Units 23:17 23:17 23:26 WBC 11.3 H (3.8-10.6) k/uL RBC 4.55 (3.80-5.40) m/uL Hgb 13.5 (11.4-16.0) gm/dL Hct 41.1 (34.0-46.0) % MCV 90.3 (80.0-100.0) fL MCH 29.6 (25.0-35.0) pg MCHC 32.8 (31.0-37.0) g/dL RDW 12.3 (11.5-15.5) % Plt Count 393 (150-450) k/uL MPV 6.9 Neutrophils % 67 % Lymphocytes % 24 % Monocytes % 6 % Eosinophils % 1 % Basophils % 1 % Neutrophils # 7.6 (1.3-7.7) k/uL Lymphocytes # 2.7 (1.0-4.8) k/uL Monocytes # 0.7 (0-1.0) k/uL Eosinophils # 0.2 (0-0.7) k/uL Basophils # 0.1 (0-0.2) k/uL Sodium 136 L (137-145) mmol/L Potassium 3.8 (3.5-5.1) mmol/L Chloride 102 (98-107) mmol/L Carbon Dioxide 20 L (22-30) mmol/L Anion Gap 14 mmol/L BUN 9 (7-17) mg/dL Creatinine 0.73 (0.52-1.04) mg/dL Est GFR (CKD-EPI)AfAm >90 (>60 ml/min/1.73 sqM) Est GFR (CKD-EPI)NonAf >90 (>60 ml/min/1.73 sqM) Glucose 98 (74-99) mg/dL Calcium 9.0 (8.4-10.2) mg/dL Total Bilirubin 0.3 (0.2-1.3) mg/dL AST 24 (14-36) U/L ALT 20 (4-34) U/L Alkaline Phosphatase 110 (38-126) U/L Total Protein 6.9 (6.3-8.2) g/dL Albumin 4.1 (3.5-5.0) g/dL Urine Color Colorless Urine Appearance Clear (Clear) Urine pH 6.5 (5.0-8.0) Ur Specific [place] 1.001 (1.001-1.035) Urine Protein Negative (Negative) Urine Glucose (UA) Negative (Negative) Urine Ketones Negative (Negative) Urine Blood Negative (Negative) Urine Nitrite Negative (Negative) Urine Bilirubin Negative (Negative) Urine Urobilinogen <2.0 (<2.0) mg/dL Ur Leukocyte Esterase Negative (Negative) Urine HCG, Qual (Not Detectd) Salicylates <1.0 mg/dL Urine Opiates Screen Not Detected (NotDetected) Ur Oxycodone Screen Not Detected (NotDetected) Urine Methadone Screen Not Detected (NotDetected) Ur Propoxyphene Screen Not Detected (NotDetected) Acetaminophen <10.0 ug/mL Ur Barbiturates Screen Not Detected (NotDetected) U Tricyclic Antidepress Not Detected (NotDetected) Ur Phencyclidine Scrn Not Detected (NotDetected) Ur Amphetamines Screen Not Detected (NotDetected) U Methamphetamines Scrn Not Detected (NotDetected) U Benzodiazepines Scrn Not Detected (NotDetected) Urine Cocaine Screen Not Detected (NotDetected) U Marijuana (THC) Screen Not Detected (NotDetected) Serum Alcohol 133 mg/dL 12/01/21 Range/Units 23:26 WBC (3.8-10.6) k/uL RBC (3.80-5.40) m/uL Hgb (11.4-16.0) gm/dL Hct (34.0-46.0) % MCV (80.0-100.0) fL MCH (25.0-35.0) pg MCHC (31.0-37.0) g/dL RDW (11.5-15.5) % Plt Count (150-450) k/uL MPV Neutrophils % % Lymphocytes % % Monocytes % % Eosinophils % % Basophils % % Neutrophils # (1.3-7.7) k/uL Lymphocytes # (1.0-4.8) k/uL Monocytes # (0-1.0) k/uL Eosinophils # (0-0.7) k/uL Basophils # (0-0.2) k/uL Sodium (137-145) mmol/L Potassium (3.5-5.1) mmol/L Chloride (98-107) mmol/L Carbon Dioxide (22-30) mmol/L Anion Gap mmol/L BUN (7-17) mg/dL Creatinine (0.52-1.04) mg/dL Est GFR (CKD-EPI)AfAm (>60 ml/min/1.73 sqM) Est GFR (CKD-EPI)NonAf (>60 ml/min/1.73 sqM) Glucose (74-99) mg/dL Calcium (8.4-10.2) mg/dL Total Bilirubin (0.2-1.3) mg/dL AST (14-36) U/L ALT (4-34) U/L Alkaline Phosphatase (38-126) U/L Total Protein (6.3-8.2) g/dL Albumin (3.5-5.0) g/dL Urine Color Urine Appearance (Clear) Urine pH (5.0-8.0) Ur Specific [place] (1.001-1.035) Urine Protein (Negative) Urine Glucose (UA) (Negative) Urine Ketones (Negative) Urine Blood (Negative) Urine Nitrite (Negative) Urine Bilirubin (Negative) Urine Urobilinogen (<2.0) mg/dL Ur Leukocyte Esterase (Negative) Urine HCG, Qual Not Detected (Not Detectd) Salicylates mg/dL Urine Opiates Screen (NotDetected) Ur Oxycodone Screen (NotDetected) Urine Methadone Screen (NotDetected) Ur Propoxyphene Screen (NotDetected) Acetaminophen ug/mL Ur Barbiturates Screen (NotDetected) U Tricyclic Antidepress (NotDetected) Ur Phencyclidine Scrn (NotDetected) Ur Amphetamines Screen (NotDetected) U Methamphetamines Scrn (NotDetected) U Benzodiazepines Scrn (NotDetected) Urine Cocaine Screen (NotDetected) U Marijuana (THC) Screen (NotDetected) Serum Alcohol mg/dL - EKG Data -: EKG Interpreted by Me (EKG is sinus rhythm 88 HI 136 QRS 100 QTc 4:15) Disposition Clinical Impression: Altered mental status, Acute psychosis, Substance abuse Disposition: TRANSFER TO PSYCH HOSP/UNIT Condition: Fair Is patient prescribed a controlled substance at d/c from ED?: No Referrals: Myles Birmingham MD [Primary Care Provider] - 1-2 days
[2021-12-01] MEDS ORDERED: diphenhydrAMINE 50 MG/ML 1 ML VIAL IVP STA (23:09)
[2021-12-01 23:28] LABS: Basophils # (A) 0.1 k/uL (0-0.2); Basophils % (A) 1 %; Eosinophils # (A) 0.2 k/uL (0-0.7); Eosinophils % (A) 1 %; HCT 41.1 % (34.0-46.0); HGB 13.5 gm/dL (11.4-16.0); Lymphocytes # (A) 2.7 k/uL (1.0-4.8); Lymphocytes % (A) 24 %; MCH 29.6 pg (25.0-35.0); MCHC 32.8 g/dL (31.0-37.0); MCV 90.3 fL (80.0-100.0); Mean Platelet Volume 6.9; Monocytes # (A) 0.7 k/uL (0-1.0); Monocytes % (A) 6 %; Neutrophils # (A) 7.6 k/uL (1.3-7.7); Neutrophils % (A) 67 %; Platelet Count 393 k/uL (150-450); RBC 4.55 m/uL (3.80-5.40); RDW 12.3 % (11.5-15.5); WBC 11.3 k/uL (3.8-10.6)
--- NOTE | 2021-12-01 23:47 | XR ---
EXAMINATION TYPE: XR chest 1V portable DATE OF EXAM: 12/01/2021 COMPARISON: NONE HISTORY: Short of breath TECHNIQUE: Single view FINDINGS: Heart is normal. Lungs are clear of infiltrate. There is no heart failure. There are no hil ar masses. Bony thorax is intact. IMPRESSION: Normal chest.
--- NOTE | 2021-12-01 23:49 | XR ---
EXAMINATION TYPE: XR wrist complete LT DATE OF EXAM: 12/01/2021 COMPARISON: NONE HISTORY: Pain TECHNIQUE: 4 views FINDINGS: There is a plate with screws fixating the distal radius. I see no fracture nor dislocation. The carpal bones appear intact. Metacarpals are intact. IMPRESSION: Old distal radius fracture. No acute bony abnormality.
[2021-12-01 23:51] LABS: ALT 20 U/L (4-34); AST 24 U/L (14-36); Acetaminophen <10.0 ug/mL; African American GFR (CKD) >90 (>60 ml/min/1.73 sqM); Albumin 4.1 g/dL (3.5-5.0); Alkaline Phosphatase 110 U/L (38-126); Anion Gap 14 mmol/L; Blood Urea Nitrogen 9 mg/dL (7-17); Carbon Dioxide 20 mmol/L (22-30); Chloride 102 mmol/L (98-107); Glucose 98 mg/dL (74-99); Non-African American GFR(CKD) >90 (>60 ml/min/1.73 sqM); Potassium 3.8 mmol/L (3.5-5.1); Salicylate <1.0 mg/dL; Sodium 136 mmol/L (137-145); Total Bilirubin 0.3 mg/dL (0.2-1.3); Total Protein 6.9 g/dL (6.3-8.2)
[2021-12-01 23:51] LABS: Appearance,Urine Clear (Clear); Bilirubin,Urine Negative (Negative); Blood,Urine Negative (Negative); Color,Urine Colorless; Glucose,Urine (UA) Negative (Negative); Ketones,Urine Negative (Negative); Leukocyte Esterase,Urine Negative (Negative); Nitrite,Urine Negative (Negative); PH, Urine 6.5 (5.0-8.0); Protein,Urine Negative (Negative); Specific Gravity,Urine 1.001 (1.001-1.035); Urobilinogen,Urine <2.0 mg/dL (<2.0)
[2021-12-01 23:56] LABS: Alcohol 133 mg/dL
[2021-12-01 23:59] LABS: Amphetamine Screen,Urine Not Detected (NotDetected); Barbiturate Screen,Urine Not Detected (NotDetected); Benzodiazepines Screen,Urine Not Detected (NotDetected); Cocaine Screen,Urine Not Detected (NotDetected); Methadone Screen, Urine Not Detected (NotDetected); Opiate Screen,Urine Not Detected (NotDetected); Oxycodone Screen, Urine Not Detected (NotDetected); Phencyclidine Screen,Urine Not Detected (NotDetected); Tricyclic Antidepressant,Urine Not Detected (NotDetected); Urn Cannabinoid Scrn Not Detected (NotDetected)
[2021-12-02] MEDS ORDERED: LORazepam 1 MG TAB PO STA (00:56)
[2021-12-02] MEDS ORDERED: MAG HYDROX/AL HYDROX/SIMETH 30 ML CUP PO PRN (05:15)
[2021-12-02] MEDS ORDERED: ACETAMINOPHEN TAB 325 MG TAB PO PRN (05:15)
[2021-12-02] MEDS ORDERED: MAGNESIUM HYDROXIDE 2,400 MG/10 ML CUP PO PRN (05:15)
[2021-12-02] MEDS ORDERED: HALOPERIDOL LACTATE 5 MG/ML 1 ML VIAL IM PRN (05:15)
[2021-12-02] MEDS ORDERED: LORazepam 2 MG/ML INJ IM PRN (05:19)
[2021-12-02] MEDS ORDERED: haloperidoL 5 MG TAB PO PRN (05:20)
[2021-12-02] MEDS: NICOTINE 14MG/24HR PATCH TRANSDERM SCH (08:52)
[2021-12-02] MEDS: LORazepam 1 MG TAB PO PRN (08:52)
--- NOTE | 2021-12-02 10:57 | P.CONS ---
History of Present Illness - Reason for Consult Medical clearance - History of Present Illness 36-year-old female admitted the for acute psychosis. Patient has a leukocytosis of 20 patient was bit hypoxic when she came to the ER. Presently not hypoxic and all the workup is negative. Patient also had a wrist x-ray which showed old radius fracture. Patient does have leukocytosis without any evidence of infection at this time. Urinalysis and chest x-ray are essentially within normal limits COVID-19 PCR is negative. Patient denied any complaints at this time. Patient states he's she smokes 1-2 cigarettes a day. REVIEW OF SYSTEMS: CONSTITUTIONAL: No fever, no malaise, no fatigue. HEENT: No recent visual problems or hearing problems. Denied any sore throat. CARDIOVASCULAR: No chest pain, orthopnea, PND, no palpitations, no syncope. PULMONARY: No shortness of breath, no cough, no hemoptysis. GASTROINTESTINAL: No diarrhea, no nausea, no vomiting, no abdominal pain. NEUROLOGICAL: No headaches, no weakness, no numbness. HEMATOLOGICAL: Denies any bleeding or petechiae. GENITOURINARY: Denies any burning micturition, frequency, or urgency. MUSCULOSKELETAL/RHEUMATOLOGICAL: Denies any joint pain, swelling, or any muscle pain. ENDOCRINE: Denies any polyuria or polydipsia. The rest of the 14-point review of systems is negative. PHYSICAL EXAMINATION: GENERAL: The patient is alert and oriented x3, not in any acute distress. Well developed, well nourished. HEENT: Pupils are round and equally reacting to light. EOMI. No scleral icterus. No conjunctival pallor. Normocephalic, atraumatic. No pharyngeal erythema. No thyromegaly. CARDIOVASCULAR: S1 and S2 present. No murmurs, rubs, or gallops. PULMONARY: Chest is clear to auscultation, no wheezing or crackles. ABDOMEN: Soft, nontender, nondistended, normoactive bowel sounds. No palpable organomegaly. MUSCULOSKELETAL: No joint swelling or deformity. EXTREMITIES: No cyanosis, clubbing, or pedal edema. NEUROLOGICAL: Gross neurological examination did not reveal any focal deficits. SKIN: No rashes. Assessment and plan Leukocytosis reactive no further workup is needed at this time -Mild metabolic acidosis probably secondary to dehydration patient to be increased to drink water -Mild hyponatremia secondary to dehydration -Acute psychosis management as per primary service -Nicotine use: Counseling was provided Past Medical History Past Medical History: No Reported History Additional Past Medical History / Comment(s): due to acute psychosis History of Any Multi-Drug Resistant Organisms: None Reported Past Surgical History: No Surgical Hx Reported Additional Past Surgical History / Comment(s): xray of the left forearm shows evidence of open reduction and internal fixation of old fracture of the L forearm Past Anesthesia/Blood Transfusion Reactions: No Reported Reaction Past Psychological History: Schizophrenia Smoking Status: Current every day smoker Past Alcohol Use History: None Reported Additional Past Alcohol Use History / Comment(s): She states she is smoking 10 cigarettes per day. She does use medical marijuana infrequently. She denies any street drug use. She is unemployed but is worked in [employer] in the past. She does not have any children. She has no siblings. Past Drug Use History: None Reported, Methamphetamine - Past Family History Father Family Medical History: No Reported History Additional Family Medical History / Comment(s): Age 52 Mother Family Medical History: No Reported History Additional Family Medical History / Comment(s): Age 52 Medications and Allergies Home Medications Medication Instructions Recorded Confirmed Type Mirtazapine [Remeron] 15 mg PO HS 08/30/20 12/02/21 History Benztropine Mesylate [Cogentin] 1 mg PO BID PRN 12/01/21 12/02/21 History Gabapentin [Neurontin] 400 mg PO TID 12/01/21 12/02/21 History Paliperidone [Paliperidone ER] 9 mg PO HS 12/01/21 12/02/21 History Allergies Allergy/AdvReac Type Severity Reaction Status Date / Time Sulfa (Sulfonamide Allergy Rash/Hives Verified 12/02/21 05:38 Antibiotics) Physical Exam Vitals: Vital Signs Temp Pulse Pulse Resp BP BP Pulse Ox 12/02/21 05:20 98.0 F 98 15 121/77 100 12/01/21 23:42 121 H 18 97 12/01/21 22:50 98.2 F 116 H 20 126/88 97 Intake and Output 12/01/21 12/02/21 12/02/21 22:59 06:59 14:59 Other: Weight 72.575 kg 68.634 kg Results CBC & Chem 7: 12/01/21 23:17 12/01/21 23:17 Labs: Abnormal Lab Results - Last 24 Hours (Table) 12/01/21 12/01/21 Range/Units 23:17 23:17 WBC 11.3 H (3.8-10.6) k/uL Sodium 136 L (137-145) mmol/L Carbon Dioxide 20 L (22-30) mmol/L
--- NOTE | 2021-12-02 12:29 | P.HP ---
Psychiatric H&P - . H&P Date: 12/02/21 History & Physical: Allergies Allergy/AdvReac Type Severity Reaction Status Date / Time Sulfa (Sulfonamide Allergy Rash/Hives Verified 12/02/21 05:38 Antibiotics) Vital Signs Temp 98.0 F 12/02/21 05:20 Pulse 98 12/02/21 05:20 Resp 15 12/02/21 05:20 BP 121/77 12/02/21 05:20 Pulse Ox 100 12/02/21 05:20 Intake & Output 12/01/21 12/02/21 12/02/21 18:59 06:59 18:59 Weight 68.634 kg Laboratory Last Values WBC 11.3 k/uL (3.8-10.6) H 12/01/21 23:17 RBC 4.55 m/uL (3.80-5.40) 12/01/21 23:17 Hgb 13.5 gm/dL (11.4-16.0) 12/01/21 23:17 Hct 41.1 % (34.0-46.0) 12/01/21 23:17 MCV 90.3 fL (80.0-100.0) 12/01/21 23:17 MCH 29.6 pg (25.0-35.0) 12/01/21 23:17 MCHC 32.8 g/dL (31.0-37.0) 12/01/21 23:17 RDW 12.3 % (11.5-15.5) 12/01/21 23:17 Plt Count 393 k/uL (150-450) 12/01/21 23:17 MPV 6.9 12/01/21 23:17 Neutrophils % 67 % 12/01/21 23:17 Lymphocytes % 24 % 12/01/21 23:17 Monocytes % 6 % 12/01/21 23:17 Eosinophils % 1 % 12/01/21 23:17 Basophils % 1 % 12/01/21 23:17 Neutrophils # 7.6 k/uL (1.3-7.7) 12/01/21 23:17 Lymphocytes # 2.7 k/uL (1.0-4.8) 12/01/21 23:17 Monocytes # 0.7 k/uL (0-1.0) 12/01/21 23:17 Eosinophils # 0.2 k/uL (0-0.7) 12/01/21 23:17 Basophils # 0.1 k/uL (0-0.2) 12/01/21 23:17 Sodium 136 mmol/L (137-145) L 12/01/21 23:17 Potassium 3.8 mmol/L (3.5-5.1) 12/01/21 23:17 Chloride 102 mmol/L (98-107) 12/01/21 23:17 Carbon Dioxide 20 mmol/L (22-30) L 12/01/21 23:17 Anion Gap 14 mmol/L 12/01/21 23:17 BUN 9 mg/dL (7-17) 12/01/21 23:17 Creatinine 0.73 mg/dL (0.52-1.04) 12/01/21 23:17 Est GFR (CKD-EPI)AfAm >90 (>60 ml/min/1.73 sqM) 12/01/21 23:17 Est GFR (CKD-EPI)NonAf >90 (>60 ml/min/1.73 sqM) 12/01/21 23:17 Glucose 98 mg/dL (74-99) 12/01/21 23:17 Calcium 9.0 mg/dL (8.4-10.2) 12/01/21 23:17 Total Bilirubin 0.3 mg/dL (0.2-1.3) 12/01/21 23:17 AST 24 U/L (14-36) 12/01/21 23:17 ALT 20 U/L (4-34) 12/01/21 23:17 Alkaline Phosphatase 110 U/L (38-126) 12/01/21 23:17 Total Protein 6.9 g/dL (6.3-8.2) 12/01/21 23:17 Albumin 4.1 g/dL (3.5-5.0) 12/01/21 23:17 Urine Color Colorless 12/01/21 23:26 Urine Appearance Clear (Clear) 12/01/21 23:26 Urine pH 6.5 (5.0-8.0) 12/01/21 23:26 Ur Specific [place] 1.001 (1.001-1.035) 12/01/21 23:26 Urine Protein Negative (Negative) 12/01/21 23:26 Urine Glucose (UA) Negative (Negative) 12/01/21 23:26 Urine Ketones Negative (Negative) 12/01/21 23:26 Urine Blood Negative (Negative) 12/01/21 23: Urine Nitrite Negative (Negative) 12/01/21 23:26 Urine Bilirubin Negative (Negative) 12/01/21 23: Urine Urobilinogen <2.0 mg/dL (<2.0) 12/01/21 23:26 Ur Leukocyte Esterase Negative (Negative) 12/01/21 23: Urine HCG, Qual Not Detected (Not Detectd) 12/01/21 23: Salicylates <1.0 mg/dL 12/01/21 23:17 Urine Opiates Screen Not Detected (NotDetected) 12/01/21 23: Ur Oxycodone Screen Not Detected (NotDetected) 12/01/21 23:26 Urine Methadone Screen Not Detected (NotDetected) 12/01/21 23:26 Ur Propoxyphene Screen Not Detected (NotDetected) 12/01/21 23: Acetaminophen <10.0 ug/mL 12/01/21 23:17 Ur Barbiturates Screen Not Detected (NotDetected) 12/01/21 23:26 U Tricyclic Antidepress Not Detected (NotDetected) 12/01/21 23:26 Ur Phencyclidine Scrn Not Detected (NotDetected) 12/01/21 23:26 Ur Amphetamines Screen Not Detected (NotDetected) 12/01/21 23:26 U Methamphetamines Scrn Not Detected (NotDetected) 12/01/21 23:26 U Benzodiazepines Scrn Not Detected (NotDetected) 12/01/21 23:26 Urine Cocaine Screen Not Detected (NotDetected) 12/01/21 23:26 U Marijuana (THC) Screen Not Detected (NotDetected) 12/01/21 23:26 Serum Alcohol 133 mg/dL 12/01/21 23:17 Coronavirus (PCR) Not Detected (Not Detectd) 12/02/21 03:15 12/02/21 12:29 IDENTIFYING DATA: Patient is a single, , unemployed, 36-year-old female with a significant history of schizophrenia who presented to the hospital under petition and certification for worsening psychosis and nonadherence to treatment. HPI: Patient presented to the hospital on 12/02/2021, brought in by police on a pickup order due to nonadherence with treatment and her refusal to take her medications or attend her medication reviews. Furthermore, the patient has been noted to have worsening psychiatric symptoms with increased delusional thoughts and involuntary movements. Upon assessment on the psychiatric unit, the patient reports that she "I haven't been feeling well." She reports that she had an episode which she describes as experiencing "bad memories of things playing out my mind." She is quite vague and initially difficult to follow however when asked directly, the patient does admit to significant delusional thoughts. She does report that she has been experiencing paranoia and feeling like people are inserting thoughts into her head. She also reports that she feels like there are multiple things going on in the world and his concern for the world's safety when it comes to "the gas being used up by trucks." In regards to other psychotic symptoms, the patient does report that she does experience auditory hallucinations. She does report that these hallucinations have been ongoing for the past month and often tell her mean things. She however denies any command type hallucinations. In regards to mood symptoms, the patient is not reporting any suicidal or homicidal ideation, intention, and/or plan. She reports that she has had some difficulty with sleep however denies any issues regarding her appetite. She reports no significant symptoms of lashanda. She denies any increased goal-directed activity, racing thoughts, or pressured speech. When asked why she stopped taking her psychotropic medications, the patient reports that she was expressing significant tardive dyskinesia from the Invega. She reported that she was having increasing involuntary movements and that were causing her significant distress. She stated that she did not want to speak with her outpatient psychiatrist because she felt that she was not appropriate at the time. She reports that she is agreeable to treatment at this time PAST PSYCHIATRIC HISTORY: Patient has a diagnosis of schizophrenia. The patient's current home medication regimen includes Invega, Cogentin, Remeron, and gabapentin. However, the patient has not been adherent with her Invega. The patient has had 7 inpatient psychiatric admission since 2017 with her last psychiatric admission being 3 years ago in 2019. The patient follows with [facility]. Patient denies any history of suicide attempts in the past. PMH: Past Medical History: No Reported History Additional Past Medical History / Comment(s): due to acute psychosis History of Any Multi-Drug Resistant Organisms: None Reported Past Surgical History: No Surgical Hx Reported Additional Past Surgical History / Comment(s): xray of the left forearm shows evidence of open reduction and internal fixation of old fracture of the L forearm Past Anesthesia/Blood Transfusion Reactions: No Reported Reaction Past Psychological History: Schizophrenia Smoking Status: Current every day smoker Past Alcohol Use History: None Reported Past Drug Use History: None Reported, Methamphetamine ALLERGIES: Sulfa CHEMICAL DEPENDENCY HISTORY: The patient denies any tobacco, alcohol, or marijuana use. She does report a history of methamphetamine use but states that it has been 1-1/2 years since she last used meth amphetamines. FAMILY PSYCHIATRIC/SUBSTANCE USE HISTORY: Patient reports that her father is an alcoholic. SOCIAL HISTORY: Patient was born and raised in [place], [place]. She is . She is unable to recall what year she was . She states however that she was for 10 years. She currently lives with her friend "Janie." MENTAL STATUS EXAM: General Appearance: Patient appears to be stated age is alert, directable, and attempts to cooperate. Patient appears to have slightly disheveled hygiene and grooming. Behavior: Patient is seated without any agitated behavior. Psychomotor activity appears normal. Eye contact is intermittent. Speech: Patient's speech is fluent and nonpressured. Nonspontaneous and monotone. Mood/Affect: Patient reports their mood is "a little better," affect appears to be somewhat bizarre and aloof. Suicidality/Homicidality: Patient denies having any homicidal ideation intent or plan. Denies any suicidal ideations intent or plan Perceptions: Patient denies any visual hallucinations however she does endorse auditory hallucinations. Though content/process: Patient endorses that she does experience thought insertion, thought projection, mind reading, and paranoia. Memory and concentration: AOX3, grossly intact for the purposes of this session. Can spell "WORLD" backwards Judgment and insight: poor STRENGTHS/WEAKNESSES: Strength is that the patient appears to be resourceful and resilient. Weakness is that the patient has been nonadherent with treatment. INTELLECT: average IMPRESSIONS: Schizophrenia Methamphetamine use disorder, in remission PLAN: -Patient is admitted under voluntary status to [facility] for stabilization of psychiatric symptoms and safety. Patient signed adult voluntary form and medication consent and is placed in patient's chart. -Medications : Will start patient on Abilify 10 mg by mouth at bedtime for mood stabilization/psychosis. We'll titrate this medication to 20 mg over the weekend. We will restart Remeron 15 mg daily at bedtime for depression/insomnia We will discontinue Invega and Cogentin as the patient expressed that she was experiencing tardive dyskinesia from the Invega. -Ativan and Haldol PRN for agitation/aggression -Patient was counselled on substance abuse and desired to cut back on use -Patient was informed of the risks, benefits and side effects of the medication and patient verbally consented to taking the medications. Patient signed med consent form and was placed in chart. -Internal Medicine consult to perform medical evaluation and physical. -SW on board for discharge planning. Encourage patient to participate in groups to work on coping skills. 12/02/21 12:29
[2021-12-02] MEDS: MIRTAZAPINE 15 MG TAB PO SCH (20:37)
[2021-12-02] MEDS ORDERED: ARIPiprazole 10 MG TAB PO SCH (21:00)
[2021-12-03 07:08] VITALS: RESP 16
[2021-12-03] MEDS: NICOTINE 14MG/24HR PATCH TRANSDERM SCH ×2 (10:06→19:22)
--- NOTE | 2021-12-03 13:43 | P.PN ---
Progress Note - Text Progress Note Date: 12/03/21 Interval History: Patient was seen in her room and was agreeable to speak with technical writer and editor . This patient is a bit withdrawn and told me that her medications are okay. She was laying in the bed under the bed sheets. She will not leave the room to come and see me in the office.. At this time patient denies any suicidal or homical ideations, intent or plan. Patient denies any auditory, visual hallucinations and denies any paranoia or delusions. Patient denies any side effects from the medications and has been compliant with meds. Mental Status Exam: General Appearance: Patient appears to be stated age is alert, directable, and cooperative. Behavior: Patient is calmly seated without any agitated behavior. Speech: Patient's speech is fluent and nonpressured. Mood/Affect: Mood is improving mildly, affect is congruent and constricted. Suicidality/Homicidality: Patient denies having any suicidal or homicidal ideation intent or plan. Perceptions: Patient denies any visual hallucinations and denies any auditory hallucinations Though content/process: There is no evidence of any delusional thought content and thought process is linear and goal-directed. Memory and concentration: AOX3, grossly intact for the purposes of this session Judgment and insight: Improving mildly Assessment Patient continues to show symptoms of psychosis necessitating continued hospitalization Plan: -Patient continues to meet criteria for inpatient psychiatric admission for symp tavia stabilization and safety. Patient has not signed adult voluntary form and medication consent and was placed in patient's chart. -Medications: Continue medications as before. -When necessary Ativan and Haldol for agitation/aggression. -SW on board for discharge planning. Encouraged the patient to participate in milieu. Currently awaiting deferral with attorney law clerk and court date.
[2021-12-03] MEDS ORDERED: ARIPiprazole 15 MG TAB PO SCH (21:00)
[2021-12-03] MEDS: MIRTAZAPINE 15 MG TAB PO SCH (21:27)
[2021-12-04] MEDS: NICOTINE 14MG/24HR PATCH TRANSDERM SCH (08:43)
--- NOTE | 2021-12-04 11:39 | P.PN ---
Progress Note - Text Progress Note Date: 12/04/21 Interval History: Patient was seen in her room and was directable and agreeable to speak with content writer. Patient was laying in her room under the bed sheets and I offered to see her and she stated that there is nothing that I can do for her.. At this time patient denies any suicidal or homical ideations, intent or plan. Patient denies any auditory, visual hallucinations and denies any paranoia or delusions. Patient denies any side effects from the medications and has been compliant with meds. Mental Status Exam: General Appearance: Patient appears to be stated age is alert, directable, and cooperative. Behavior: Patient is calmly seated without any agitated behavior. Speech: Patient's speech is fluent and nonpressured. Mood/Affect: Mood is improving mildly, affect is congruent and constricted. Suicidality/Homicidality: Patient denies having any suicidal or homicidal ideation intent or plan. Perceptions: Patient denies any visual hallucinations and denies any auditory hallucinations Though content/process: There is no evidence of any delusional thought content and thought process is linear and goal-directed. Memory and concentration: AOX3, grossly intact for the purposes of this session Judgment and insight: Improving mildly Assessment This patient has a history of psychosis and continues to have severe symptomatology necessitating continued hospitalization. Plan: -Patient continues to meet criteria for inpatient psychiatric admission for sym ptom stabilization and safety. -Medications: Continue medications as before. -When necessary Ativan and Haldol for agitation/aggression. -SW on board for discharge planning. Encouraged the patient to participate in milieu.
[2021-12-04] MEDS: GABAPENTIN 400 MG CAP PO SCH ×2 (14:38→21:22)
[2021-12-04] MEDS: MIRTAZAPINE 15 MG TAB PO SCH (20:28)
[2021-12-05 07:03] VITALS: TEMP 97.9
[2021-12-05] MEDS: NICOTINE 14MG/24HR PATCH TRANSDERM SCH (08:23)
[2021-12-05] MEDS: GABAPENTIN 400 MG CAP PO SCH ×3 (08:24→19:56)
--- NOTE | 2021-12-05 13:27 | P.PN ---
Progress Note - Text Progress Note Date: 12/05/21 Interval History: Patient was seen wandering the hallways and was directable and agreeable to speak with science writer in the office. The patient reports that she is feeling well. She is not reporting any suicidal or homicidal ideation, intention, and/or plan. She is not reporting any auditory or visual hallucinations. She's not reporting any paranoia or other delusions at this time. The patient makes no mention of any thought insertion, thought projection, mind reading, or any other paranoid delusions at this time. The patient has been adherent with the medications and is not endorsing any significant side effects. She does report some mild tremors but states that she has been expressing this even prior to her Abilify. The patient vehemently denies any methamphetamine use and reports that she just did not want to speak with [facility] at the time that she felt like she was not stable enough to see them. She is otherwise tolerating her medications well and is adherent with them. Initially there was a thought of transitioning her to Abilify Maintena however the patient wishes to continue with oral at this time as she is worried about side effects due to a previous bad reaction to invega. Mental Status Exam: General Appearance: Patient appears to be stated age is alert, directable, and cooperative. Behavior: Patient is calmly seated without any agitated behavior. Eye contact is appropriate. Speech: Patient's speech is fluent and nonpressured. Nonspontaneous but otherwise of normal volume and tone. Mood/Affect: Mood is improving mildly, affect is congruent and constricted. Suicidality/Homicidality: Patient denies having any suicidal or homicidal id eation intent or plan. Perceptions: Patient denies any visual hallucinations and denies any auditory hallucinations Though content/process: There is no evidence of any delusional thought content a nd thought process is linear and goal-directed. Memory and concentration: AOX3, grossly intact for the purposes of this session Judgment and insight: Improving mildly Vital Signs Temp 97.9 F 12/05/21 07:02 Pulse 63 12/05/21 07:02 Resp 16 12/05/21 07:02 BP 111/69 12/05/21 07:02 Pulse Ox 100 12/02/21 05:20 Intake & Output 12/04/21 12/05/21 12/05/21 18:59 06:59 18:59 Weight 69 kg Assessment Schizophrenia Methamphetamine use disorder, in remission Plan: -Patient continues to meet criteria for inpatient psychiatric admission for symptom stabilization and safety. Patient has signed adult voluntary form and medication consent and was placed in patient's chart. -Medications: Continue Abilify 20 mg by mouth at bedtime for psychosis and mood stabilization Start Cogentin 0.5 mg by mouth twice a day for EPS side effects Continue gabapentin 800 mg by mouth 3 times a day for anxiety off label use Continue Remeron 15 mg by mouth at bedtime for depression/insomnia -When necessary Ativan and Haldol for agitation/aggression. -SW on board for discharge planning. Encouraged the patient to participate in milieu.
[2021-12-05] MEDS: MIRTAZAPINE 15 MG TAB PO SCH (19:55)
[2021-12-05] MEDS: BENZTROPINE MESYLATE 0.5 MG TAB PO SCH (19:55)
[2021-12-05] MEDS: LORazepam 1 MG TAB PO PRN (21:12)
[2021-12-06 06:27] VITALS: BP 113/76; PULSE 89
[2021-12-06] MEDS: NICOTINE 14MG/24HR PATCH TRANSDERM SCH (08:31)
[2021-12-06] MEDS: GABAPENTIN 400 MG CAP PO SCH (08:33)
[2021-12-06] MEDS: LORazepam 1 MG TAB PO PRN (08:33)
[2021-12-06] MEDS: BENZTROPINE MESYLATE 0.5 MG TAB PO SCH (08:33)
--- NOTE | 2021-12-06 12:06 | P.DS ---
Providers Date of admission: 12/02/21 05:06 Expected date of discharge: 12/06/21 Attending physician: Santos Dunne MD Consults: 12/02/21 05:15 Consult Physician Routine Consulting Provider: Gianna Nye Consult Reason/Comments: For H & P for Medical Follow Up Do you want consulting provider notified?: Yes, Notify in am Primary care physician: Vinnie Bueno - Discharge Diagnosis(es) (1) Schizophrenia Current Visit: Yes Status: Acute Priority: High Hospital Course: Admission HPI: Patient is a single, , unemployed, 36-year-old female with a significant history of schizophrenia who presented to the hospital under petition and certification for worsening psychosis and nonadherence to treatment. Patient presented to the hospital on 12/02/2021, brought in by police on a pickup order due to nonadherence with treatment and her refusal to take her medications or attend her medication reviews. Furthermore, the patient has been noted to have worsening psychiatric symptoms with increased delusional thoughts and involuntary movements. Upon assessment on the psychiatric unit, the patient reports that she "I haven't been feeling well." She reports that she had an episode which she describes as experiencing "bad memories of things playing out my mind." She is quite vague and initially difficult to follow however when asked directly, the patient does admit to significant delusional thoughts. She does report that she has been experiencing paranoia and feeling like people are inserting thoughts into her head. She also reports that she feels like there are multiple things going on in the world and his concern for the world's safety when it comes to "the gas being used up by trucks." In regards to other psychotic symptoms, the patient does report that she does experience auditory hallucinations. She does report that these hallucinations have been ongoing for the past month and often tell her mean things. She however denies any command type hallucinations. In regards to mood symptoms, the patient is not reporting any suicidal or homicidal ideation, intention, and/or plan. She reports that she has had some difficulty with sleep however denies any issues regarding her appetite. She reports no significant symptoms of lashanda. She denies any increased goal-directed activity, racing thoughts, or pressured speech. When asked why she stopped taking her psychotropic medications, the patient reports that she was expressing significant tardive dyskinesia from the Invega. She reported that she was having increasing involuntary movements and that were causing her significant distress. She stated that she did not want to speak with her outpatient psychiatrist because she felt that she was not appropriate at the time. She reports that she is agreeable to treatment at this time Patient has a diagnosis of schizophrenia. The patient's current home medication regimen includes Invega, Cogentin, Remeron, and gabapentin. However, the patient has not been adherent with her Invega. The patient has had 7 inpatient psychiatric admission since 2017 with her last psychiatric admission being 3 years ago in 2019. The patient follows with [facility]. Patient denies any history of suicide attempts in the past. Hospital course: Upon admission to the unit patient was initially presenting with a slightly disheveled hygiene and grooming however appeared to be alert and oriented. She did present with a somewhat bizarre and delusional affect and did endorse significant delusional thought content including paranoia, mind reading, and thought insertion. Patient was however directable and agreeable to commence treatment. Patient got along well with other patients on the unit and followed unit protocol. Patient was compliant with the medications and denied any side effects throughout hospital course. Patient was started on Abilify for management for psychotic symptoms as the patient has significant history of tardive dyskinesia as a result of previous antipsychotic use. The decision was made to place the patient on a dopamine modulator versus an antagonist. The patient responded well to this medication. She did express a few EPS symptoms including mild tremulousness however states that this is well managed with the addition of Cogentin. Remeron was started for the patient nor to help with appetite, sleep, and insomnia. Neurontin was was part of the patient's home medication regimen and was titrated in order to address complaints of anxiety. On the day of discharge, the patient is not reporting any suicidal or homicidal ideation, intention and/or plan. She is not reporting any auditory or visual hallucinations. She denies any paranoia or other delusions at this time. The patient has been adherent to her medications and is not endorsing any significant side effects since the Cogentin has been added. Initial thought was to transition the patient to a long-acting injectable however since the patient has a significant history of sensitivity to antipsychotic medications, we opted to continue just or medications. The patient was consequently on importance of medication adherence and appropriate outpatient follow up with [facility]. The patient does have a significant history of methamphetamine abuse however maintains that she has not use any methamphetamines and was consequently come avoiding all substances including alcohol, marijuana, and methamphetamines. Prior to mary fuentes, family meeting will be arranged by social worker assistant to answer questions and ensure safety. Mental status exam: General Appearance: Patient appears to be stated age is alert, pleasant, and cooperative. Patient is in no acute distress and has fair hygiene and grooming Behavior: Patient is calmly seated without any agitated behavior. Speech: Patient's speech is fluent and nonpressured. Mood/Affect: Patient reports their mood is "much better", affect is congruent and euthymic. Suicidality/Homicidality: Patient denies having any suicidal or homicidal ideation intent or plan. Perceptions: Patient denies any auditory or visual hallucinations. Though content/process: There is no evidence of any delusional thought content and thought process is linear and goal-directed. She is future oriented. Memory and concentration: AOX3, grossly intact for the purposes of this session. Can spell "WORLD" backwards correctly. Judgment and insight: Improved Vital Signs Temp 97.9 F 12/06/21 06:26 Pulse 89 12/06/21 06:26 Resp 16 12/05/21 07:02 BP 113/76 12/06/21 06:26 Pulse Ox 95 12/06/21 06:26 Impression: Schizophrenia Methamphetamine use disorder, in remission Plan: -Continue with discharge today as patient has improved and stabilized psychiatrically and is not currently an imminent threat to herself and/or others. Patient will remain at chronically elevated risk for harm to self and/or others due to her history of substance abuse and the severity of her mental illness. -Continue medications: Abilify 20 mg by mouth at bedtime for mood stabilization/psychosis Gabapentin 800 mg by mouth 3 times a day for a label use for anxiety Remeron 15 mg daily at bedtime for depression/insomnia/appetite stimulation Cogentin 0.5 mg by mouth twice a day for EPS side effects -Patient was counseled on the need for medication compliance and appropriate follow-up at mental health and also primary care for medical issues. Patient verbalized understanding and agreed. -Social work to arrange for and conduct family meeting to ensure safety upon discharge and answer any questions/concerns. Social work also to arrange for patients follow up appointments with [facility] for psychiatric care along with follow up with primary care provider. -Patient counseled on abstaining from recreational drugs and marijuana and alcohol. Was informed/educated on the adverse effects on their physical and mental health. Patient verbally agreed and understood. -Patient was instructed to return to the hospital or seek immediate medical care if their psychiatric or medical symptoms do worsen or reoccur. -Psychoeducation and supportive therapy provided to patient. Risks and benefits of pharmacological treatment versus the risks and benefits of nontreatment weight and discussed. Informed consent discussion held. Common side effects of psychotropics discussed such as, but not limited to headache, GI disturbance, sexual dysfunction, movement disorders, sedation, and orthostatic hypotension. Life threatening and blackbox warnings of prescribed medications also discussed. Potential risks of operating a vehicle or heavy machinery discussed with patient at length. Advised on importance of compliance and a reliable and responsible manner. Patient advised to review FDA consumer labeling of all medications prior to taking. Patient verbalized understanding of potential risks, and agrees with current treatment plan. Patient advised to medically contact physician/emergency personnel if any acute changes in condition occur. Laboratory Results WBC 11.3 k/uL (3.8-10.6) H 12/01/21 23:17 RBC 4.55 m/uL (3.80-5.40) 12/01/21 23:17 Hgb 13.5 gm/dL (11.4-16.0) 12/01/21 23:17 Hct 41.1 % (34.0-46.0) 12/01/21 23:17 MCV 90.3 fL (80.0-100.0) 12/01/21 23:17 MCH 29.6 pg (25.0-35.0) 12/01/21 23:17 MCHC 32.8 g/dL (31.0-37.0) 12/01/21 23:17 RDW 12.3 % (11.5-15.5) 12/01/21 23:17 Plt Count 393 k/uL (150-450) 12/01/21 23:17 MPV 6.9 12/01/21 23:17 Neutrophils % 67 % 12/01/21 23:17 Lymphocytes % 24 % 12/01/21 23:17 Monocytes % 6 % 12/01/21 23:17 Eosinophils % 1 % 12/01/21 23:17 Basophils % 1 % 12/01/21 23:17 Neutrophils # 7.6 k/uL (1.3-7.7) 12/01/21 23:17 Lymphocytes # 2.7 k/uL (1.0-4.8) 12/01/21 23:17 Monocytes # 0.7 k/uL (0-1.0) 12/01/21 23:17 Eosinophils # 0.2 k/uL (0-0.7) 12/01/21 23:17 Basophils # 0.1 k/uL (0-0.2) 12/01/21 23:17 Sodium 136 mmol/L (137-145) L 12/01/21 23:17 Potassium 3.8 mmol/L (3.5-5.1) 12/01/21 23:17 Chloride 102 mmol/L (98-107) 12/01/21 23:17 Carbon Dioxide 20 mmol/L (22-30) L 12/01/21 23:17 Anion Gap 14 mmol/L 12/01/21 23:17 BUN 9 mg/dL (7-17) 12/01/21 23:17 Creatinine 0.73 mg/dL (0.52-1.04) 12/01/21 23:17 Est GFR (CKD-EPI)AfAm >90 (>60 ml/min/1.73 sqM) 12/01/21 23:17 Est GFR (CKD-EPI)NonAf >90 (>60 ml/min/1.73 sqM) 12/01/21 23:17 Glucose 98 mg/dL (74-99) 12/01/21 23:[address] Glu mg/dL 115 12/03/21 07:49 Hemoglobin A1c 5.6 % (0.0-6.0) 12/03/21 07:49 Calcium 9.0 mg/dL (8.4-10.2) 12/01/21 23:17 Total Bilirubin 0.3 mg/dL (0.2-1.3) 12/01/21 23:17 AST 24 U/L (14-36) 12/01/21 23:17 ALT 20 U/L (4-34) 12/01/21 23:17 Alkaline Phosphatase 110 U/L (38-126) 12/01/21 23:17 Total Protein 6.9 g/dL (6.3-8.2) 12/01/21 23: Albumin 4.1 g/dL (3.5-5.0) 12/01/21 23: TSH 0.844 mIU/L (0.465-4.680) 12/03/21 07:49 Urine Color Colorless 12/01/21 23: Urine Appearance Clear (Clear) 12/01/21 23: Urine pH 6.5 (5.0-8.0) 12/01/21 23: Ur Specific [place] 1.001 (1.001-1.035) 12/01/21 23: Urine Protein Negative (Negative) 12/01/21 23: Urine Glucose (UA) Negative (Negative) 12/01/21: Urine Ketones Negative (Negative) 12/01/21: Urine Blood Negative (Negative) 12/01/21: Urine Nitrite Negative (Negative) 12/01/21 23: Urine Bilirubin Negative (Negative) 12/01/21 23: Urine Urobilinogen <2.0 mg/dL (<2.0) 12/01/21 23: Ur Leukocyte Esterase Negative (Negative) 12/01/21 23: Urine HCG, Qual Not Detected (Not Detectd) 12/01/21: Salicylates <1.0 mg/dL 12/01/21 23:17 Urine Opiates Screen Not Detected (NotDetected) 12/01/21 23: Ur Oxycodone Screen Not Detected (NotDetected) 12/01/21 23: Urine Methadone Screen Not Detected (NotDetected) 12/01/21 23: Ur Propoxyphene Screen Not Detected (NotDetected) 12/01/21 23: Acetaminophen <10.0 ug/mL 12/01/21 23:17 Ur Barbiturates Screen Not Detected (NotDetected) 12/01/21 23: U Tricyclic Antidepress Not Detected (NotDetected) 12/01/21 23: Ur Phencyclidine Scrn Not Detected (NotDetected) 12/01/21 23: Ur Amphetamines Screen Not Detected (NotDetected) 12/01/21 23: U Methamphetamines Scrn Not Detected (NotDetected) 12/01/21 23:26 U Benzodiazepines Scrn Not Detected (NotDetected) 12/01/21 23:26 Urine Cocaine Screen Not Detected (NotDetected) 12/01/21 23:26 U Marijuana (THC) Screen Not Detected (NotDetected) 12/01/21 23:26 Serum Alcohol 133 mg/dL 12/01/21 23:17 Coronavirus (PCR) Not Detected (Not Detectd) 12/02/21 03:15 Allergies Allergy/AdvReac Type Severity Reaction Status Date / Time Sulfa (Sulfonamide Allergy Rash/Hives Verified 12/02/21 05:38 Antibiotics) Patient Condition at Discharge: Stable Plan - Discharge Summary Discharge Rx Participant: No New Discharge Prescriptions: New ARIPiprazole [Abilify] 20 mg PO HS 30 Days tab Nicotine 14Mg/24Hr Patch [Habitrol] 1 patch TRANSDERM DAILY 30 Days patch Gabapentin [Neurontin] 800 mg PO TID 30 Days cap Mirtazapine [Remeron] 15 mg PO HS 30 Days tab Benztropine Mesylate [Cogentin] 0.5 mg PO BID 30 Days tab Discontinued Gabapentin [Neurontin] 400 mg PO TID Benztropine Mesylate [Cogentin] 1 mg PO BID PRN PRN Reason: Anxiety No Action Mirtazapine [Remeron] 15 mg PO HS Paliperidone [Paliperidone ER] 9 mg PO HS Discharge Medication List Mirtazapine [Remeron] 15 mg PO HS 08/30/20 [History] Paliperidone [Paliperidone ER] 9 mg PO HS 12/01/21 [History] ARIPiprazole [Abilify] 20 mg PO HS 30 Days tab 12/06/21 [Rx] Benztropine Mesylate [Cogentin] 0.5 mg PO BID 30 Days tab 12/06/21 [Rx] Gabapentin [Neurontin] 800 mg PO TID 30 Days cap 12/06/21 [Rx] Mirtazapine [Remeron] 15 mg PO HS 30 Days tab 12/06/21 [Rx] Nicotine 14Mg/24Hr Patch [Habitrol] 1 patch TRANSDERM DAILY 30 Days patch 12/06/21 [Rx] Follow up Appointment(s)/Referral(s): [facility] [Outside] - 12/06/21 11:30 am (Today with [facility] team at 11:30 12-13-21 @ 11:[address] Weller at [facility] ) Myles Birmingham MD [Primary Care Provider] - 1-2 days Patient Instructions/Handouts: Schizophrenia (DC), Methamphetamine Abuse (DC) Activity/Diet/Wound Care/Special Instructions: Activity and diet as tolerated. Avoid the use of street drugs and alcohol. Take all medications as prescribed. When you are in need of refills on your medications please contact your medical provider and/or outpatient psychiatrist to have this done. Please go to scheduled outpatient appointment for aftercare treatment. If symptoms return or become worse, call the crisis line at and/or go to the nearest emergency room for evaluation Discharge Disposition: HOME SELF-CARE
== END 2021-12-06 13:28 | disposition home or self-care (01) | DRG 885 ==
LOC: EC 22:48 → 3MHU 12-02 05:06
PROVIDERS: ADMIT Psychiatry & Neurology Psychiatry; ATTEND Psychiatry & Neurology Psychiatry
DX: F20.9 Schizophrenia, unspecified (principal); E87.1 Hypo-osmolality and hyponatremia; E87.2 Acidosis; E86.0 Dehydration; R41.82 Altered mental status, unspecified; D72.829 Elevated white blood cell count, unspecified; F10.10 Alcohol abuse, uncomplicated; F15.11 Other stimulant abuse, in remission; F17.210 Nicotine dependence, cigarettes, uncomplicated; Z20.822 Contact with and (suspected) exposure to COVID-19; F32.A Depression, unspecified; F41.9 Anxiety disorder, unspecified; G24.01 Drug induced subacute dyskinesia; G47.00 Insomnia, unspecified; R09.02 Hypoxemia; Z79.899 Other long term (current) drug therapy; Z81.1 Family history of alcohol abuse and dependence; M25.532 Pain in left wrist; Z88.2 Allergy status to sulfonamides; Z91.14 Patient's other noncompliance with medication regimen
CPT/HCPCS: 36415; 71045; 80053; 80143; 80179; 80306; 80320; 81003; 81025; 82075; 83036; 84443; 85025; 87635; 93005; 99285

== ENCOUNTER → 2024-01-23 | Outpatient (CLI) | payer MEDICARE, OTHER ==
--- NOTE | 2024-01-25 10:20 | MM ---
Reason for Exam: Screening (asymptomatic). Baseline mammogram. Patient History: Menarche at age 14. Patient has no children. Currently using Hormonal Contraceptives, beginning at age 36 for 2 years. Paternal grandmother had breast cancer. Last menstrual period: 01/07/2024 Risk Values: Montse 5 year model risk: 0.6%. NCI Lifetime model risk: 10.2%. Prior Study Comparison: Patient's first Mammogram. Tissue Density: The breasts are heterogeneously dense, which may obscure small masses. Findings: Analyzed By CAD. Right breast: Asymmetry CC view middle depth medial 5.7 cm from nipple. Left breast: Asymmetry lateral aspect review middle depth 5.5 cm nipple measuring 5 mm. This may be superior 3.3 cm nipple on MLO view. Right breast: Asymmetry CC view middle depth medial 5.7 cm from nipple. Left breast: Asymmetry lateral aspect on cc view middle depth 5.5 cm nipple measuring 5 mm. This may be superior 3.3 cm from the nipple on MLO view. Overall Assessment: Incomplete: need additional imaging evaluation, BI-RAD 0 Management: Diagnostic Mammogram of both breasts. [facility] will attempt to contact patient to return for supplemental views and ultrasound if indicated. Patient should continue monthly self-breast exams. A clinical breast exam by your physician is recommended on an annual basis. This exam should not preclude additional follow-up of suspicious palpable abnormalities. Note on Montse scores and lifetime risk: 1. A Montse score greater than 3% is considered moderate risk. If this is the case, consider specialist referral to assess eligibility for a risk reducing agent. 2. If overall lifetime risk for the development of breast cancer is 20% or higher, the patient may qualify for future screening with alternating mammogram and breast MRI. Electronically signed and approved by: Micheal Ramos DO
== END | disposition home or self-care (01) ==
LOC: RADMAMWWP 14:39
PROVIDERS: ATTEND Family Medicine
DX: Z12.31 Encounter for screening mammogram for malignant neoplasm of breast (principal); Z80.3 Family history of malignant neoplasm of breast
CPT/HCPCS: 77067

== ENCOUNTER → 2024-01-28 | Outpatient (CLI) | payer MEDICARE, OTHER ==
--- NOTE | 2024-01-30 09:03 | MM ---
Reason for Exam: Additional evaluation requested from abnormal screening. Last screening mammogram was performed less than 1 month ago. Patient History: Menarche at age 14. Patient has no children. Currently using Hormonal Contraceptives, beginning at age 36 for 2 years. Paternal grandmother had breast cancer. Risk Values: Montse 5 year model risk: 0.6%. NCI Lifetime model risk: 10.2%. Prior Study Comparison: 01/23/2024 Bilateral MG screening mammo w CAD, [facility]. Tissue Density: The breasts are heterogeneously dense, which may obscure small masses. Findings: Analyzed By CAD. No persistent nodule or mass. No distortion seen. Overall Assessment: Negative, BI-RAD 1 Management: Screening Mammogram of both breasts in 1 year. . Results were given to the patient verbally at the time of exam. Patient should continue monthly self-breast exams. A clinical breast exam by your physician is recommended on an annual basis. This exam should not preclude additional follow-up of suspicious palpable abnormalities. Note on Montse scores and lifetime risk: 1. A Montse score greater than 3% is considered moderate risk. If this is the case, consider specialist referral to assess eligibility for a risk reducing agent. 2. If overall lifetime risk for the development of breast cancer is 20% or higher, the patient may qualify for future screening with alternating mammogram and breast MRI. Electronically signed and approved by: Saul Blount M.D. Radiologis
== END | disposition home or self-care (01) ==
LOC: RADMAMWWP 13:28
PROVIDERS: ATTEND Family Medicine
DX: R92.333 Mammographic heterogeneous density, bilateral breasts (principal); Z80.3 Family history of malignant neoplasm of breast
CPT/HCPCS: 77062; 77066

== ENCOUNTER 2024-08-30 05:24 | Emergency (ER) | payer MEDICARE, OTHER ==
[2024-08-30] MEDS: LORazepam 1 MG TAB PO STA (05:53)
[2024-08-30 06:09] LABS: Appearance,Urine Cloudy (Clear); Bacteria,Urine Rare /hpf; Bilirubin,Urine Negative (Negative); Blood,Urine Negative (Negative); Color,Urine Yellow; Glucose,Urine (UA) Negative (Negative); Ketones,Urine 2+ (Negative); Leukocyte Esterase,Urine Small (Negative); Mucus,Urine Few /hpf; Nitrite,Urine Positive (Negative); Protein,Urine Trace (Negative); RBC,Urine 5 /hpf (0-5); Specific Gravity,Urine 1.027 (1.001-1.035); Squamous Epithelial Cell,Urine 6 /hpf (0-4); Urobilinogen,Urine <2.0 mg/dL (<2.0); WBC,Urine 12 /hpf (0-5)
--- NOTE | 2024-08-30 06:09 | ED ---
Psych HPI <Philip Chun - Last Filed: 08/30/24 12:16> - General Source: patient Mode of arrival: ambulatory <Laverne Villalta - Last Filed: 08/30/24 21:30> - General Chief Complaint: Psychiatric Symptoms Stated Complaint: Petition Time Seen by Provider: 08/30/24 05:41 - History of Present Illness Initial Comments: 39-year-old female with history of anxiety and depression who presents the ER today reporting that she just cannot sleep that she is having racing thoughts she occasionally is hearing voices though she does not want to tell me what the voices are saying. Patient states that she has been compliant with her regular medication she last followed with [facility] a week or 2 ago. Patient does admit to using kratom 3 times daily and has been doing this for an extended period of time. Denies other drug use. Reports she has required inpatient psychiatric hospitalization before and feels like she might need that today. (Laverne Villalta) - Related Data Home Medications Medication Instructions Recorded Confirmed Mirtazapine [Remeron] 15 mg PO HS 08/30/20 12/02/21 Paliperidone [Paliperidone ER] 9 mg PO HS 12/01/21 12/02/21 Previous Rx's Medication Instructions Recorded ARIPiprazole [Abilify] 20 mg PO HS 30 Days tab 12/06/21 Benztropine Mesylate [Cogentin] 0.5 mg PO BID 30 Days tab 12/06/21 Gabapentin [Neurontin] 800 mg PO TID 30 Days cap 12/06/21 Mirtazapine [Remeron] 15 mg PO HS 30 Days tab 12/06/21 Nicotine 14Mg/24Hr Patch [Habitrol] 1 patch TRANSDERM DAILY 30 Days 12/06/21 patch hydrOXYzine pamoate [Vistaril] 50 mg PO Q8HR PRN #10 capsule 08/30/24 Allergies Allergy/AdvReac Type Severity Reaction Status Date / Time Sulfa (Sulfonamide Allergy Rash/Hives Verified 08/30/24 05:33 Antibiotics) Review of Systems ROS Other: All systems not noted in ROS Statement are negative. <Philip Chun - Last Filed: 08/30/24 12:16> ROS Other: All systems not noted in ROS Statement are negative. <Laverne Villalta - Last Filed: 08/30/24 21:30> ROS Statement: Those systems with pertinent positive or pertinent negative responses have been documented in the HPI. Past Medical History Past Medical History: No Reported History Additional Past Medical History / Comment(s): due to acute psychosis History of Any Multi-Drug Resistant Organisms: None Reported Past Surgical History: No Surgical Hx Reported Additional Past Surgical History / Comment(s): xray of the left forearm shows evidence of open reduction and internal fixation of old fracture of the L forearm Past Anesthesia/Blood Transfusion Reactions: No Reported Reaction Past Psychological History: Schizophrenia Smoking Status: Former smoker Past Alcohol Use History: Occasional Past Drug Use History: None Reported, Marijuana, Methamphetamine - Past Family History Father Family Medical History: No Reported History Additional Family Medical History / Comment(s): Age 52 Mother Family Medical History: No Reported History Additional Family Medical History / Comment(s): Age 52 <Laverne Villalta - Last Filed: 08/30/24 21:30> General Exam Limitations: no limitations General appearance: alert Head exam: Present: atraumatic Eye exam: Present: PERRL ENT exam: Present: mucous membranes dry Respiratory exam: Absent: respiratory distress Cardiovascular Exam: Present: regular rate GI/Abdominal exam: Present: soft. Absent: distended Rectal exam: Present: deferred Neurological exam: Present: alert, oriented X3 Psychiatric exam: Present: anxious, manic, other (Has rapid pressured speech, difficulty focusing on conversation) Skin exam: Present: dry <Laverne Villalta - Last Filed: 08/30/24 21:30> Course Vital Signs 08/30/24 08/30/24 05:26 12:45 Temperature 97.3 F L 98.0 F Pulse Rate 100 85 Respiratory 18 17 Rate Blood Pressure 138/79 111/70 O2 Sat by Pulse 95 97 Oximetry Medical Decision Making - Lab Data Result diagrams: 08/30/24 06:00 08/30/24 05:50 <Philip Chun - Last Filed: 08/30/24 12:16> - Lab Data Result diagrams: 08/30/24 06:00 08/30/24 05:50 <Laverne Villalta - Last Filed: 08/30/24 21:30> - Medical Decision Making Case discussed with psychiatric nurse with plans for discharge patient reevaluated and resting comfortably in bed. Patient denies suicidal ideation and does contract for safety. Family is present and agreeable with plan. Patient to be discharged with follow-up Diagnosis: Depression, acute on chronic (Philip Chun) Was pt. sent in by a medical professional or institution ([facility] [employer], SOLAR DESIGNER/INSTALLER, urgent care, hospital, or long-term...) When possible be specific @ -No Did you speak to anyone other than the patient for history (EMS, parent, family, police, friend...)? What history was obtained from this source @ -No Did you review nursing and triage notes (agree or disagree)? Why? @ -I reviewed and agree with nursing and triage notes Were old charts reviewed (outside hosp., previous admission, EMS record, old EKG, old radiological studies, urgent care reports/EKG's, long-term records)? Report findings @ -No old charts were reviewed Differential Diagnosis (chest pain, altered mental status, abdominal pain women, abdominal pain men, vaginal bleeding, weakness, fever, dyspnea, syncope, headache, dizziness, GI bleed, back pain, seizure, CVA, palpatations, mental health)? @ -Not applicable EKG interpreted by me (3pts min.). @ -As above X-rays interpreted by me (1pt min.). @ -None done CT interpreted by me (1pt min.). @ -None done U/S interpreted by me (1pt. min.). @ -None done What testing was considered but not performed or refused? (CT, X-rays, U/S, labs)? Why? @ -None What meds were considered but not given or refused? Why? @ -None Did you discuss the management of the patient with other professionals (professionals i.e. [facility] [employer], SOLAR DESIGNER/INSTALLER, lab, RT, psych nurse, social insurance analyst, occupational nurse, teacher, fare enforcement officer, shelter case manager)? Give summary @ -No Was smoking cessation discussed for >3mins.? @ -No Was critical care preformed (if so, how long)? @ -No Were there social determinants of health that impacted care today? How? (Homelessness, low income, unemployed, alcoholism, drug addiction, transportation, low edu. Level, literacy, decrease access to med. care, prison, rehab)? @ -No Was there de-escalation of care discussed even if they declined (Discuss DNR or withdrawal of care, Hospice)? DNR status @ -No What co-morbidities impacted this encounter? (DM, HTN, Smoking, COPD, CAD, Cancer, CVA, ARF, Chemo, Hep., AIDS, mental health diagnosis, sleep apnea, morbid obesity)? @ -None Was patient admitted / discharged? Hospital course, mention meds given and route, prescriptions, significant lab abnormalities, going to OR and other pertinent info. @ Patient care signed out to Dr Chun pending evaluation by EPS (Laverne Villalta) - Lab Data Lab Results 08/30/24 08/30/24 08/30/24 Range/Units 05:50 06:00 06:00 WBC 6.3 (3.8-10.6) k/uL RBC 4.54 (3.80-5.40) m/uL Hgb 13.2 (11.4-16.0) gm/dL Hct 40.9 (34.0-46.0) % MCV 90.0 (80.0-100.0) fL MCH 29.0 (25.0-35.0) pg MCHC 32.3 (31.0-37.0) g/dL RDW 12.2 (11.5-15.5) % Plt Count 415 (150-450) k/uL MPV 7.0 Neutrophils % 70 % Lymphocytes % 22 % Monocytes % 4 % Eosinophils % 2 % Basophils % 1 % Neutrophils # 4.4 (1.3-7.7) k/uL Lymphocytes # 1.4 (1.0-4.8) k/uL Monocytes # 0.3 (0-1.0) k/uL Eosinophils # 0.1 (0-0.7) k/uL Basophils # 0.0 (0-0.2) k/uL Sodium 139 (137-145) mmol/L Potassium 3.4 L (3.5-5.1) mmol/L Chloride 110 H (98-107) mmol/L Carbon Dioxide 21 L (22-30) mmol/L Anion Gap 8 mmol/L BUN 6 L (7-17) mg/dL Creatinine 0.83 (0.52-1.04) mg/dL Est GFR (CKD-EPI)AfAm >90 (>60 ml/min/1.73 sqM) Est GFR (CKD-EPI)NonAf 88 (>60 ml/min/1.73 sqM) Glucose 145 H (74-99) mg/dL Calcium 9.1 (8.4-10.2) mg/dL Total Bilirubin 0.5 (0.2-1.3) mg/dL AST 21 (14-36) U/L ALT 21 (4-34) U/L Alkaline Phosphatase 107 (38-126) U/L Total Protein 7.3 (6.3-8.2) g/dL Albumin 4.3 (3.5-5.0) g/dL Urine Color Yellow Urine Appearance Cloudy H (Clear) Urine pH 6.0 (5.0-8.0) Ur Specific [place] 1.027 (1.001-1.035) Urine Protein Trace H (Negative) Urine Glucose (UA) Negative (Negative) Urine Ketones 2+ H (Negative) Urine Blood Negative (Negative) Urine Nitrite Positive H (Negative) Urine Bilirubin Negative (Negative) Urine Urobilinogen <2.0 (<2.0) mg/dL Ur Leukocyte Esterase Small H (Negative) Urine RBC 5 (0-5) /hpf Urine WBC 12 H (0-5) /hpf Ur Squamous Epith Cells 6 H (0-4) /hpf Urine Bacteria Rare H (None) /hpf Urine Mucus Few H (None) /hpf Urine HCG, Qual (Not Detectd) Salicylates <1.0 mg/dL Urine Opiates Screen Not Detected (NotDetected) Ur Oxycodone Screen Not Detected (NotDetected) Urine Methadone Screen Not Detected (NotDetected) Acetaminophen <10.0 ug/mL Ur Barbiturates Screen Not Detected (NotDetected) U Tricyclic Antidepress Not Detected (NotDetected) Ur Phencyclidine Scrn Not Detected (NotDetected) Ur Amphetamines Screen Not Detected (NotDetected) U Methamphetamines Scrn Not Detected (NotDetected) U Benzodiazepines Scrn Not Detected (NotDetected) Urine Cocaine Screen Not Detected (NotDetected) U Marijuana (THC) Screen Not Detected (NotDetected) Serum Alcohol <10 mg/dL 08/30/24 Range/Units 06:00 WBC (3.8-10.6) k/uL RBC (3.80-5.40) m/uL Hgb (11.4-16.0) gm/dL Hct (34.0-46.0) % MCV (80.0-100.0) fL MCH (25.0-35.0) pg MCHC (31.0-37.0) g/dL RDW (11.5-15.5) % Plt Count (150-450) k/uL MPV Neutrophils % % Lymphocytes % % Monocytes % % Eosinophils % % Basophils % % Neutrophils # (1.3-7.7) k/uL Lymphocytes # (1.0-4.8) k/uL Monocytes # (0-1.0) k/uL Eosinophils # (0-0.7) k/uL Basophils # (0-0.2) k/uL Sodium (137-145) mmol/L Potassium (3.5-5.1) mmol/L Chloride (98-107) mmol/L Carbon Dioxide (22-30) mmol/L Anion Gap mmol/L BUN (7-17) mg/dL Creatinine (0.52-1.04) mg/dL Est GFR (CKD-EPI)AfAm (>60 ml/min/1.73 sqM) Est GFR (CKD-EPI)NonAf (>60 ml/min/1.73 sqM) Glucose (74-99) mg/dL Calcium (8.4-10.2) mg/dL Total Bilirubin (0.2-1.3) mg/dL AST (14-36) U/L ALT (4-34) U/L Alkaline Phosphatase (38-126) U/L Total Protein (6.3-8.2) g/dL Albumin (3.5-5.0) g/dL Urine Color Urine Appearance (Clear) Urine pH (5.0-8.0) Ur Specific [place] (1.001-1.035) Urine Protein (Negative) Urine Glucose (UA) (Negative) Urine Ketones (Negative) Urine Blood (Negative) Urine Nitrite (Negative) Urine Bilirubin (Negative) Urine Urobilinogen (<2.0) mg/dL Ur Leukocyte Esterase (Negative) Urine RBC (0-5) /hpf Urine WBC (0-5) /hpf Ur Squamous Epith Cells (0-4) /hpf Urine Bacteria (None) /hpf Urine Mucus (None) /hpf Urine HCG, Qual Not Detected (Not Detectd) Salicylates mg/dL Urine Opiates Screen (NotDetected) Ur Oxycodone Screen (NotDetected) Urine Methadone Screen (NotDetected) Acetaminophen ug/mL Ur Barbiturates Screen (NotDetected) U Tricyclic Antidepress (NotDetected) Ur Phencyclidine Scrn (NotDetected) Ur Amphetamines Screen (NotDetected) U Methamphetamines Scrn (NotDetected) U Benzodiazepines Scrn (NotDetected) Urine Cocaine Screen (NotDetected) U Marijuana (THC) Screen (NotDetected) Serum Alcohol mg/dL Disposition Is patient prescribed a controlled substance at d/c from ED?: No Time of Disposition: 12:18 <Philip Chun - Last Filed: 08/30/24 12:16> <Laverne Villalta - Last Filed: 08/30/24 21:30> Clinical Impression: Depression Disposition: HOME SELF-CARE Condition: Stable Instructions (If sedation given, give patient instructions): Depression (ED) Additional Instructions: Do not use substances other than prescribed. Please do follow-up with your primary care physician in the next day or 2 for recheck. Please follow-up with mental health services as directed. Return for thoughts of self-harm, worsening symptoms or other concerns. Prescriptions: hydrOXYzine pamoate [Vistaril] 50 mg PO Q8HR PRN #10 capsule PRN Reason: Anxiety Referrals: Fabio Conklin MD [STAFF PHYSICIAN] - 1-2 days
[2024-08-30 06:16] LABS: Amphetamine Screen,Urine Not Detected (NotDetected); Barbiturate Screen,Urine Not Detected (NotDetected); Benzodiazepines Screen,Urine Not Detected (NotDetected); Cocaine Screen,Urine Not Detected (NotDetected); Methadone Screen, Urine Not Detected (NotDetected); Opiate Screen,Urine Not Detected (NotDetected); Oxycodone Screen, Urine Not Detected (NotDetected); Phencyclidine Screen,Urine Not Detected (NotDetected); Tricyclic Antidepressant,Urine Not Detected (NotDetected); Urn Cannabinoid Scrn Not Detected (NotDetected)
[2024-08-30 06:22] LABS: ALT 21 U/L (4-34); AST 21 U/L (14-36); Acetaminophen <10.0 ug/mL; African American GFR (CKD) >90 (>60 ml/min/1.73 sqM); Albumin 4.3 g/dL (3.5-5.0); Alcohol <10 mg/dL; Alkaline Phosphatase 107 U/L (38-126); Anion Gap 8 mmol/L; Blood Urea Nitrogen 6 mg/dL (7-17); Calcium 9.1 mg/dL (8.4-10.2); Carbon Dioxide 21 mmol/L (22-30); Chloride 110 mmol/L (98-107); Glucose 145 mg/dL (74-99); Non-African American GFR(CKD) 88 (>60 ml/min/1.73 sqM); Potassium 3.4 mmol/L (3.5-5.1); Salicylate <1.0 mg/dL; Sodium 139 mmol/L (137-145); Total Bilirubin 0.5 mg/dL (0.2-1.3); Total Protein 7.3 g/dL (6.3-8.2)
[2024-08-30 06:25] LABS: Basophils % (A) 1 %; Eosinophils # (A) 0.1 k/uL (0-0.7); Eosinophils % (A) 2 %; HCT 40.9 % (34.0-46.0); HGB 13.2 gm/dL (11.4-16.0); Lymphocytes # (A) 1.4 k/uL (1.0-4.8); Lymphocytes % (A) 22 %; MCHC 32.3 g/dL (31.0-37.0); Monocytes # (A) 0.3 k/uL (0-1.0); Monocytes % (A) 4 %; Neutrophils # (A) 4.4 k/uL (1.3-7.7); Neutrophils % (A) 70 %; Platelet Count 415 k/uL (150-450); RBC 4.54 m/uL (3.80-5.40); RDW 12.2 % (11.5-15.5); WBC 6.3 k/uL (3.8-10.6)
[2024-08-30 13:57] VITALS: BP 111/70; PULSE 85; RESP 17; TEMP 98
== END 2024-08-30 12:50 | disposition home or self-care (01) ==
LOC: EC 05:24 → EEVIPCON 05:24 → EC 12:50
DX: F32.A Depression, unspecified (principal); F41.9 Anxiety disorder, unspecified; Z87.891 Personal history of nicotine dependence; Z88.2 Allergy status to sulfonamides
CPT/HCPCS: 36415; 80053; 80143; 80179; 80306; 80320; 81001; 81025; 82075; 85025; 99284

== ENCOUNTER 2024-09-02 11:07 | Inpatient (IN) | payer MEDICARE, MEDICAID ==
--- NOTE | 2024-09-02 11:31 | ED ---
General Adult HPI - General Chief complaint: Psychiatric Symptoms Stated complaint: mental health Time Seen by Provider: 09/02/24 11:19 Source: patient, RN notes reviewed, old records reviewed Mode of arrival: ambulatory Limitations: no limitations - History of Present Illness Initial comments: 39-year-old female sent from [facility] for psychiatric evaluation, probable admission. Patient does admit to increased anxiety and depression. She states she is fearful of multiple things. She denies current suicidal or homicidal thoughts. No physical complaints. - Related Data Home Medications Medication Instructions Recorded Confirmed Levonorgestrel-Ethinyl Estrad 1 tab PO DAILY 09/02/24 09/02/24 (Vienva) 0.1-20 Mg-Mcg OLANZapine [ZyPREXA] 10 mg PO DIRECTED 09/02/24 09/02/24 Omeprazole 20 mg PO DAILY 09/02/24 09/02/24 diphenhydrAMINE [Benadryl] 50 mg PO DIRECTED 09/02/24 09/02/24 hydrOXYzine pamoate [Vistaril] 25 mg PO QID PRN 09/02/24 09/02/24 Allergies Allergy/AdvReac Type Severity Reaction Status Date / Time Sulfa (Sulfonamide Allergy Rash/Hives Verified 09/02/24 12:01 Antibiotics) Review of Systems ROS Statement: Those systems with pertinent positive or pertinent negative responses have been documented in the HPI. ROS Other: All systems not noted in ROS Statement are negative. Past Medical History Past Medical History: No Reported History Additional Past Medical History / Comment(s): due to acute psychosis. Kratom use History of Any Multi-Drug Resistant Organisms: None Reported Past Surgical History: No Surgical Hx Reported Additional Past Surgical History / Comment(s): xray of the left forearm shows evidence of open reduction and internal fixation of old fracture of the L forearm Past Anesthesia/Blood Transfusion Reactions: No Reported Reaction Past Psychological History: Schizophrenia Smoking Status: Former smoker Past Alcohol Use History: Occasional Past Drug Use History: Marijuana, Methamphetamine - Past Family History Father Family Medical History: No Reported History Additional Family Medical History / Comment(s): Age 52 Mother Family Medical History: No Reported History Additional Family Medical History / Comment(s): Age 52 General Exam Limitations: no limitations General appearance: alert, in no apparent distress Head exam: Present: atraumatic, normocephalic Eye exam: Present: normal appearance, PERRL ENT exam: Present: normal exam Neck exam: Present: normal inspection. Absent: tenderness, meningismus Respiratory exam: Present: normal lung sounds bilaterally. Absent: respiratory distress, wheezes Cardiovascular Exam: Present: regular rate, normal rhythm GI/Abdominal exam: Present: soft. Absent: distended, tenderness, guarding Extremities exam: Present: normal inspection, normal capillary refill Neurological exam: Present: alert, oriented X3, motor sensory deficit. Absent: CN II-XII intact Psychiatric exam: Present: depressed, anxious Skin exam: Present: warm, dry, intact Course Vital Signs 09/02/24 11:12 Temperature 98.2 F Pulse Rate 67 Respiratory 20 Rate Blood Pressure 110/69 O2 Sat by Pulse 97 Oximetry - Reevaluation(s) Reevaluation #1: 09/02/24 11:29 Cleared for EPS evaluation Medical Decision Making - Medical Decision Making Was pt. sent in by a medical professional or institution (, PA, ANESTHESIOLOGY TECH, urgent care, hospital, or alf...) When possible be specific @Sent in by [facility]. Did you speak to anyone other than the patient for history (EMS, parent, family, police, friend...)? What history was obtained from this source @ -No Did you review nursing and triage notes (agree or disagree)? Why? @ -I reviewed and agree with nursing and triage notes Were old charts reviewed (outside hosp., previous admission, EMS record, old EKG, old radiological studies, urgent care reports/EKG's, alf records)? Report findings @ -No old charts were reviewed Differential Mental Health Depression, anxiety, bipolar, psychosis, schizophrenia, borderline personality, situational depression, adjustment disorder, behavioral disorder, brain tumor, malingering, substance abuse, encephalopathy, medication reaction, dementia, hypothyroidism, degenerative neurologic disorder, lupus.... This is not meant to be all-inclusive list EKG interpreted by me (3pts min.). @ -As above X-rays interpreted by me (1pt min.). @ -None done CT interpreted by me (1pt min.). @ -None done U/S interpreted by me (1pt. min.). @ -None done What testing was considered but not performed or refused? (CT, X-rays, U/S, labs)? Why? @ -None What meds were considered but not given or refused? Why? @ -None Did you discuss the management of the patient with other professionals (professionals i.e. , PA, ANESTHESIOLOGY TECH, lab, RT, psych nurse, administrator social welfare, ham trimmer, teacher, flight radio officer, bilingual case manager)? Give summary @ -No Was smoking cessation discussed for >3mins.? @ -No Was critical care preformed (if so, how long)? @ -No Were there social determinants of health that impacted care today? How? (Homelessness, low income, unemployed, alcoholism, drug addiction, transportation, low edu. Level, literacy, decrease access to med. care, [facility], rehab)? @ -No Was there de-escalation of care discussed even if they declined (Discuss DNR or withdrawal of care, Hospice)? DNR status @ -No What co-morbidities impacted this encounter? (DM, HTN, Smoking, COPD, CAD, Cancer, CVA, ARF, Chemo, Hep., AIDS, mental health diagnosis, sleep apnea, morbid obesity)? @ -None Was patient admitted / discharged? Hospital course, mention meds given and route, prescriptions, significant lab abnormalities, going to OR and other pertinent info. @Patient was evaluated by EPS and will be admitted to this institution for further psychiatric care Undiagnosed new problem with uncertain prognosis? @ -No Drug Therapy requiring intensive monitoring for toxicity (Heparin, Nitro, Insulin, Cardizem)? @ -No Were any procedures done? @ -No Diagnosis/symptom? @Acute psychosis Acute, or Chronic, or Acute on Chronic? @Acute Uncomplicated (without systemic symptoms) or Complicated (systemic symptoms)? @ -Default Side effects of treatment? @ -No Exacerbation, Progression, or Severe Exacerbation? @ -No Poses a threat to life or bodily function? How? (Chest pain, [place], [place], pneumonia, PE, COPD, DKA, ARF, appy, cholecystitis, CVA, Diverticulitis, Homicidal, Suicidal, threat to staff... and all critical care pts) @Yes, self-harm - Lab Data Lab Results 09/02/24 09/02/24 Range/Units 11:34 11:37 Urine Opiates Screen Not Detected (NotDetected) Ur Oxycodone Screen Not Detected (NotDetected) Urine Methadone Screen Not Detected (NotDetected) Ur Barbiturates Screen Not Detected (NotDetected) U Tricyclic Antidepress Not Detected (NotDetected) Ur Phencyclidine Scrn Not Detected (NotDetected) Ur Amphetamines Screen Not Detected (NotDetected) U Methamphetamines Scrn Not Detected (NotDetected) U Benzodiazepines Scrn Detected H (NotDetected) Urine Cocaine Screen Not Detected (NotDetected) U Marijuana (THC) Screen Not Detected (NotDetected) Influenza Type A (PCR) Not Detected (Not Detectd) Influenza Type B (PCR) Not Detected (Not Detectd) RSV (PCR) Not Detected (Not Detectd) SARS-CoV-2 (PCR) Not Detected (Not Detectd) Disposition Clinical Impression: Acute psychosis, Schizophrenia Disposition: ADMITTED IP TO THIS HOSP Condition: Stable Is patient prescribed a controlled substance at d/c from ED?: No Referrals: Ashley Brown MD [Primary Care Provider] - 1-2 days Time of Disposition: 14:55
[2024-09-02 12:35] LABS: Amphetamine Screen,Urine Not Detected (NotDetected); Barbiturate Screen,Urine Not Detected (NotDetected); Benzodiazepines Screen,Urine Detected (NotDetected); Cocaine Screen,Urine Not Detected (NotDetected); Methadone Screen, Urine Not Detected (NotDetected); Opiate Screen,Urine Not Detected (NotDetected); Oxycodone Screen, Urine Not Detected (NotDetected); Phencyclidine Screen,Urine Not Detected (NotDetected); Tricyclic Antidepressant,Urine Not Detected (NotDetected); Urn Cannabinoid Scrn Not Detected (NotDetected)
[2024-09-02] MEDS: LORazepam 1 MG TAB PO STA (18:12)
[2024-09-03] MEDS ORDERED: IBUPROFEN 600 MG TAB PO PRN (00:23)
[2024-09-03] MEDS ORDERED: MAGNESIUM HYDROXIDE 2,400 MG/30 ML CUP PO PRN (00:23)
[2024-09-03] MEDS ORDERED: MAG HYDROX/AL HYDROX/SIMETH 355 ML BOTTLE PO PRN (00:23)
[2024-09-03] MEDS ORDERED: OLANZapine 5 MG TAB PO PRN (00:23)
[2024-09-03] MEDS ORDERED: OLANZapine 10 MG VIAL IM PRN (00:23)
[2024-09-03] MEDS ORDERED: ACETAMINOPHEN TAB 325 MG TAB PO PRN (00:23)
[2024-09-03 00:51] LABS: Amorphous Sediment,Urine Occasional /hpf; Appearance,Urine Cloudy (Clear); Bacteria,Urine Many /hpf; Bilirubin,Urine Negative (Negative); Blood,Urine Negative (Negative); Calcium Oxalate Crystals,Urine Many /hpf; Color,Urine Yellow; Glucose,Urine (UA) Negative (Negative); Ketones,Urine Trace (Negative); Leukocyte Esterase,Urine Small (Negative); Mucus,Urine Many /hpf; Nitrite,Urine Negative (Negative); Protein,Urine Trace (Negative); Specific Gravity,Urine 1.023 (1.001-1.035); Squamous Epithelial Cell,Urine 8 /hpf (0-4); Urobilinogen,Urine <2.0 mg/dL (<2.0); WBC,Urine 38 /hpf (0-5)
[2024-09-03] MEDS: diphenhydrAMINE 50 MG CAP PO SCH (04:32)
[2024-09-03] MEDS: OLANZapine 10 MG TAB PO SCH (04:32)
[2024-09-03] MEDS: NICOTINE 14MG/24HR PATCH TRANSDERM SCH (08:28)
[2024-09-03] MEDS: PANTOPRAZOLE 40 MG TABLET PO SCH (08:29)
[2024-09-03] MEDS: LEVONORGESTREL ETHINYL ESTRAD PO SCH (08:29)
[2024-09-03] MEDS: hydrOXYzine pamoate 25 MG CAP PO PRN (08:29)
[2024-09-03] MEDS ORDERED: LEVONORGESTREL ETHINYL ESTRAD PO SCH (09:00)
[2024-09-03] MEDS: BENZTROPINE MESYLATE 0.5 MG TAB PO SCH (10:29)
[2024-09-03] MEDS: LORazepam 1 MG TAB PO PRN (10:30)
--- NOTE | 2024-09-03 11:42 | P.HP ---
Psychiatric H&P - . H&P Date: 09/03/24 History & Physical: Allergies Allergy/AdvReac Type Severity Reaction Status Date / Time Sulfa (Sulfonamide Allergy Rash/Hives Verified 09/02/24 12:01 Antibiotics) Vital Signs Temp 98 F 09/03/24 00:47 Pulse 112 H 09/03/24 08:30 Resp 16 09/03/24 00:47 BP 106/75 09/03/24 08:30 Pulse Ox 99 09/03/24 00:47 FiO2 Intake & Output 09/02/24 09/03/24 09/03/24 18:59 06:59 18:59 Weight 73.482 kg 72.575 kg Laboratory Last Values Urine Color Yellow 09/02/24 11:34 Urine Appearance Cloudy (Clear) H 09/02/24 11:34 Urine pH 6.0 (5.0-8.0) 09/02/24 11:34 Ur Specific [place] 1.023 (1.001-1.035) 09/02/24 11:34 Urine Protein Trace (Negative) H 09/02/24 11:34 Urine Glucose (UA) Negative (Negative) 09/02/24 11:34 Urine Ketones Trace (Negative) H 09/02/24 11:34 Urine Blood Negative (Negative) 09/02/24 11:34 Urine Nitrite Negative (Negative) 09/02/24 11:34 Urine Bilirubin Negative (Negative) 09/02/24 11:34 Urine Urobilinogen <2.0 mg/dL (<2.0) 09/02/24 11:34 Ur Leukocyte Esterase Small (Negative) H 09/02/24 11:34 Urine WBC 38 /hpf (0-5) H 09/02/24 11:34 Ur Squamous Epith Cells 8 /hpf (0-4) H 09/02/24 11:34 Calcium Oxalate Crystal Many /hpf (None) H 09/02/24 11:34 Amorphous Sediment Occasional /hpf (None) H 09/02/24 11:34 Urine Bacteria Many /hpf (None) H 09/02/24 11:34 Urine Mucus Many /hpf (None) H 09/02/24 11:34 Urine HCG, Qual Not Detected (Not Detectd) 09/02/24 11:34 Urine Opiates Screen Not Detected (NotDetected) 09/02/24 11:34 Ur Oxycodone Screen Not Detected (NotDetected) 09/02/24 11:34 Urine Methadone Screen Not Detected (NotDetected) 09/02/24 11:34 Ur Barbiturates Screen Not Detected (NotDetected) 09/02/24 11:34 U Tricyclic Antidepress Not Detected (NotDetected) 09/02/24 11:34 Ur Phencyclidine Scrn Not Detected (NotDetected) 09/02/24 11:34 Ur Amphetamines Screen Not Detected (NotDetected) 09/02/24 11:34 U Methamphetamines Scrn Not Detected (NotDetected) 09/02/24 11:34 U Benzodiazepines Scrn Detected (NotDetected) H 09/02/24 11:34 Urine Cocaine Screen Not Detected (NotDetected) 09/02/24 11:34 U Marijuana (THC) Screen Not Detected (NotDetected) 09/02/24 11:34 Influenza Type A (PCR) Not Detected (Not Detectd) 09/02/24 11:37 Influenza Type B (PCR) Not Detected (Not Detectd) 09/02/24 11:37 RSV (PCR) Not Detected (Not Detectd) 09/02/24 11:37 SARS-CoV-2 (PCR) Not Detected (Not Detectd) 09/02/24 11:37 09/03/24 11:28 IDENTIFYING DATA: Patient is a 39-year-old female, on disability and staying with a friend CHIEF COMPLAINT: Psychosis HPI: Patient presented to the hospital with psychosis. EPS evaluation revealed, "[employer] Inspector spoke with MARILYN Mccain regarding pt. The following information was provided by Adán and Dr. Weller's dictation from pt's appointment today. Chief complaint for pt's visit is listed as: "I hear people talking inside my head me. People do not believe me. There are external forces greater than humans. I never broke the law I cannot control. They know all my thoughts I ever said. People are going to come after me. People get mad at me. They orange picking supervisor artificial intelligence. It is really scary for me. I am scared that I would be the last one living on this or. I do not want to kill myself but it is scary to think that I will be the last one in this world. I am scared of being alone. I cannot control my thoughts." pt had presented with labile mood at [facility] appointment today and it was noted that her speech was "grossly disorganized and it was very difficult to follow her train of thoughts." It was recommended that pt be placed in crisis bed or hospitalized if a crisis bed was unavailable. Assessment completed with pt 13:39 - 14:04. pt sitting on stretcher in room. pt's friend, Vladimir, at bedside; [place] remained at pt's request. pt states, "Dr. Weller said I had to come here. It's not been good for me lately." pt was initially hesitant to speak with fiction and nonfiction writer prose about why she was here, but did cristian fiction and nonfiction writer prose closer. pt then states that she is afraid because "I think that the world is ending. I think that everyone is going to be gone except me and that terrifies me." pt states that she "wouldn't say I'm suicidal" because she does not want to , but states that she does not want to live in a world where she is the only person. pt began crying and then began to go on a tangent about a "material plane." pt states that "the Abilify grounds me on a material plane. If they stop the Abilify, then I'm going to end up on a different material plane." pt also states, "There's so much more, but I don't think they really want me talking to you about it." pt denies SI and HI.pt cooperative with assessment." Patient seen and evaluated on the unit and was agreeable with speaking to fiction and nonfiction writer prose in office. She states that for the past 10 years she has been feeling as though the world is coming to an end. He has felt this way intermittently however does notice triggers worsening this feeling. She denied any current triggers or stressors but does report increase in anxiety. She states her outpatient psychiatrist started her on Zyprexa yesterday and she has yet to start this as she has previously been on Abilify with no improvement. She reports restlessness and was notably fidgety during interview. She reports generalized anxiety along with restlessness and feeling on edge. She reports hearing multiple voices in her head that are often conversing with one another. She denied any sleep or appetite changes, low energy or anhedonia. She reports using high doses of kratom, last use yesterday and this was strongly discouraged. Patient denies any suicidal or homicidal ideations intent or plan. At this time patient denies any visual hallucinations or paranoia. Patient denies any flight of ideas racing thoughts and increased in goal directed behavior. Patient admits to using kratom but denies any other substance use. PAST PSYCHIATRIC HISTORY: Patient has a history of schizophrenia, PTSD, alcohol use disorder. Patient most recently was prescribed Abilify 20 mg, gabapentin 800 mg 3 times daily, Vistaril 25 mg 3 times daily as needed, Remeron 15 mg at bedtime, Benadryl 50 mg at bedtime, Cogentin 0.5 mg twice daily. Patient reports 6 previous inpatient hospitalizations, most recent being here in 2021. Patient follows with Dr. Weller at [facility]. Patient denies any history of suicide attempts in the past. PMH: as per ER note ALLERGIES: as per EMR SUBSTANCE USE HISTORY: Patient has been using excessive amounts of kratom but denies any alcohol or nicotine use FAMILY PSYCHIATRIC/SUBSTANCE USE HISTORY: Patient reports mom has bipolar disorder and used opiates, dad abuse alcohol SOCIAL HISTORY: Patient was born and raised in [place]. She has and has no kids, completed college. She is on SSD MENTAL STATUS EXAM: General Appearance: Patient appears to be stated age is alert, directable, and attempts to cooperate. Patient appears to have fair hygiene and grooming. Behavior: Patient is seated without any agitated behavior. Speech: Patient's speech is fluent and nonpressured. Mood/Affect: Patient reports their mood is "okay", affect is congruent and constricted. Suicidality/Homicidality: Patient denies having any homicidal ideation intent or plan. Denies any suicidal ideations intent or plan Perceptions: Patient denies any visual hallucinations and reports auditory hallucinations described as multiple people conversing Though content/process: There is evidence of nonbizarre delusions and paranoia Memory and concentration: AOX3, grossly intact for the purposes of this session. Can spell "WORLD" backwards Judgment and insight: Poor STRENGTHS/WEAKNESSES: strength is that patient is resilient. Weakness is that patient abuses kratom, has poor judgment and is impulsive INTELLECT: Average IMPRESSIONS: Schizophrenia Rule out substance-induced psychosis History of PTSD History of alcohol use disorder PLAN: -Patient is admitted under voluntary status to [facility] for stabilization of psychiatric symptoms and safety. Patient has signed adult voluntary form and medication consent and is placed in patient's chart. -Medications : Start Zyprexa 10 mg at bedtime for psychosis, Cogentin 0.5 mg twice daily for EPS -Ativan and Haldol PRN for agitation/aggression -Patient was counselled on substance abuse and desired to cut back on use-Will offer patient subtance use rehab however patient appears precontemplative as she denied extensive use of kratom and did not wish to get treatment for this -Patient was informed of the risks, benefits and side effects of the medication and patient verbally consented to taking the medications. Patient signed med consent form and was placed in chart. -Internal Medicine consult to perform medical evaluation and physical. -NRT -not needed as patient does not smoke -SW on board for discharge planning. Encourage patient to participate in groups to work on coping skills. 09/03/24 11:30
--- NOTE | 2024-09-03 15:39 | P.MDCNMH ---
History of Present Illness H&P Date: 09/03/24 This is a 39-year-old female who presented to the emergency department from [facility] for mental health evaluation. Patient follows with Dr. Ernesto Nye in the outpatient setting with a past medical history of anxiety/depression with schizophrenia. Patient does admit to smoking and occasionally uses marijuana with a history of methamphetamine use. Urine drug screen was performed with positive for benzos although was given a dose of Ativan in the ER. Patient being admitted to [facility] for further psychiatric evaluation. On exam patient denies any chest pain or shortness of breath. Patient reporting some increasing depression although denies thoughts of wanting to harm herself or others. Patient has been encouraged to attend group therapy sessions and compliance with medications and psychiatry. REVIEW OF SYSTEMS: CONSTITUTIONAL: No fever, no malaise, no fatigue. HEENT: No recent visual problems or hearing problems. Denied any sore throat. CARDIOVASCULAR: No chest pain, orthopnea, PND, no palpitations, no syncope. PULMONARY: No shortness of breath, no cough, no hemoptysis. GASTROINTESTINAL: No diarrhea, no nausea, no vomiting, no abdominal pain. NEUROLOGICAL: No headaches, no weakness, no numbness. HEMATOLOGICAL: Denies any bleeding or petechiae. GENITOURINARY: Denies any burning micturition, frequency, or urgency. MUSCULOSKELETAL/RHEUMATOLOGICAL: Denies any joint pain, swelling, or any muscle pain. ENDOCRINE: Denies any polyuria or polydipsia. The rest of the 14-point review of systems is negative. PHYSICAL EXAMINATION: GENERAL: The patient is asleep although easily arousable, alert and oriented x3, not in any acute distress. Well developed, well nourished. HEENT: Pupils are round and equally reacting to light. EOMI. No scleral icterus. No conjunctival pallor. Normocephalic, atraumatic. No pharyngeal erythema. No thyromegaly. CARDIOVASCULAR: S1 and S2 present. No murmurs, rubs, or gallops. PULMONARY: Chest is clear to auscultation, no wheezing or crackles. ABDOMEN: Soft, thin, nontender, nondistended, normoactive bowel sounds. No palpable organomegaly. MUSCULOSKELETAL: No joint swelling or deformity. EXTREMITIES: No cyanosis, clubbing, or pedal edema. NEUROLOGICAL: Gross neurological examination did not reveal any focal deficits. SKIN: No rashes. Assessment: Acute psychosis with auditory hallucinations History of depression and anxiety History of schizophrenia Continued ongoing nicotine dependence Past history of EtOH abuse and methamphetamine use GI prophylaxis Full code Plan: Patient admitted voluntarily on 3 W. for further psychiatric evaluation. Patient reports to hearing voices and in acute psychosis Patient denies wanting to harm herself or others Encouraged the patient to attend group therapy sessions and compliance with medications and psychiatry Patient to continue with [facility] outpatient Patient has been instructed to follow-up with her primary care provider on discharge from hospital thank you kindly for this consultation The impression and plan of care has been dictated by Laverne Davidson, Nurse Practitioner as directed. Dr. Emily MD I have performed a history and examination and MDM of this patient, discussed the same with the dictator, and agree with the dictator's assessment and plan as written ,documented as a scribe. Based on total visit time, I have performed more than 50% of the visit. Past Medical History Past Medical History: No Reported History Additional Past Medical History / Comment(s): due to acute psychosis. Kratom use History of Any Multi-Drug Resistant Organisms: None Reported Past Surgical History: No Surgical Hx Reported Additional Past Surgical History / Comment(s): xray of the left forearm shows evidence of open reduction and internal fixation of old fracture of the L forearm Past Anesthesia/Blood Transfusion Reactions: No Reported Reaction Past Psychological History: Schizophrenia Smoking Status: Former smoker Past Alcohol Use History: Occasional Past Drug Use History: Marijuana, Methamphetamine - Past Family History Father Family Medical History: No Reported History Additional Family Medical History / Comment(s): Age 52 Mother Family Medical History: No Reported History Additional Family Medical History / Comment(s): Age 52 Medications and Allergies Home Medications Medication Instructions Recorded Confirmed Type Levonorgestrel-Ethinyl Estrad 1 tab PO DAILY 09/02/24 09/02/24 History (Vienva) 0.1-20 Mg-Mcg OLANZapine [ZyPREXA] 10 mg PO DIRECTED 09/02/24 09/02/24 History Omeprazole 20 mg PO DAILY 09/02/24 09/02/24 History diphenhydrAMINE [Benadryl] 50 mg PO DIRECTED 09/02/24 09/02/24 History hydrOXYzine pamoate [Vistaril] 25 mg PO QID PRN 09/02/24 09/02/24 History Allergies Allergy/AdvReac Type Severity Reaction Status Date / Time Sulfa (Sulfonamide Allergy Rash/Hives Verified 09/02/24 12:01 Antibiotics) Physical Exam Vitals: Vital Signs Temp Pulse Pulse Resp BP BP Pulse Ox 09/03/24 08:30 112 H 106/75 09/03/24 00:47 98 F 94 16 108/72 99 09/02/24 11:12 98.2 F 67 20 110/69 97 Intake and Output 09/02/24 09/03/24 09/03/24 22:59 06:59 14:59 Other: Weight 72.575 kg Cranial Nerve Examination - Cranial Nerves Cranial Nerve I- Olfactory: Intact Cranial Nerve II- Optic: Intact Cranial Nerve III- Oculomotor: Intact Cranial Nerve IV- Trochlear: Intact Cranial Nerve V- Trigeminal: Intact Cranial Nerve - Abducens: Intact Cranial Nerve VII- Facial: Intact Cranial Nerve VIII- Auditory: Intact Cranial Nerve IX- Glossopharyngeal: Intact Cranial Nerve X- Vagus: Intact Cranial Nerve XI- Accessory: Intact Cranial Nerve XII- Hypoglossal: Intact Results Labs: Abnormal Lab Results - Last 24 Hours (Table) 09/02/24 09/02/24 Range/Units 11:34 11:34 Urine Appearance Cloudy H (Clear) Urine Protein Trace H (Negative) Urine Ketones Trace H (Negative) Ur Leukocyte Esterase Small H (Negative) Urine WBC 38 H (0-5) /hpf Ur Squamous Epith Cells 8 H (0-4) /hpf Calcium Oxalate Crystal Many H (None) /hpf Amorphous Sediment Occasional H (None) /hpf Urine Bacteria Many H (None) /hpf Urine Mucus Many H (None) /hpf U Benzodiazepines Scrn Detected H (NotDetected) Assessment and Plan Time with Patient: Less than 30
[2024-09-04] MEDS: BENZTROPINE MESYLATE 1 MG TAB PO SCH (08:33)
--- NOTE | 2024-09-04 10:13 | P.PN ---
Progress Note - Text Progress Note Date: 09/04/24 Interval History: Patient was seen wandering the hallways and was directable and agreeable to mauricio lozano with typewriter ribbon winder in the office. She reports experiencing some restless legs overnight which she attributes to Benadryl. She reports sleeping good otherwise and reports improvement in her voices, denying hearing any voices at this time. She reports improved anxiety. She states her roommate visited yesterday. Patient continues to display restlessness and was agreeable with increasing Cogentin. At this time patient denies any suicidal or homicidal ideations, intent or plan. Patient denies any auditory, visual hallucinations and denies any paranoia or delusions. Patient has been compliant with meds. Mental Status Exam: General Appearance: Patient appears to be stated age is alert, directable, and cooperative. Behavior: Patient is restless Speech: Patient's speech is fluent and nonpressured. Mood/Affect: Mood is improving mildly, affect is congruent and constricted. Suicidality/Homicidality: Patient denies having any suicidal or homicidal ideation intent or plan. Perceptions: Patient denies any visual hallucinations and denies any auditory hallucinations Though content/process: There is no evidence of any delusional thought content and thought process is linear and logical. Memory and concentration: AOX3, grossly intact for the purposes of this session Judgment and insight: Improving mildly Assessment Schizophrenia Rule out substance-induced psychosis (kratom) History of PTSD History of alcohol use disorder Plan: -Patient continues to meet criteria for inpatient psychiatric admission for symptom stabilization and safety. Patient has signed adult voluntary form and medication consent and was placed in patient's chart. -Medications: Continue Zyprexa 10 mg at bedtime for psychosis, increase Cogentin to 1 mg twice daily for EPS and discontinue Benadryl 50 mg at bedtime -When necessary Ativan and Haldol for agitation/aggression. -Labs: Reviewed -SW on board for discharge planning. Encouraged the patient to participate in milieu. Anticipate discharge early next week, home with roommate pending stabilization and safety concerns
[2024-09-04 11:19] LABS: Basophils # (A) 0.1 k/uL (0-0.2); Basophils % (A) 1 %; Eosinophils # (A) 0.2 k/uL (0-0.7); Eosinophils % (A) 3 %; HCT 42.3 % (34.0-46.0); HGB 13.7 gm/dL (11.4-16.0); Lymphocytes # (A) 1.7 k/uL (1.0-4.8); Lymphocytes % (A) 25 %; MCH 29.6 pg (25.0-35.0); MCHC 32.3 g/dL (31.0-37.0); MCV 91.9 fL (80.0-100.0); Monocytes # (A) 0.3 k/uL (0-1.0); Monocytes % (A) 4 %; Neutrophils # (A) 4.3 k/uL (1.3-7.7); Neutrophils % (A) 65 %; Platelet Count 413 k/uL (150-450); RBC 4.61 m/uL (3.80-5.40); RDW 12.2 % (11.5-15.5); WBC 6.6 k/uL (3.8-10.6)
[2024-09-04 11:38] LABS: ALT 16 U/L (4-34); AST 21 U/L (14-36); African American GFR (CKD) >90 (>60 ml/min/1.73 sqM); Albumin 4.3 g/dL (3.5-5.0); Alkaline Phosphatase 86 U/L (38-126); Anion Gap 8 mmol/L; Blood Urea Nitrogen 10 mg/dL (7-17); Calcium 9.5 mg/dL (8.4-10.2); Carbon Dioxide 23 mmol/L (22-30); Chloride 109 mmol/L (98-107); Glucose 96 mg/dL (74-99); Non-African American GFR(CKD) 87 (>60 ml/min/1.73 sqM); Potassium 4.6 mmol/L (3.5-5.1); Sodium 140 mmol/L (137-145); Total Bilirubin 0.3 mg/dL (0.2-1.3); Total Protein 7.4 g/dL (6.3-8.2)
[2024-09-04] MEDS: traZODone HCL 50 MG TAB PO PRN (20:10)
[2024-09-05] MEDS ORDERED: DRY MOUTH SPRAY 44.3 SPRAY/44.3 ML SPRAY MUCOUS MEM PRN (10:22)
[2024-09-05 10:24] LABS: Chol/HDL Ratio 5.28 Ratio; LDL Cholesterol,Calculated 147.1 mg/dL (0.0-131.0)
--- NOTE | 2024-09-05 11:28 | P.PN ---
Progress Note - Text Progress Note Date: 09/05/24 Interval History: Patient was seen laying in bed and was directable and agreeable to speak with caption writer in the office. She states feeling well today and her restlessness has also improved with the increase in Cogentin. She reports sleeping and eating okay however does report some restless legs overnight that does impact sleep. She states she will return home with her friend upon discharge. At this time patient denies any suicidal or homicidal ideations, intent or plan. Patient denies any auditory, visual hallucinations and denies any paranoia or delusions. Patient denies any side effects from the medications and has been compliant with meds. Mental Status Exam: General Appearance: Patient appears to be stated age is alert, directable, and cooperative. Behavior: Patient is calmly seated without any agitated behavior. Speech: Patient's speech is fluent and nonpressured. Mood/Affect: Mood is improving mildly, affect is congruent and constricted. Suicidality/Homicidality: Patient denies having any suicidal or homicidal ideation intent or plan. Perceptions: Patient denies any visual hallucinations and denies any auditory hallucinations Though content/process: There is no evidence of any delusional thought content and thought process is linear and goal-directed. Memory and concentration: AOX3, grossly intact for the purposes of this session Judgment and insight: Improving mildly Assessment Schizophrenia Rule out substance-induced psychosis (kratom) History of PTSD History of alcohol use disorder Plan: -Patient continues to meet criteria for inpatient psychiatric admission for symptom stabilization and safety. Patient has signed adult voluntary form and medication consent and was placed in patient's chart. -Medications: Continue Zyprexa 10 mg at bedtime for psychosis, Cogentin 1 mg twice daily for EPS, add Requip 0.25 mg at bedtime for RLS -When necessary Ativan and Haldol for agitation/aggression. -Labs: Reviewed -SW on board for discharge planning. Encouraged the patient to participate in milieu. Anticipate discharge home with roommate on Sunday pending stability in voices
--- NOTE | 2024-09-06 12:04 | P.PN ---
Progress Note - Text Progress Note Date: 09/06/24 Interval history: Patient was seen laying in her bed today and was directable and agreeable to speak with story writer. Patient claims that she is feeling a bit restless during the day. She claims that Cogentin has helped in the past. She states that the not her anxiety is improving, denies any depression at this time. Claims that the voices have been resolving not hearing them any longer. States that her appetite is fair, mainly keeping himself. At this time patient denies any suicidal or homicidal ideations intent or plan. Denies any Auditory or visual hallucinations. Patient denies any side effects from the medications and has been compliant with meds. Mental status exam: General Appearance: Patient appears to be stated age is alert, directable, and cooperative. Behavior: No agitated behavior. Patient is calm and directable Speech: Patient's speech is fluent and nonpressured. Mood/Affect: Mood is improving mildly, affect is congruent and constricted. Suicidality/Homicidality: Patient denies having any suicidal or homicidal ideation intent or plan. Perceptions: Patient denies any auditory or visual hallucinations. Though content/process: There is no evidence of any delusional thought content and thought process is linear and goal-directed. Focused on her medications Memory and concentration: AOX3, grossly intact for the purposes of this session Judgment and insight: improving mildly Assessment/Plan: Continue with current diagnosis. Patient continues to meet criteria for inpatient psychiatric admission for symptom stabilization and safety. Patient will be maintained on current psychotropic medication regimen, increase Requip to 0.25 mg twice daily for restlessness, consider propranolol for akathisia however patient's blood pressure is fairly low. Monitor for medication compliance and for any psychotropic medication side effects. Will continue to monitor ongoing response to treatment. Encouraged participation in milieu.
[2024-09-07 06:35] VITALS: RESP 14
--- NOTE | 2024-09-07 10:18 | P.PN ---
Progress Note - Text Progress Note Date: 09/07/24 Interval history: Patient was seen in the hallways and was directable and agreeable to speak with typewriter assembler. Patient claims that she is doing better today overall. States that she is feeling less restless today, claims that the Requip was helping her. She states that she would likely be discharged tomorrow if she can. Claims that she was able to sleep fairly last night. Claims that her mood and anxiety have been improving. denies any depression at this time. Claims that the voices have been resolving not hearing them any longer. States that her appetite is fair, mainly keeping himself. At this time patient denies any suicidal or homicidal ideations intent or plan. Denies any Auditory or visual hallucinations. Patient denies any side effects from the medications and has been compliant with meds. Mental status exam: General Appearance: Patient appears to be stated age is alert, directable, and cooperative. Behavior: No agitated behavior. Patient is calm and directable Speech: Patient's speech is fluent and nonpressured. Mood/Affect: Mood is improving mildly, affect is congruent and improving Suicidality/Homicidality: Patient denies having any suicidal or homicidal ideation intent or plan. Perceptions: Patient denies any auditory or visual hallucinations. Though content/process: There is no evidence of any delusional thought content and thought process is linear and goal-directed. Memory and concentration: AOX3, grossly intact for the purposes of this session Judgment and insight: improving mildly Assessment/Plan: Continue with current diagnosis. Patient continues to meet criteria for inpatient psychiatric admission for symptom stabilization and safety. Patient will be maintained on current psychotropic medication regimen. Monitor for medication compliance and for any psychotropic medication side effects. Will continue to monitor ongoing response to treatment. Encouraged participation in milieu.
[2024-09-08 07:00] VITALS: BP 99/63; PULSE 60; TEMP 97.7
--- NOTE | 2024-09-08 12:35 | P.DS ---
Providers Date of admission: 09/02/24 22:47 Expected date of discharge: 09/08/24 Attending physician: Laura Chun MD Consults: 09/03/24 00:23 Consult Physician Routine Consulting Provider: [facility] Consult Reason/Comments: H&P and medical Do you want consulting provider notified?: Yes, Notify in am Primary care physician: Ashley Brown - Discharge Diagnosis(es) (1) Schizophrenia Current Visit: Yes Status: Acute Priority: High Hospital Course: Admission HPI: Admission note was completed by auto service writer "Patient presented to the hospital with psychosis. EPS evaluation revealed, "Magazine Grinder Loader spoke with MARILYN Mccain regarding pt. The following information was provided by Adán and Dr. Weller's dictation from pt's appointment today. Chief complaint for pt's visit is listed as: "I hear people talking inside my head me. People do not believe me. There are external forces greater than humans. I never broke the law I cannot control. They know all my thoughts I ever said. People are going to come after me. People get mad at me. They pecan picker artificial intelligence. It is really scary for me. I am scared that I would be the last one living on this or. I do not want to kill myself but it is scary to think that I will be the last one in this world. I am scared of being alone. I cannot control my thoughts." pt had presented with labile mood at [facility] appointment today and it was noted that her speech was "grossly disorganized and it was very difficult to follow her train of thoughts." It was recommended that pt be placed in crisis bed or hospitalized if a crisis bed was unavailable. Assessment completed with pt 13:39 - 14:04. pt sitting on stretcher in room. pt's friend, Vail, at bedside; Vail remained at pt's request. pt states, "Dr. Weller said I had to come here. It's not been good for me lately." pt was initially hesitant to speak with auto service writer about why she was here, but did ezeon auto service writer closer. pt then states that she is afraid because "I think that the world is ending. I think that everyone is going to be gone except me and that terrifies me." pt states that she "wouldn't say I'm suicidal" because she does not want to , but states that she does not want to live in a world where she is the only person. pt began crying and then began to go on a tangent about a "material plane." pt states that "the Abilify grounds me on a material plane. If they stop the Abilify, then I'm going to end up on a different material plane." pt also states, "There's so much more, but I don't think they really want me talking to you about it." pt denies SI and HI.pt cooperative with assessment." Patient seen and evaluated on the unit and was agreeable with speaking to auto service writer in office. She states that for the past 10 years she has been feeling as though the world is coming to an end. He has felt this way intermittently however does notice triggers worsening this feeling. She denied any current triggers or stressors but does report increase in anxiety. She states her outpatient psychiatrist started her on Zyprexa yesterday and she has yet to start this as she has previously been on Abilify with no improvement. She reports restlessness and was notably fidgety during interview. She reports generalized anxiety along with restlessness and feeling on edge. She reports hearing multiple voices in her head that are often conversing with one another. She denied any sleep or appetite changes, low energy or anhedonia. She reports using high doses of kratom, last use yesterday and this was strongly discouraged. Patient denies any suicidal or homicidal ideations intent or plan. At this time patient denies any visual hallucinations or paranoia. Patient denies any flight of ideas racing thoughts and increased in goal directed behavior. Patient admits to using kratom but denies any other substance use." Hospital course: Upon admission to the unit patient was directable and agreeable to commence treatment and signed adult voluntary form.. Patient got along well with other patients on the unit and followed unit protocol. Patient was compliant with the medications and denied any side effects throughout hospital course. Patient was started on Zyprexa 10 mg at bedtime for psychosis, Cogentin increased to 1 mg twice daily for EPS, Requip increased to 0.25 mg twice daily for RLS and Benadryl 50 mg which ended up being discontinued as patient noted worsening in restlessness with this med. Patient spoke of her stressors and engaged in therapy both group and individual. Patient was also seen by medical team for history and physical exam. Throughout the course of the hospitalization patient gradually improved with regards to mood, anxiety, sleep and returned back to their baseline level of functioning. On the day of discharge patient denied any suicidal or homicidal ideations intent or plan denied any auditory or visual hallucinations. The patient denied any access to guns or weapons. Patient denied any paranoia and did not endorse any delusions. Patient does have a significant history of substance abuse and was counseled on abstaining from all substances including alcohol and marijuana. Patient reportedly was using high doses of kratom and was strongly discouraged of this use. Rehab was offered to patient however she declined and discussed with patient's outpatient provider Dr. Weller with possibly starting Suboxone to which patient seemed amenable to this. Patient was also counseled on the medications and need for regular compliance and was encouraged to follow-up with their outpatient appointment for mental health and also for primary care. Patient to be discharged home with friend with [facility] follow-up. Friend confirmed no firearms in the home Mental status exam: General Appearance: Patient appears to be stated age is alert, pleasant, and cooperative. Patient is in no acute distress and has improved hygiene and grooming Behavior: There is evidence of psychomotor restlessness however significantly improved than previous encounter Speech: Patient's speech is fluent and nonpressured. Mood/Affect: Patient reports their mood is "good", affect is congruent and euthymic. Suicidality/Homicidality: Patient denies having any suicidal or homicidal ideation intent or plan. Perceptions: Patient denies any auditory or visual hallucinations. Though content/process: There is no evidence of any delusional thought content and thought process is linear and goal-directed. More future oriented Memory and concentration: AOX3, grossly intact for the purposes of this session. Can spell "WORLD" backwards correctly. Judgment and insight: Fair Impression: Schizophrenia Rule out substance-induced psychosis (kratom) History of PTSD History of alcohol use disorder Plan: -Continue with discharge today as patient has improved and stabilized psychiatrically and is not currently an imminent threat to themself and/or others. Patient will remain at chronically elevated risk for harm to self and/or others due to their impulsivity and substance abuse. -Continue medications: Zyprexa 10 mg at bedtime, Cogentin 1 mg twice daily, Requip 0.25 mg twice daily, trazodone 50 mg as needed at bedtime -Patient was counseled on the need for medication compliance and appropriate follow-up at mental health and also primary care for medical issues. Patient verbalized understanding and agreed. -Social work to help coordinate patients discharge today arrange for and conduct family meeting to ensure safety upon discharge and answer any questions/concerns. also to ensure safe home environment that guns/weapons are either removed from the home or locked away. Social work also to arrange for pat ients follow up appointments with [facility] for psychiatric care along with follow up with primary care provider. -Patient counseled on abstaining from recreational drugs and marijuana and alcohol. Was informed/educated on the adverse effects on their physical and mental health. Patient verbally agreed and understood. Patient was offered substance abuse treatment however declined at this time. -Patient was instructed to return to the hospital or seek immediate medical care if their psychiatric or medical symptoms do worsen or reoccur. Abnormal Labs 09/02/24 09/02/24 09/04/24 11:34 11:34 10:47 Chloride 109 H Triglycerides 213.00 H Cholesterol 234.00 H LDL Cholesterol, Calc 147.1 H VLDL Cholesterol, Calc 42.60 H Urine Appearance Cloudy H Urine Protein Trace H Urine Ketones Trace H Ur Leukocyte Esterase Small H Urine WBC 38 H Ur Squamous Epith Cells 8 H Calcium Oxalate Crystal Many H Amorphous Sediment Occasional H Urine Bacteria Many H Urine Mucus Many H U Benzodiazepines Scrn Detected H Allergies Allergy/AdvReac Type Severity Reaction Status Date / Time Sulfa (Sulfonamide Allergy Rash/Hives Verified 09/02/24 12:01 Antibiotics) Vital Signs Temp 97.7 F 09/08/24 06:15 Pulse 60 09/08/24 06:15 Resp 14 09/08/24 06:15 BP 99/63 09/08/24 06:15 Pulse Ox 98 09/08/24 06:15 FiO2 Intake & Output 09/07/24 09/08/24 09/08/24 18:59 06:59 18:59 Weight 72.8 kg Plan - Discharge Summary Discharge Rx Participant: No New Discharge Prescriptions: New Benztropine Mesylate [Cogentin] 1 mg PO BID 30 Days #60 tab OLANZapine [ZyPREXA] 10 mg PO HS 30 Days #30 tab traZODone HCL [Desyrel] 50 mg PO HS PRN 30 Days #30 tab PRN Reason: Insomnia rOPINIRole HCL [Requip] 0.25 mg PO BID 30 Days #60 tab Continue Levonorgestrel-Ethinyl Estrad (Vienva) 0.1-20 Mg-Mcg 1 tab PO DAILY Omeprazole 20 mg PO DAILY 30 Days #30 cap Discontinued diphenhydrAMINE [Benadryl] 50 mg PO DIRECTED OLANZapine [ZyPREXA] 10 mg PO DIRECTED hydrOXYzine pamoate [Vistaril] 25 mg PO QID PRN PRN Reason: Anxiety Discharge Medication List Levonorgestrel-Ethinyl Estrad (Vienva) 0.1-20 Mg-Mcg 1 tab PO DAILY 09/02/24 [History] Benztropine Mesylate [Cogentin] 1 mg PO BID 30 Days #60 tab 09/08/24 [Rx] OLANZapine [ZyPREXA] 10 mg PO HS 30 Days #30 tab 09/08/24 [Rx] Omeprazole 20 mg PO DAILY 30 Days #30 cap 09/08/24 [Rx] rOPINIRole HCL [Requip] 0.25 mg PO BID 30 Days #60 tab 09/08/24 [Rx] traZODone HCL [Desyrel] 50 mg PO HS PRN 30 Days #30 tab 09/08/24 [Rx] Follow up Appointment(s)/Referral(s): [facility] [Outside] - 09/09/24 1:00 pm (09/09 at 1pm with Miley Shane 09/17 at 3:30pm with Dr. Weller) Ashley Brown MD [Primary Care Provider] - 1-2 days Patient Instructions/Handouts: Schizophrenia (DC), Polysubstance Abuse (ED) Activity/Diet/Wound Care/Special Instructions: [facility] Discharge Info Avoid the use of street drugs and alcohol. Take all medications as prescribed. When you are in need of refills on your medications, please contact your outpatient medical provider and/or outpatient psychiatrist. Please go to your scheduled outpatient appointments for aftercare treatment. If symptoms return or become worse, call the crisis line at or and/or visit the nearest emergency room for assistance. National Suicide and Crisis Lifeline - call or text 988 Discharge Disposition: HOME SELF-CARE
== END 2024-09-08 12:50 | disposition home or self-care (01) | DRG 885 ==
LOC: EC 11:07 → 3MHU 22:47
PROVIDERS: ADMIT Psychiatry & Neurology Psychiatry; ATTEND Psychiatry & Neurology Psychiatry
DX: F20.9 Schizophrenia, unspecified (principal); F41.1 Generalized anxiety disorder; F32.A Depression, unspecified; F43.10 Post-traumatic stress disorder, unspecified; F17.200 Nicotine dependence, unspecified, uncomplicated; F19.10 Other psychoactive substance abuse, uncomplicated; G25.81 Restless legs syndrome; Z88.2 Allergy status to sulfonamides
CPT/HCPCS: 80053; 80061; 80306; 81001; 81025; 82075; 83036; 84443; 85025; 87636; 99285

== ENCOUNTER → 2025-02-10 | Outpatient (CLI) | payer MEDICARE, MEDICAID ==
--- NOTE | 2025-02-10 10:09 | MM ---
Reason for Exam: Screening (asymptomatic). Last mammogram was performed 1 year(s) and 1 month(s) ago. Patient History: Menarche at age 14. Patient has no children. Perimenopausal. Currently using Hormonal Contraceptives, beginning at age 36 for 2 years. Paternal grandmother had breast cancer. Last menstrual period: 01/15/2025 Risk Values: Montse 5 year model risk: 0.6%. NCI Lifetime model risk: 10.1%. Prior Study Comparison: 01/23/2024 Bilateral MG screening mammo w CAD, [facility]. 01/28/2024 Bilateral MG 3D work up w/cad EVIN, [facility]. Tissue Density: The breasts are heterogeneously dense, which may obscure small masses. Findings: Analyzed By CAD. Right breast: There is no suspicious group of microcalcifications or new suspicious mass. Left breast: There is no suspicious group of microcalcifications or new suspicious mass. Overall Assessment: Negative, BI-RAD 1 Management: Screening Mammogram of both breasts in [address] [facility] will attempt to contact patient to return for supplemental views and ultrasound if indicated. Patient should continue monthly self-breast exams. A clinical breast exam by your physician is recommended on an annual basis. This exam should not preclude additional follow-up of suspicious palpable abnormalities. Note on Montse scores and lifetime risk: 1. A Montse score greater than 3% is considered moderate risk. If this is the case, consider specialist referral to assess eligibility for a risk reducing agent. 2. If overall lifetime risk for the development of breast cancer is 20% or higher, the patient may qualify for future screening with alternating mammogram and breast MRI. [facility], , 02/10/2025 10:07 AM. Electronically signed and approved by: Micheal Ramos DO
== END | disposition home or self-care (01) ==
LOC: RADMAMWWP 09:41
PROVIDERS: ATTEND Family Medicine
DX: Z12.31 Encounter for screening mammogram for malignant neoplasm of breast (principal); R92.333 Mammographic heterogeneous density, bilateral breasts; Z80.3 Family history of malignant neoplasm of breast; Z92.0 Personal history of contraception
CPT/HCPCS: 77063; 77067